=== PATIENT | female | born 1945 | race Caucasian/White ===

== ENCOUNTER → 2016-07-05 | Outpatient (CLI) | payer MEDICARE ==
--- NOTE | 2016-07-05 13:57 | XR ---
EXAMINATION TYPE: XR shoulder limited LT DATE OF EXAM: 07/05/2016 1:52 PM CLINICAL HISTORY: pain COMPARISON: NONE TECHNIQUE: 2 views of the left shoulder are obtained. FINDINGS: There is no acute fracture/dislocation evident. The acromioclavicular and glenohumeral estefania int spaces appear within normal limits. The visualized ribs are intact and unremarkable. IMPRESSION: 1. There is no acute fracture or dislocation. ICD 10 NO FRACTURE, INITIAL EVALUATION
--- NOTE | 2016-07-05 13:58 | XR ---
EXAMINATION TYPE: XR lumbar spine 2 or 3V DATE OF EXAM: 07/05/2016 1:52 PM CLINICAL HISTORY: pain TECHNIQUE: Three views of the lumbar spine are submitted. COMPARISON: None. FINDINGS: There are 5 lumbar type vertebral bodies identified. The lumbar spine shows satisfactory alignment w ithout evidence of acute fracture or dislocation. Vertebral body heights are within normal limits. Severe disc space narrowing and vacuum disc at L4-5 and L5-S1. Grade 1 anterolisthesis L4 and L5 prema suring 5 mm. The overlying soft tissue appears unremarkable. IMPRESSION: No acute fracture or dislocation is seen in the lumbar spine. ICD 10 NO FRACTURE, INITIAL EVALUATION
--- NOTE | 2016-07-05 14:00 | XR ---
EXAMINATION TYPE: XR cervical spine limited DATE OF EXAM: 07/05/2016 1:52 PM CLINICAL HISTORY: pain TECHNIQUE: 3 views of the cervical spine are submitted. COMPARISON: None. FINDINGS: There is satisfactory in alignment without evidence of acute fracture or dislocation. The pre-vertebral soft tissue appears within normal limits. Moderate degenerative disc space narrowing a nd spondylosis throughout. The C1-C2 articulation is unremarkable on the open mouth view. IMPRESSION: No acute fracture or dislocation is seen in the cervical spine.
--- NOTE | 2016-07-05 14:01 | XR ---
EXAMINATION TYPE: XR Hip Bilateral Complete DATE OF EXAM: 07/05/2016 1:52 PM CLINICAL HISTORY: pain TECHNIQUE: AP and frogleg views of the bilateral hips are obtained. COMPARISON: None. FINDINGS: There is no acute fracture/dislocation evident. The joint space appears moderately narro wed bilaterally.. The overlying soft tissue appears unremarkable. IMPRESSION: 1. There is no acute fracture or dislocation. ICD 10 NO FRACTURE, INITIAL EVALUATION
== END | disposition home or self-care (01) ==
LOC: RADXRMAIN 13:03
PROVIDERS: ATTEND Family Medicine
DX: M54.2 Cervicalgia (principal); M54.5 Low back pain; M25.512 Pain in left shoulder; M25.552 Pain in left hip
CPT/HCPCS: 72040; 72100; 73521

== ENCOUNTER → 2016-07-06 | Outpatient (CLI) | payer MEDICARE ==
[2016-07-06 11:25] LABS: ALT 27 U/L (9-52); AST 18 U/L (14-36); Alkaline Phosphatase 48 U/L (38-126); Anion Gap 12 mmol/L; Blood Urea Nitrogen 12 mg/dL (7-17); Calcium 10.2 mg/dL (8.4-10.2); Carbon Dioxide 29 mmol/L (22-30); Chloride 94 mmol/L (98-107); Cholesterol 103 mg/dL (<200); Glucose 131 mg/dL (74-99); HDL Cholesterol 38 mg/dL (40-60); Non-African American GFR(MDRD) >60 (>60 ml/min/1.73 sqM); Potassium 4.1 mmol/L (3.5-5.1); Sodium 135 mmol/L (137-145); Total Bilirubin 0.4 mg/dL (0.2-1.3); Total Protein 7.4 g/dL (6.3-8.2); Triglycerides 150 mg/dL (<150)
[2016-07-06 11:29] LABS: CH 27.4; CHCM 33.7; HCT 37.2 % (34.0-46.0); HDW 2.92; HGB 12.5 gm/dL (11.4-16.0); MCH 27.5 pg (25.0-35.0); MCHC 33.7 g/dL (31.0-37.0); MCV 81.7 fL (80.0-100.0); Mean Platelet Volume 7.2; RBC 4.55 m/uL (3.80-5.40); WBC 7.4 k/uL (3.8-10.6)
[2016-07-06 11:59] LABS: Hemoglobin A1C 6.7 % (4.2-6.1)
== END | disposition home or self-care (01) ==
LOC: LABWHC1 10:40
PROVIDERS: ATTEND Physician Assistant
DX: E11.9 Type 2 diabetes mellitus without complications (principal); E03.9 Hypothyroidism, unspecified; I25.10 Atherosclerotic heart disease of native coronary artery without angina pectoris
CPT/HCPCS: 36415; 80053; 80061; 82043; 83036; 84443; 85027

== ENCOUNTER → 2017-08-22 | Day surgery (SDC) | payer MEDICARE ==
[2017-08-17 14:57] VITALS: BMI 28.3
[~2017-08-22] MED LIST: LACTATED RINGERS 1,000 ML IV SCH; LIDOCAINE 1% 20 ML VIAL (10MG/ML) FOR IV START INTRADERMA PRN; LIDOCAINE 1% INJ 10MG/ML (20 ML MDV) ONE; PROPOFOL 10 MG/ML 20 ML VIAL IV ONE
[2017-08-22 09:20] LABS: Glucose,Whole Blood 165 mg/dL (75-99)
[2017-08-22 09:22] VITALS: TEMP 98.9
--- NOTE | 2017-08-22 10:29 | P.GSHP ---
History of Present Illness H&P Date: 08/22/17 Chief Complaint: Screening colonoscopy This a 72-year-old female who presents today for screening colonoscopy. Her last colonoscopy was over 5 years ago. Patient states that she had a barium enema that time due to a tortuous bowel.. She denies a significant GI complaints. Past Medical History Past Medical History: Diabetes Mellitus, GERD/Reflux, Hyperlipidemia, Hypertension Additional Past Medical History / Comment(s): meniere's disease History of Any Multi-Drug Resistant Organisms: None Reported Past Surgical History: Heart Catheterization, Hysterectomy Additional Past Surgical History / Comment(s): colonoscopy. [facility] Past Anesthesia/Blood Transfusion Reactions: No Reported Reaction Smoking Status: Former smoker - Past Family History Father Family Medical History: Cancer Medications and Allergies Home Medications Medication Instructions Recorded Confirmed Type Aspirin 325 mg PO DAILY 08/17/17 08/22/17 History Atenolol [Tenormin] 25 mg PO BID 08/17/17 08/22/17 History Atorvastatin [Lipitor] 20 mg PO DAILY 08/17/17 08/22/17 History Glimepiride [Amaryl] 8 mg PO BID 08/17/17 08/22/17 History Losartan/Hydrochlorothiazide 1 tab PO DAILY 08/17/17 08/22/17 History [Losartan-Hctz 100-25 mg Tab] Meclizine [Antivert] 25 mg PO DAILY PRN 08/17/17 08/22/17 History Omeprazole 40 mg PO DAILY 08/17/17 08/22/17 History Sucralfate [Carafate] 1 gm PO DAILY PRN 08/17/17 08/22/17 History amLODIPine [Norvasc] 5 mg PO DAILY 08/17/17 08/22/17 History metFORMIN HCL [Glucophage] 1,000 mg PO BID 08/17/17 08/22/17 History Allergies Allergy/AdvReac Type Severity Reaction Status Date / Time Penicillins Allergy Rash/Hives Verified 08/22/17 09:11 Surgical - Exam Vital Signs Temp Pulse Resp BP Pulse Ox 98.9 F 76 16 140/67 98 08/22/17 09:21 08/22/17 09:21 08/22/17 09:21 08/22/17 09:21 08/22/17 09:21 - General well developed, no distress - Eyes PERRL - ENT normal pinna - Neck no masses - Respiratory normal expansion - Cardiovascular Rhythm: regular - Abdomen Abdomen: soft, non tender Results - Labs Abnormal Lab Results - Last 24 Hours (Table) 08/22/17 Range/Units 09:15 POC Glucose (mg/dL) 165 H (75-99) mg/dL Assessment and Plan Assessment: We'll perform screening colonoscopy.
[2017-08-22 10:45] VITALS: RESP 18
[2017-08-22 11:11] VITALS: BP 160/79; PULSE 59
--- NOTE | 2017-08-22 16:46 | FL ---
EXAMINATION TYPE: FL barium enema DATE OF EXAM: 08/22/2017 CLINICAL HISTORY: 72-year-old female incomplete colonoscopy. History of diverticulosis. The patient r eports that the scope could not travel very far due to scarring related to prior hysterectomy. TECHNIQUE: A double contrast barium enema study is performed. Total fluoroscopy time: 2 minutes 17 seconds. Total images: 45 COMPARISON: None. FINDINGS: Internet Technology Manager view of the abdomen shows overall non-obstructive bowel gas pattern. There is a 1.4 cm plaque-like filling defect seen in the upper descending colon just beyond the splen ic flexure on the AP view of the upper abdomen. This finding is not confirmed on additional images. Redundancy of the sigmoid colon causes limitation in assessment. There is moderate diverticulosis of the sigmoid colon. No other evidence for any mass or polyp, obstructing or constricting lesion throughout the colon. The appendix was filled and appeared normal. The terminal ileum was not reflux. IMPRESSION: 1. A 1.4 cm plaque-like filling defect along the upper descending colon just beyond the splenic flexu re seen only on the AP view of the upper abdomen. A sessile polyp is difficult to entirely exclude. 2. Colonic redundancy limiting visualization of the sigmoid colon. There is moderate diverticulosis h ere.
--- NOTE | 2017-08-23 12:20 | P.OP ---
Date of Procedure: 08/23/17 Preoperative Diagnosis: Screening colonoscopy Postoperative Diagnosis: Normal colon Procedure(s) Performed: Colonoscopy Anesthesia: MAC Surgeon: Remy Cardenas Pathology: none sent Condition: stable Disposition: PACU Description of Procedure: N PROCEDURE: The patient was placed on the endoscopy table in the lateral position. Digital rectal examination was performed which revealed no abnormalities.. Flexible colonoscope was then placed in the patient's anus and passed throughout the entire colon. The ileocecal valve was visualized. The cecum, ascending, transverse, descending and sigmoid colon were normal. The rectum was normal as well. There were no masses, polyps or diverticula noted in the entire colon. SUMMARY OF FINDINGS: Normal colonoscopy.
== END | disposition home or self-care (01) ==
LOC: ORWHC2ENDO 08:40
PROVIDERS: ATTEND Surgery
DX: Z12.11 Encounter for screening for malignant neoplasm of colon (principal); K57.90 Diverticulosis of intestine, part unspecified, without perforation or abscess without bleeding; K21.9 Gastro-esophageal reflux disease without esophagitis; E11.9 Type 2 diabetes mellitus without complications; Z79.84 Long term (current) use of oral hypoglycemic drugs; E78.5 Hyperlipidemia, unspecified; I10 Essential (primary) hypertension; H81.09 Meniere's disease, unspecified ear; Z87.891 Personal history of nicotine dependence; Z79.82 Long term (current) use of aspirin; Z79.899 Other long term (current) drug therapy; Z88.0 Allergy status to penicillin
CPT/HCPCS: 74270; J2001; J2704; G0121; 45378

== ENCOUNTER → 2017-08-30 | Outpatient (CLI) | payer MEDICARE ==
[2017-08-30 14:18] LABS: Blood Urea Nitrogen 7 mg/dL (7-17)
--- NOTE | 2017-08-30 17:27 | CT ---
EXAMINATION TYPE: CT abdomen pelvis w con DATE OF EXAM: 08/30/2017 COMPARISON: NONE INDICATION: Left sided colon mass. DLP: 1170 mGycm, Automated exposure control for dose reduction was used. CONTRAST: 100 mL of Isovue M300. Study performed with Oral Contrast TECHNIQUE: Axial images were obtained from above the diaphragm to the pubic rami in the axial plane a t 5 mm thick sections. Reconstructed images are reviewed on the computer in the coronal plane. FINDINGS: Limited CT sections are obtained the lung bases. The lung bases are clear. CT ABDOMEN: Liver: Normal Spleen: Normal Pancreas: Normal Adrenal glands: The adrenal glands are normal. Gallbladder: Normal Kidneys: No masses are evident. No hydronephrosis is present. There is a 1.4 cm medial right mid re nal cyst measuring 3 Hounsfield units. An exophytic cyst on the lateral inferior left kidney measurin g 1.6 cm and 3 Hounsfield units. Delayed images were obtained through the kidneys, which remain unre markable. Aorta: Vascular calcification is within the aorta. There is fusiform prominence of the abdominal aor ta with an AP diameter 2.8 cm. Inferior vena cava: Normal. CT PELVIS: Loops of bowel within the abdomen and pelvis are normal. There are loops of bowel which are incom pletely distended or lack oral contrast limiting their evaluation. Diverticular changes are within the distal descending colon and sigmoid colon. A number of these cont ain very dense barium creating beam hardening artifact. It is not expected to be to this degree which limits the evaluation to this region. Consider follow-up oral contrast CT following clearing of this barium if reevaluation of the bowel would be of benefit. Underlying sigmoid mass should be considere d. Remainder the colon is more normal appearance. Appendix: Normal as visualized. Urinary bladder: Normal. Genitourinary structures: Uterus is not identified. Osseous structures: No suspicious lytic or sclerotic lesions. Degenerative changes are at the bilater al hips right more so than left. IMPRESSIONS: 1. Fusiform prominence mid abdominal aorta with an AP diameter of 2.8 cm. 2. Beam hardening artifact from barium filled diverticula within the sigmoid colon. Underlying sigmoi d mass is suspected with poorly demonstrated given the beam hardening artifact. Consider follow-up wi th oral contrast following clearing of the barium. 3. Renal cysts.
== END | disposition home or self-care (01) ==
LOC: RADCTMAIN 13:34
PROVIDERS: ATTEND Surgery
DX: K57.30 Diverticulosis of large intestine without perforation or abscess without bleeding (principal); N28.1 Cyst of kidney, acquired
CPT/HCPCS: 82565; 84520; 74177; 36415; Q9967

== ENCOUNTER → 2017-09-13 | Outpatient (CLI) | payer MEDICARE ==
[2017-09-13 15:40] LABS: MCHC 33.4 g/dL (31.0-37.0); MCV 80.8 fL (80.0-100.0); Mean Platelet Volume 6.7; Platelet Count 363 k/uL (150-450); RBC 4.46 m/uL (3.80-5.40); RDW 13.8 % (11.5-15.5); WBC 10.6 k/uL (3.8-10.6)
[2017-09-13 15:47] LABS: Potassium 4.7 mmol/L (3.5-5.1)
== END | disposition home or self-care (01) ==
LOC: LABPAT 14:57
PROVIDERS: ATTEND Surgery
DX: Z01.812 Encounter for preprocedural laboratory examination (principal); K57.32 Diverticulitis of large intestine without perforation or abscess without bleeding
CPT/HCPCS: 36415; 80051; 85027; 86850; 86900; 86901

== ENCOUNTER 2017-09-20 07:11 | Inpatient (IN) | payer MEDICARE ==
[~2017-09-20 07:11] MED LIST changes: +DEXAMETHASONE SOD PHOSPHATE 10 MG/ML 1 ML VIAL IV ONE; +HEPARIN SODIUM,PORCINE 5,000 UNIT/ML 1 ML VIAL SQ ONE; -LIDOCAINE 1% INJ 10MG/ML (20 ML MDV) ONE; +MIDAZOLAM 2 MG/2 ML VIAL IV PRN; +MORPHINE SULFATE 2 MG/ML SYRINGE IV PRN; +ONDANSETRON 4 MG/2 ML VIAL IVP ONE; -PROPOFOL 10 MG/ML 20 ML VIAL IV ONE; +ceFAZolin IN SWFI 2 GM/20 ML SYRINGE IVP ONE; +metroNIDAZOLE-NS PMX 500 MG in SALINE 1 100ML.BAG IVPB ONE
[2017-09-20 08:53] LABS: Glucose,Whole Blood 190 mg/dL (75-99)
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
[2017-09-20] MEDS ORDERED: fentaNYL (PF) 50 MCG/ML 2 ML AMP IV ONE (09:35)
[2017-09-20] MEDS ORDERED: NALBUPHINE 10 MG/ML AMPUL IV PRN (09:48)
[2017-09-20] MEDS ORDERED: ONDANSETRON 4 MG/2 ML VIAL IVP PRN (09:48)
[2017-09-20] MEDS ORDERED: NALOXONE 0.4 MG/ML 1 ML VIAL IV PRN (09:48)
[2017-09-20] MEDS ORDERED: GLYCOPYRROLATE 0.2 MG/ML 2 ML VIAL ONE (09:55)
[2017-09-20] MEDS ORDERED: ROCURONIUM BROMIDE 10 MG/ML 10 ML VIAL IV ONE (09:55)
[2017-09-20] MEDS ORDERED: PROPOFOL 10 MG/ML 20 ML VIAL IV ONE (09:55)
[2017-09-20] MEDS ORDERED: LIDOCAINE 1% INJ 10MG/ML (20 ML MDV) ONE (09:55)
[2017-09-20] MEDS ORDERED: SUCCINYLCHOLINE CHLORIDE 100 MG/5 ML SYR IV ONE (09:55)
[2017-09-20] MEDS ORDERED: NEOSTIGMINE 1 MG/ML 10 ML VIAL ONE (09:55)
[2017-09-20] MEDS ORDERED: MIDAZOLAM 2 MG/2 ML VIAL ONE (09:55)
[2017-09-20] MEDS ORDERED: fentaNYL (PF) 50 MCG/ML 2 ML AMP ONE (09:55)
[2017-09-20] MEDS ORDERED: PHENYLEPHRINE-0.9% NACL SYG 1 MG/10 ML SYRINGE ONE (09:55)
[2017-09-20] MEDS ORDERED: LACTATED RINGERS 1,000 ML IV ONE (10:54)
[2017-09-20] MEDS: BUPIVACAINE (PF) 0.5% 31.3 ML, fentaNYL (PF) 1,250 MCG in SODIUM CHLORIDE 0.9% 194 ML EPIDURAL PRN ×2 (11:40→12:13)
--- NOTE | 2017-09-20 11:47 | P.OP ---
Date of Procedure: 09/20/17 Preoperative Diagnosis: History of diverticulitis Postoperative Diagnosis: Sigmoid colon mass Procedure(s) Performed: Low anterior resection Anesthesia: LEAH Surgeon: Remy Cardenas Estimated Blood Loss (ml): 50 Pathology: other (Sigmoid colon) Condition: stable Disposition: PACU Description of Procedure: The patient's placed on the operative table in the supine position. She received general anesthesia. Her abdomen was prepped and draped in the usual sterile fashion after she was placed in dorsal lithotomy position. The abdomen was entered through a low midline incision. The Bookwalter tract with wound. The abdomen was explored. There appeared to be a mass in the sigmoid colon. There is also diverticular changes. The mass had the appearance of a diverticular laboratory mass At this point the left colon was mobilized by dividing the white line of Toldt. The proximal colon was then transected using a GI stapler. And then using LigaSure device the mesentery the sigmoid colon and rectum were divided. The rectum was then transected with the contour stapler. The pursestring device was placed on the proximal colon. The pursestring was then fired. The colon was opened and the 25 mm EEA anvil was placed in the colon and then the pursestring was secured. The social work assistant then placed the EEA stapler into the anus and then stapler was positioned in the rectum. The spike was driven through the anterior rectal wall. The anvil was connected to the stapler. The stapler was then closed and fired. 2 intact tissue rings were withdrawn. Next using a high The bowel was occluded and then using the rigid sigmoidoscope the rectum was insufflated after adequate insufflation the anastomosis was visualized. There is no evidence of extravasation of air. The abdomen was irrigated. There is no bleeding seen. The wound was then closed using the cold clean instruments. O PDS suture was used to close the fascia. Skin was closed yara. Patient was sent to recovery room stable condition.
[2017-09-20 11:53] LABS: Glucose,Whole Blood 187 mg/dL (75-99)
[2017-09-20 12:53] LABS: Basophils % (A) 0 %; Eosinophils % (A) 0 %; HCT 39.3 % (34.0-46.0); HGB 13.2 gm/dL (11.4-16.0); Lymphocytes # (A) 1.3 k/uL (1.0-4.8); Lymphocytes % (A) 10 %; MCH 27.6 pg (25.0-35.0); MCHC 33.5 g/dL (31.0-37.0); MCV 82.5 fL (80.0-100.0); Mean Platelet Volume 6.9; Monocytes # (A) 0.3 k/uL (0-1.0); Monocytes % (A) 2 %; Neutrophils # (A) 11.3 k/uL (1.3-7.7); Neutrophils % (A) 87 %; Platelet Count 288 k/uL (150-450); RBC 4.77 m/uL (3.80-5.40); RDW 14.5 % (11.5-15.5)
[2017-09-20 13:02] LABS: Anion Gap 12 mmol/L; Blood Urea Nitrogen 7 mg/dL (7-17); Calcium 9.5 mg/dL (8.4-10.2); Carbon Dioxide 27 mmol/L (22-30); Chloride 97 mmol/L (98-107); Glucose 214 mg/dL (74-99); Potassium 3.9 mmol/L (3.5-5.1); Sodium 136 mmol/L (137-145)
[2017-09-20] MEDS ORDERED: ENALAPRILAT 1.25 MG/ML 1 ML VIAL IVP PRN (13:13)
[2017-09-20] MEDS: D5-0.45% NACL WITH KCL 20MEQ/L 1,000 ML IV SCH ×2 (13:41→21:13)
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
[2017-09-20 17:11] LABS: Glucose,Whole Blood 284 mg/dL (75-99)
[2017-09-20] MEDS: HEPARIN SODIUM,PORCINE 5,000 UNIT/ML 1 ML VIAL SQ SCH ×2 (17:15→23:12)
[2017-09-20] MEDS: INSULIN ASPART 100 UNIT/ML 1 ML 10 ML VIAL SQ SCH ×2 (17:18→21:13)
[2017-09-20 19:12] LABS: Hemoglobin A1C 6.9 % (4.0-6.0)
[2017-09-20 21:01] LABS: Glucose,Whole Blood 277 mg/dL (75-99)
[2017-09-20] MEDS: LATANOPROST 0.005% OPHTH DROPS 2.5 ML BTL RIGHT EYE SCH (21:13)
[2017-09-21] MEDS: D5-0.45% NACL WITH KCL 20MEQ/L 1,000 ML IV SCH (04:56)
[2017-09-21 07:55] LABS: Basophils % (A) 0 %; Eosinophils % (A) 0 %; HCT 31.4 % (34.0-46.0); HGB 10.4 gm/dL (11.4-16.0); Lymphocytes # (A) 1.3 k/uL (1.0-4.8); Lymphocytes % (A) 10 %; MCH 27.3 pg (25.0-35.0); MCV 82.8 fL (80.0-100.0); Monocytes # (A) 0.7 k/uL (0-1.0); Monocytes % (A) 5 %; Neutrophils # (A) 10.9 k/uL (1.3-7.7); Neutrophils % (A) 84 %; Platelet Count 261 k/uL (150-450); RDW 14.4 % (11.5-15.5)
--- NOTE | 2017-09-21 07:57 | P.PN ---
Progress Note - Text 09/21 650am 72-year-old female status post low anterior resection with Dr. pelletier. Patient has an epidural for postop pain control and the solution is running at 6 mL an hour. Patient has a VAS of 3, no motor or sensory deficits noted, complains of mild pruritus. Plan to continue epidural infusion
[2017-09-21 08:01] LABS: ALT 26 U/L (9-52); AST 25 U/L (14-36); Albumin 3.2 g/dL (3.5-5.0); Alkaline Phosphatase 43 U/L (38-126); Anion Gap 11 mmol/L; Blood Urea Nitrogen 11 mg/dL (7-17); Calcium 9.2 mg/dL (8.4-10.2); Carbon Dioxide 24 mmol/L (22-30); Chloride 99 mmol/L (98-107); Glucose 207 mg/dL (74-99); Potassium 4.4 mmol/L (3.5-5.1); Sodium 134 mmol/L (137-145); Total Bilirubin 0.4 mg/dL (0.2-1.3); Total Protein 5.6 g/dL (6.3-8.2)
[2017-09-21 08:16] LABS: Glucose,Whole Blood 204 mg/dL (75-99)
[2017-09-21] MEDS: PANTOPRAZOLE 40 MG/10 ML VIAL IVP SCH (08:30)
[2017-09-21] MEDS: HEPARIN SODIUM,PORCINE 5,000 UNIT/ML 1 ML VIAL SQ SCH ×2 (08:30→16:00)
[2017-09-21] MEDS: ALVIMOPAN 12 MG CAPSULE PO SCH ×2 (08:30→21:41)
[2017-09-21] MEDS: INSULIN ASPART 100 UNIT/ML 1 ML 10 ML VIAL SQ SCH ×4 (08:30→21:41)
--- NOTE | 2017-09-21 09:22 | P.PN ---
Subjective Progress Note Date: 09/21/17 72-year-old female sitting up in bed reports no nausea sensation currently nothing by mouth except ice chips Patient's states belching not passing gas. Epidural in place per anesthesia for pain control. Surgical dressing site dry. Indwelling Villagomez catheter in place jeffy urine Postop 20 of September low anterior resection for a sigmoid colon mass in a patient with a history of diverticulitis Objective - Vital Signs Vital signs: Vital Signs Temp 98.2 F 09/21/17 07:55 Pulse 71 09/21/17 07:55 Resp 16 09/21/17 07:55 BP 133/64 09/21/17 07:55 Pulse Ox 94 L 09/21/17 07:55 Intake & Output 09/20/17 09/21/17 09/21/17 18:59 06:59 18:59 Intake Total 1654 2000 Output Total 450 400 Balance 1204 1600 Weight 72.575 kg Intake: IV 1654 Intake, IV Titration 2000 Amount D5-0.45% NaCl with KCl 2000 20Meq/l 1,000 ml @ 125 mls/hr IV .Q8H [facility] Rx#: [id number] Output: Urine 400 400 Estimated Blood Loss 50 Other: Voiding Method Indwelling Catheter Indwelling Catheter - Exam Physical exam Pleasant 72-year-old female sitting up in bed appearing in no acute distress oriented 3 Lungs adequate air movement bilaterally on room air no shortness of breath Heart S1-S2 audible regular denies chest pain Abdomen soft surgical tenderness appropriate active bowel tones noted belching not passing gas indwelling Villagomez catheter in place surgical dressing site dry Extremities Venodyne's on to the bilateral lower extremities - Labs CBC & Chem 7: 09/21/17 07:25 09/21/17 07:25 Labs: Abnormal Lab Results - Last 24 Hours (Table) 09/20/17 09/20/17 09/20/17 Range/Units 11:44 12:38 12:38 WBC 13.0 H (3.8-10.6) k/uL Hgb (11.4-16.0) gm/dL Hct (34.0-46.0) % Neutrophils # 11.3 H (1.3-7.7) k/uL Sodium 136 L (137-145) mmol/L Chloride 97 L (98-107) mmol/L Glucose 214 H (74-99) mg/dL POC Glucose (mg/dL) 187 H (75-99) mg/dL Hemoglobin A1c (4.0-6.0) % Total Protein (6.3-8.2) g/dL Albumin (3.5-5.0) g/dL 09/20/17 09/20/17 09/20/17 Range/Units 12:38 17:08 20:58 WBC (3.8-10.6) k/uL Hgb (11.4-16.0) gm/dL Hct (34.0-46.0) % Neutrophils # (1.3-7.7) k/uL Sodium (137-145) mmol/L Chloride (98-107) mmol/L Glucose (74-99) mg/dL POC Glucose (mg/dL) 284 H 277 H (75-99) mg/dL Hemoglobin A1c 6.9 H (4.0-6.0) % Total Protein (6.3-8.2) g/dL Albumin (3.5-5.0) g/dL 09/21/17 09/21/17 09/21/17 Range/Units 07:25 07:25 08:12 WBC 13.0 H (3.8-10.6) k/uL Hgb 10.4 L (11.4-16.0) gm/dL Hct 31.4 L (34.0-46.0) % Neutrophils # 10.9 H (1.3-7.7) k/uL Sodium 134 L (137-145) mmol/L Chloride (98-107) mmol/L Glucose 207 H (74-99) mg/dL POC Glucose (mg/dL) 204 H (75-99) mg/dL Hemoglobin A1c (4.0-6.0) % Total Protein 5.6 L (6.3-8.2) g/dL Albumin 3.2 L (3.5-5.0) g/dL Assessment and Plan Assessment: Impression History of diverticulitis with severe diverticulosis sigmoid colon mass per previous CAT scan of the abdomen Low anterior resection for a sigmoid colon mass done on September 20 Plan Continue postop surgical care Encourage the use of the incentive spirometer Pain control per anesthesia for epidural DVT and GI prophylaxis Increase activity as tolerated Nothing by mouth except ice chips advance as appropriate The above impression and plan of care have been discussed and directed by signing physician. Sofie Mcmahan nurse practitioner acting as scribe for signing physician.
--- NOTE | 2017-09-21 10:45 | P.PN ---
Subjective Progress Note Date: 09/21/17 This is a 72-year-old female, patient of [facility]. She has a known past medical history of diabetes, hyperlipidemia, hypertension, Mnire's disease, irregular heartbeat in which she takes atenolol and chronic back pain. Patient has been suffering with severe diverticulosis and his diverticulitis. She also had a questionable sigmoid colon mass on a previous computed tomography scan of the abdomen. Patient underwent a lower anterior resection today with Dr. Cardenas. Estimated blood loss 50 mL. No complications reported after surgery. We were consulted for medical management. Patient denies any chest pain or shortness of breath. Denies any nausea or vomiting. Has Villagomez catheter in place. Patient currently also has an epidural is nothing by mouth 09/21/2017 patient's abdominal pain is tolerable. She denies any nausea or vomiting. Denies any chest pain or shortness of breath. Denies passing gas or bowel movement yet. Still is Villagomez catheter and epidural. Blood sugars are been in the 200s likely related to the dextrose in the IV fluids as well as she received dexamethasone in the OR. Continue sliding scale coverage will discontinue the D5 half-normal saline and place her on normal saline at 125 mL an hour. A1c 6.9 Objective - Vital Signs Vital signs: Vital Signs Temp 98.2 F 09/21/17 07:55 Pulse 71 09/21/17 07:55 Resp 16 09/21/17 07:55 BP 133/64 09/21/17 07:55 Pulse Ox 94 L 09/21/17 07:55 Intake & Output 09/20/17 09/21/17 09/21/17 18:59 06:59 18:59 Intake Total 1654 2000 Output Total 450 400 Balance 1204 1600 Weight 72.575 kg Intake: IV 1654 Intake, IV Titration 2000 Amount D5-0.45% NaCl with KCl 2000 20Meq/l 1,000 ml @ 125 mls/hr IV .Q8H [facility] Rx#: [id number] Output: Urine 400 400 Estimated Blood Loss 50 Other: Voiding Method Indwelling Catheter Indwelling Catheter Indwelling Catheter - Exam Head normocephalic Neck supple Lungs clear to auscultation bilaterally no wheezing or crackles Heart regular rate and rhythm S1-S2, no rub or gallop Abdomen is soft nontender nondistended positive bowel sounds no hepatosplenomegaly. Incision site dressing show some blood and dried blood at the distal aspect Extremities no edema Neuro alert and orientated to 3 - Labs CBC & Chem 7: 09/21/17 07:25 09/21/17 07:25 Labs: Abnormal Lab Results - Last 24 Hours (Table) 09/20/17 09/20/17 09/20/17 Range/Units 11:44 12:38 12:38 WBC 13.0 H (3.8-10.6) k/uL Hgb (11.4-16.0) gm/dL Hct (34.0-46.0) % Neutrophils # 11.3 H (1.3-7.7) k/uL Sodium 136 L (137-145) mmol/L Chloride 97 L (98-107) mmol/L Glucose 214 H (74-99) mg/dL POC Glucose (mg/dL) 187 H (75-99) mg/dL Hemoglobin A1c (4.0-6.0) % Total Protein (6.3-8.2) g/dL Albumin (3.5-5.0) g/dL 09/20/17 09/20/17 09/20/17 Range/Units 12:38 17:08 20:58 WBC (3.8-10.6) k/uL Hgb (11.4-16.0) gm/dL Hct (34.0-46.0) % Neutrophils # (1.3-7.7) k/uL Sodium (137-145) mmol/L Chloride (98-107) mmol/L Glucose (74-99) mg/dL POC Glucose (mg/dL) 284 H 277 H (75-99) mg/dL Hemoglobin A1c 6.9 H (4.0-6.0) % Total Protein (6.3-8.2) g/dL Albumin (3.5-5.0) g/dL 09/21/17 09/21/17 09/21/17 Range/Units 07:25 07:25 08:12 WBC 13.0 H (3.8-10.6) k/uL Hgb 10.4 L (11.4-16.0) gm/dL Hct 31.4 L (34.0-46.0) % Neutrophils # 10.9 H (1.3-7.7) k/uL Sodium 134 L (137-145) mmol/L Chloride (98-107) mmol/L Glucose 207 H (74-99) mg/dL POC Glucose (mg/dL) 204 H (75-99) mg/dL Hemoglobin A1c (4.0-6.0) % Total Protein 5.6 L (6.3-8.2) g/dL Albumin 3.2 L (3.5-5.0) g/dL Assessment and Plan Assessment: 1. Status post lower anterior resection with a known history of diverticulitis and evidence of a sigmoid colon mass: Patient is currently nothing by mouth. Also has epidural placed. Continue with surgical postop orders 2. Essential hypertension: We'll place patient on IV Vasotec as needed for elevated blood pressure. Unable to start oral blood pressure medications at this time due to her nothing by mouth diet. Blood pressures are stable 3. Diabetes mellitus type 2: Place patient on NovoLog sliding scale coverage. Hold oral hypoglycemics for now. Patient having episodes of hyperglycemia as stated above due to dexamethasone and D5W IV fluids. Discontinue the D5W half- normal saline and place patient on normal saline 125 mL an hour. Continue to monitor. Continue sliding scale 4. History of irregular heartbeat, possibly PVCs. Patient denies any history of V. tach or atrial fibrillation. She reports she takes atenolol at home. At this time we'll place her on telemetry monitoring. Atenolol is on hold because she is nothing by mouth 5. Hyperlipidemia 6. History of chronic back pain and herniated disks DVT prophylaxis subcu heparin I performed an examination of the patient and discussed their management with the physician Batch And Furnace Manager. I have reviewed the Physician Batch And Furnace Manager's notes and agree with the documented findings and plan of care
[2017-09-21] MEDS: SODIUM CHLORIDE 0.9% 1,000 ML IV SCH ×3 (11:33→19:42)
[2017-09-21 12:03] LABS: Glucose,Whole Blood 208 mg/dL (75-99)
[2017-09-21 17:05] LABS: Glucose,Whole Blood 108 mg/dL (75-99)
[2017-09-21 21:00] LABS: Glucose,Whole Blood 148 mg/dL (75-99)
[2017-09-21] MEDS: LATANOPROST 0.005% OPHTH DROPS 2.5 ML BTL RIGHT EYE SCH (21:41)
[2017-09-22] MEDS ORDERED: LIDOCAINE 1% INJ 10MG/ML (20 ML MDV) ONE (00:05)
[2017-09-22] MEDS: HEPARIN SODIUM,PORCINE 5,000 UNIT/ML 1 ML VIAL SQ SCH ×4 (00:58→23:34)
[2017-09-22] MEDS: BUPIVACAINE (PF) 0.5% 31.3 ML, fentaNYL (PF) 1,250 MCG in SODIUM CHLORIDE 0.9% 194 ML EPIDURAL PRN (03:47)
[2017-09-22 07:02] LABS: Glucose,Whole Blood 169 mg/dL (75-99)
[2017-09-22 07:16] LABS: ALT 31 U/L (9-52); AST 43 U/L (14-36); Albumin 3.4 g/dL (3.5-5.0); Alkaline Phosphatase 51 U/L (38-126); Anion Gap 14 mmol/L; Blood Urea Nitrogen 5 mg/dL (7-17); Carbon Dioxide 22 mmol/L (22-30); Chloride 101 mmol/L (98-107); Glucose 162 mg/dL (74-99); Potassium 3.8 mmol/L (3.5-5.1); Sodium 137 mmol/L (137-145); Total Bilirubin 0.4 mg/dL (0.2-1.3); Total Protein 5.9 g/dL (6.3-8.2)
[2017-09-22 07:21] LABS: Basophils % (A) 0 %; Eosinophils # (A) 0.1 k/uL (0-0.7); Eosinophils % (A) 1 %; HCT 34.3 % (34.0-46.0); HGB 11.4 gm/dL (11.4-16.0); Lymphocytes # (A) 2.2 k/uL (1.0-4.8); Lymphocytes % (A) 20 %; MCH 27.6 pg (25.0-35.0); MCHC 33.2 g/dL (31.0-37.0); MCV 83.2 fL (80.0-100.0); Mean Platelet Volume 6.5; Monocytes # (A) 0.6 k/uL (0-1.0); Monocytes % (A) 5 %; Neutrophils % (A) 73 %; Platelet Count 228 k/uL (150-450); RBC 4.12 m/uL (3.80-5.40); RDW 14.4 % (11.5-15.5)
[2017-09-22] MEDS: ALVIMOPAN 12 MG CAPSULE PO SCH ×2 (08:34→20:05)
[2017-09-22] MEDS: PANTOPRAZOLE 40 MG/10 ML VIAL IVP SCH (08:34)
[2017-09-22] MEDS: SODIUM CHLORIDE 0.9% 1,000 ML IV SCH ×2 (08:35→19:48)
[2017-09-22] MEDS: INSULIN ASPART 100 UNIT/ML 1 ML 10 ML VIAL SQ SCH ×4 (08:37→21:45)
--- NOTE | 2017-09-22 08:42 | P.PN ---
Progress Note - Text Date: 09/22/2017 Time: 08 The patient is status post, low anterior resection, postoperative day number 2 The patient has no complaints of nausea vomiting or headache. The patient does not complain of any lower extremity numbness or weakness. VAS 0-1-10. The epidural is running at 6 mL per hour. The epidural will be maintained and adjusted as needed.
[2017-09-22 11:28] LABS: Glucose,Whole Blood 186 mg/dL (75-99)
--- NOTE | 2017-09-22 13:13 | P.PN ---
Subjective Progress Note Date: 09/22/17 Patient is s/p colectomy for sigmoid mass. She reports mild abdominal gas bloat and pressure from her mcknight catheter. She is conversating with her neighbor in the room. Otherwise, she is doing well. She is eager to ambulate and has concerns that she is not getting assistance to move around. Objective - Vital Signs Vital signs: Vital Signs Temp 98.9 F 09/22/17 08:26 Pulse 93 09/22/17 08:26 Resp 17 09/22/17 08:27 BP 150/76 09/22/17 08:26 Pulse Ox 93 L 09/22/17 08:26 Intake & Output 09/21/17 09/22/17 09/22/17 18:59 06:59 18:59 Intake Total 470 2000 240 Output Total 1500 2800 Balance -1030 -800 240 Intake: Intake, IV Titration 2000 Amount Sodium Chloride 0.9% 1, 2000 000 ml @ 125 mls/hr IV . Q8H [facility] Rx#:[id number] Oral 470 240 Output: Urine 1500 2800 Uretheral (Mcknight) 2800 Other: Voiding Method Indwelling Catheter Indwelling Catheter Indwelling Catheter - Exam GENERAL: Well-developed pleasant in no acute distress. Epidural present. HEENT: No scleral icterus. Extraocular movements grosslyintact. Moist buccal mucosa. NECK: Supple without lymphadenopathy. CHEST: Unlabored respirations. Equal bilateral excursions. CARDIOVASCULAR: Regular rate and rhythm. Distal 2+ pulses. ABDOMEN: Soft, mildy distended. No peritoneal signs. Dressings intact. MUSCULOSKELETAL: No clubbing, cyanosis, or edema. NEURO: No focal or lateralizing signs PSYCH: Appropriate affect. Alert and oriented to person, place, and time. SKIN: Well perfused and good skin turgor. : Mcknight catheter, clear and yellow. - Labs CBC & Chem 7: 09/22/17 06:31 09/22/17 06:31 Labs: Abnormal Lab Results - Last 24 Hours (Table) 09/21/17 09/21/17 09/22/17 Range/Units 17:02 20:52 06:31 WBC 11.0 H (3.8-10.6) k/uL Neutrophils # 8.0 H (1.3-7.7) k/uL BUN (7-17) mg/dL Glucose (74-99) mg/dL POC Glucose (mg/dL) 108 H 148 H (75-99) mg/dL AST (14-36) U/L Total Protein (6.3-8.2) g/dL Albumin (3.5-5.0) g/dL 09/22/17 09/22/17 09/22/17 Range/Units 06:31 07:01 11:26 WBC (3.8-10.6) k/uL Neutrophils # (1.3-7.7) k/uL BUN 5 L (7-17) mg/dL Glucose 162 H (74-99) mg/dL POC Glucose (mg/dL) 169 H 186 H (75-99) mg/dL AST 43 H (14-36) U/L Total Protein 5.9 L (6.3-8.2) g/dL Albumin 3.4 L (3.5-5.0) g/dL Assessment and Plan (1) Diverticulitis Current Visit: Yes Status: Acute Code(s): K57.92 - DVTRCLI OF INTEST, PART UNSP, W/O PERF OR ABSCESS W/O BLEED SNOMED Code(s): 537921641 (2) S/P colectomy Current Visit: Yes Status: Acute Code(s): Z90.49 - ACQUIRED ABSENCE OF OTHER SPECIFIED PARTS OF DIGESTIVE TRACT SNOMED Code(s): 037782448 Plan: 1. Continue epidural. 2. Continue Entereg. 3. Clear liquid diet. 4. Continue hospitalization of the weekend.
[2017-09-22] MEDS: TAMSULOSIN 0.4 MG CAP.ER.24H PO SCH (13:46)
--- NOTE | 2017-09-22 16:34 | P.PN ---
Subjective Progress Note Date: 09/22/17 This is a 72-year-old female, patient of [facility]. She has a known past medical history of diabetes, hyperlipidemia, hypertension, Mnire's disease, irregular heartbeat in which she takes atenolol and chronic back pain. Patient has been suffering with severe diverticulosis and his diverticulitis. She also had a questionable sigmoid colon mass on a previous computed tomography scan of the abdomen. Patient underwent a lower anterior resection today with Dr. Cardenas. Estimated blood loss 50 mL. No complications reported after surgery. We were consulted for medical management. Patient denies any chest pain or shortness of breath. Denies any nausea or vomiting. Has Villagomez catheter in place. Patient currently also has an epidural is nothing by mouth 09/21/2017 patient's abdominal pain is tolerable. She denies any nausea or vomiting. Denies any chest pain or shortness of breath. Denies passing gas or bowel movement yet. Still is Villagomez catheter and epidural. Blood sugars are been in the 200s likely related to the dextrose in the IV fluids as well as she received dexamethasone in the OR. Continue sliding scale coverage will discontinue the D5 half-normal saline and place her on normal saline at 125 mL an hour. A1c 6.9 On 09/22/2017 patient is alert and oriented 3 in no apparent distress pain is well tolerated there is no fever or chills no nausea or vomiting no chest pain or shortness of breath patient has occasional cough Villagomez catheter is still in causing some discomfort otherwise no complaints at this time Objective - Vital Signs Vital signs: Vital Signs Temp 98.4 F 09/22/17 15:00 Pulse 108 H 09/22/17 15:00 Resp 19 09/22/17 15:00 BP 157/88 09/22/17 15:00 Pulse Ox 93 L 09/22/17 15:00 Intake & Output 09/21/17 09/22/17 09/22/17 18:59 06:59 18:59 Intake Total 470 2000 360 Output Total 1500 2800 750 Balance -1030 -800 -390 Intake: Intake, IV Titration 2000 Amount Sodium Chloride 0.9% 1, 2000 000 ml @ 125 mls/hr IV . Q8H [facility] Rx#:[id number] Oral 470 360 Output: Urine 1500 2800 750 Uretheral (Villagomez) 2800 Other: Voiding Method Indwelling Catheter Indwelling Catheter Indwelling Catheter - Exam Head normocephalic and atraumatic Neck supple no JVD no goiter Lungs clear to auscultation bilaterally no wheezing or crackles Heart regular rate and rhythm S1-S2, no rub or gallop Abdomen is soft nontender nondistended positive bowel sounds no hepatosplenomegaly. Incision site dressing show some blood and dried blood at the distal aspect Extremities no edema no cyanosis or clubbing Neuro alert and orientated to 3 - Labs CBC & Chem 7: 09/22/17 06:31 09/22/17 06:31 Labs: Abnormal Lab Results - Last 24 Hours (Table) 09/21/17 09/21/17 09/22/17 Range/Units 17:02 20:52 06:31 WBC 11.0 H (3.8-10.6) k/uL Neutrophils # 8.0 H (1.3-7.7) k/uL BUN (7-17) mg/dL Glucose (74-99) mg/dL POC Glucose (mg/dL) 108 H 148 H (75-99) mg/dL AST (14-36) U/L Total Protein (6.3-8.2) g/dL Albumin (3.5-5.0) g/dL 09/22/17 09/22/17 09/22/17 Range/Units 06:31 07:01 11:26 WBC (3.8-10.6) k/uL Neutrophils # (1.3-7.7) k/uL BUN 5 L (7-17) mg/dL Glucose 162 H (74-99) mg/dL POC Glucose (mg/dL) 169 H 186 H (75-99) mg/dL AST 43 H (14-36) U/L Total Protein 5.9 L (6.3-8.2) g/dL Albumin 3.4 L (3.5-5.0) g/dL Assessment and Plan Plan: 1. Status post lower anterior resection with a known history of diverticulitis and evidence of a sigmoid colon mass: Patient is currently nothing by mouth. Also has epidural placed. Continue with surgical postop orders 2. Essential hypertension: We'll place patient on IV Vasotec as needed for elevated blood pressure. Unable to start oral blood pressure medications at this time due to her nothing by mouth diet. Blood pressures are stable 3. Diabetes mellitus type 2: Place patient on NovoLog sliding scale coverage. Hold oral hypoglycemics for now. Patient having episodes of hyperglycemia as stated above due to dexamethasone and D5W IV fluids. Discontinue the D5W half- normal saline and place patient on normal saline 125 mL an hour. Continue to monitor. Continue sliding scale 4. History of irregular heartbeat, possibly PVCs. Patient denies any history of V. tach or atrial fibrillation. She reports she takes atenolol at home. At this time we'll place her on telemetry monitoring. Atenolol is on hold because she is nothing by mouth 5. Hyperlipidemia 6. History of chronic back pain and herniated disks DVT prophylaxis subcu heparin
[2017-09-22] MEDS ORDERED: ARTIFICIAL TEARS-HYPROMELLOSE DROPS 15 ML BTL BOTH EYES PRN (16:50)
[2017-09-22] MEDS ORDERED: MECLIZINE 25 MG TAB PO PRN (16:50)
[2017-09-22] MEDS ORDERED: SUCRALFATE 1 GM TAB PO PRN (16:50)
[2017-09-22] MEDS: amLODIPine 5 MG TAB PO SCH (17:31)
[2017-09-22 17:33] LABS: Glucose,Whole Blood 200 mg/dL (75-99)
[2017-09-22] MEDS ORDERED: [UNRECOGNIZED DRUG - OTHER] BOTH EYES SCH (18:00)
[2017-09-22] MEDS: ATENOLOL 25 MG TAB PO SCH (19:47)
[2017-09-22] MEDS: LATANOPROST 0.005% OPHTH DROPS 2.5 ML BTL RIGHT EYE SCH (20:05)
[2017-09-22 20:39] LABS: Glucose,Whole Blood 189 mg/dL (75-99)
[2017-09-23] MEDS: SODIUM CHLORIDE 0.9% 1,000 ML IV SCH ×4 (03:53→23:25)
[2017-09-23] MEDS: BUPIVACAINE (PF) 0.5% 31.3 ML, fentaNYL (PF) 1,250 MCG in SODIUM CHLORIDE 0.9% 194 ML EPIDURAL PRN (04:42)
[2017-09-23 06:59] LABS: Glucose,Whole Blood 166 mg/dL (75-99)
[2017-09-23 07:14] LABS: Basophils % (A) 0 %; Eosinophils # (A) 0.2 k/uL (0-0.7); Eosinophils % (A) 2 %; HCT 33.7 % (34.0-46.0); HGB 10.9 gm/dL (11.4-16.0); Lymphocytes # (A) 2.7 k/uL (1.0-4.8); Lymphocytes % (A) 28 %; MCH 26.9 pg (25.0-35.0); MCHC 32.4 g/dL (31.0-37.0); Mean Platelet Volume 6.6; Monocytes # (A) 0.5 k/uL (0-1.0); Monocytes % (A) 6 %; Neutrophils # (A) 6.2 k/uL (1.3-7.7); Neutrophils % (A) 63 %; Platelet Count 275 k/uL (150-450); RBC 4.06 m/uL (3.80-5.40); RDW 14.6 % (11.5-15.5); WBC 9.8 k/uL (3.8-10.6)
[2017-09-23 07:24] LABS: ALT 31 U/L (9-52); AST 26 U/L (14-36); Alkaline Phosphatase 46 U/L (38-126); Anion Gap 11 mmol/L; Blood Urea Nitrogen 7 mg/dL (7-17); Calcium 8.2 mg/dL (8.4-10.2); Carbon Dioxide 23 mmol/L (22-30); Chloride 98 mmol/L (98-107); Glucose 157 mg/dL (74-99); Potassium 3.9 mmol/L (3.5-5.1); Sodium 132 mmol/L (137-145); Total Bilirubin 0.7 mg/dL (0.2-1.3); Total Protein 5.3 g/dL (6.3-8.2)
[2017-09-23] MEDS: INSULIN ASPART 100 UNIT/ML 1 ML 10 ML VIAL SQ SCH ×4 (07:44→22:02)
[2017-09-23] MEDS: TAMSULOSIN 0.4 MG CAP.ER.24H PO SCH (07:45)
[2017-09-23] MEDS: ALVIMOPAN 12 MG CAPSULE PO SCH ×2 (07:45→20:11)
[2017-09-23] MEDS: ATENOLOL 25 MG TAB PO SCH ×2 (07:45→20:12)
[2017-09-23] MEDS: HEPARIN SODIUM,PORCINE 5,000 UNIT/ML 1 ML VIAL SQ SCH ×3 (07:45→23:25)
[2017-09-23] MEDS: CALCIUM CARBONATE 500 MG CHEWABLE PO SCH (07:46)
[2017-09-23] MEDS: LOSARTAN-HCTZ 50-12.5 MG 1 EACH TAB PO SCH (07:46)
[2017-09-23] MEDS: ATORVASTATIN 20 MG TAB PO SCH (07:46)
[2017-09-23] MEDS: PANTOPRAZOLE 40 MG/10 ML VIAL IVP SCH (07:46)
[2017-09-23] MEDS: CHOLECALCIFEROL 1,000 UNIT TAB PO SCH (07:48)
[2017-09-23] MEDS: MULTIVITAMINS, THERA 1 EACH TAB PO SCH (07:49)
[2017-09-23] MEDS: amLODIPine 5 MG TAB PO SCH (07:59)
--- NOTE | 2017-09-23 08:03 | P.PN ---
Progress Note - Text Date: 09/23/2017 Time: 757 The patient is status post, low anterior resection, postoperative day number 3 The patient has no complaints of nausea vomiting or headache. The patient does not complain of any lower extremity numbness or weakness. The epidural is running at 6 mL per hour. VAS 2-10. The epidural will be discontinued today at noon. Pain medicines will be provided to the patient by the service.
[2017-09-23] MEDS ORDERED: NON-FORMULARY DRUG (Omega-3 Fatty Acids/Fish Oil [Fish Oil 1,000 Mg Softgel] 1 CAP) PO SCH (09:00)
[2017-09-23] MEDS ORDERED: NON-FORMULARY DRUG (Omeprazole [Omeprazole] 40 MG) PO SCH (09:00)
[2017-09-23 11:19] LABS: Glucose,Whole Blood 198 mg/dL (75-99)
--- NOTE | 2017-09-23 13:30 | P.PN ---
Subjective Progress Note Date: 09/23/17 Patient is s/p colectomy for sigmoid mass. She reports no passage of flatus. No nausea or vomiting. She is surrounded by family. She is ambulating with physical therapy. She is tolerating clear liquid diet. Objective - Vital Signs Vital signs: Vital Signs Temp 98.4 F 09/23/17 07:18 Pulse 94 09/23/17 07:19 Resp 16 09/23/17 07:19 BP 146/81 09/23/17 07:18 Pulse Ox 94 L 09/23/17 07:18 Intake & Output 09/22/17 09/23/17 09/23/17 18:59 06:59 18:59 Intake Total 480 2149.5 1360 Output Total 1050 650 Balance -570 1499.5 1360 Intake: IV 1000 Sodium Chloride 0.9% 1, 1000 000 ml @ 125 mls/hr IV . Q8H [facility] Rx#:[id number] Intake, IV Titration 2149.5 Amount Bupivacaine (Pf) 0.5% 31. 149.5 3 ml fentaNYL (PF) 1,250 mcg In Sodium Chloride 0. 9% 194 ml @ Per Protocol EPIDURAL .Q0M [facility] Rx#: [id number] Sodium Chloride 0.9% 1, 2000 000 ml @ 125 mls/hr IV . Q8H [facility] Rx#:[id number] Oral 480 360 Output: Urine 1050 650 Uretheral (Villagomez) 650 Other: Voiding Method Indwelling Catheter Indwelling Catheter Indwelling Catheter - Exam GENERAL: Well-developed pleasant in no acute distress. Epidural present. HEENT: No scleral icterus. Extraocular movements grosslyintact. Moist buccal mucosa. NECK: Supple without lymphadenopathy. CHEST: Unlabored respirations. Equal bilateral excursions. CARDIOVASCULAR: Regular rate and rhythm. Distal 2+ pulses. ABDOMEN: Soft. No peritoneal signs. Dressings intact. MUSCULOSKELETAL: No clubbing, cyanosis, or edema. NEURO: No focal or lateralizing signs PSYCH: Appropriate affect. Alert and oriented to person, place, and time. SKIN: Well perfused and good skin turgor. : Villagomez catheter, clear and yellow. - Labs CBC & Chem 7: 09/23/17 06:37 09/23/17 06:37 Labs: Abnormal Lab Results - Last 24 Hours (Table) 09/22/17 09/22/17 09/23/17 Range/Units 17:25 20:37 06:37 Hgb 10.9 L (11.4-16.0) gm/dL Hct 33.7 L (34.0-46.0) % Sodium (137-145) mmol/L Glucose (74-99) mg/dL POC Glucose (mg/dL) 200 H 189 H (75-99) mg/dL Calcium (8.4-10.2) mg/dL Total Protein (6.3-8.2) g/dL Albumin (3.5-5.0) g/dL 09/23/17 09/23/17 09/23/17 Range/Units 06:37 06:57 11:12 Hgb (11.4-16.0) gm/dL Hct (34.0-46.0) % Sodium 132 L (137-145) mmol/L Glucose 157 H (74-99) mg/dL POC Glucose (mg/dL) 166 H 198 H (75-99) mg/dL Calcium 8.2 L (8.4-10.2) mg/dL Total Protein 5.3 L (6.3-8.2) g/dL Albumin 3.0 L (3.5-5.0) g/dL Assessment and Plan (1) Diverticulitis Current Visit: Yes Status: Acute Code(s): K57.92 - DVTRCLI OF INTEST, PART UNSP, W/O PERF OR ABSCESS W/O BLEED SNOMED Code(s): 312684567 (2) S/P colectomy Current Visit: Yes Status: Acute Code(s): Z90.49 - ACQUIRED ABSENCE OF OTHER SPECIFIED PARTS OF DIGESTIVE TRACT SNOMED Code(s): 744362556 Plan: 1. Continue epidural. 2. Continue Entereg. 3. Await bowel function. 4. Continue clear liquid diet.
--- NOTE | 2017-09-23 15:55 | P.PN ---
Subjective Progress Note Date: 09/23/17 This is a 72-year-old female, patient of [facility]. She has a known past medical history of diabetes, hyperlipidemia, hypertension, Mnire's disease, irregular heartbeat in which she takes atenolol and chronic back pain. Patient has been suffering with severe diverticulosis and his diverticulitis. She also had a questionable sigmoid colon mass on a previous computed tomography scan of the abdomen. Patient underwent a lower anterior resection today with Dr. Cardenas. Estimated blood loss 50 mL. No complications reported after surgery. We were consulted for medical management. Patient denies any chest pain or shortness of breath. Denies any nausea or vomiting. Has Villagomez catheter in place. Patient currently also has an epidural is nothing by mouth 09/21/2017 patient's abdominal pain is tolerable. She denies any nausea or vomiting. Denies any chest pain or shortness of breath. Denies passing gas or bowel movement yet. Still is Villagomez catheter and epidural. Blood sugars are been in the 200s likely related to the dextrose in the IV fluids as well as she received dexamethasone in the OR. Continue sliding scale coverage will discontinue the D5 half-normal saline and place her on normal saline at 125 mL an hour. A1c 6.9 On 09/22/2017 patient is alert and oriented 3 in no apparent distress pain is well tolerated there is no fever or chills no nausea or vomiting no chest pain or shortness of breath patient has occasional cough Villagomez catheter is still in causing some discomfort otherwise no complaints at this time. On 09/23/2017 patient is alert and oriented she was seen and examined on the third floor she is complaining of mild abdominal discomfort otherwise no complaints there is no fever or chills no nausea or vomiting no chest pain no shortness of breath no diarrhea, she has not passed any gas or had any bowel movement since surgery. Objective - Vital Signs Vital signs: Vital Signs Temp 98.4 F 09/23/17 07:18 Pulse 94 09/23/17 07:19 Resp 16 09/23/17 07:19 BP 146/81 09/23/17 07:18 Pulse Ox 94 L 09/23/17 07:18 Intake & Output 09/22/17 09/23/17 09/23/17 18:59 06:59 18:59 Intake Total 480 2149.5 1460 Output Total 1678 987 3460 Balance -570 1499.5 -540 Intake: IV 1000 Sodium Chloride 0.9% 1, 1000 000 ml @ 125 mls/hr IV . Q8H [facility] Rx#:[id number] Intake, IV Titration 2149.5 Amount Bupivacaine (Pf) 0.5% 31. 149.5 3 ml fentaNYL (PF) 1,250 mcg In Sodium Chloride 0. 9% 194 ml @ Per Protocol EPIDURAL .Q0M PRN Rx#: [id number] Sodium Chloride 0.9% 1, 2000 000 ml @ 125 mls/hr IV . Q8H [facility] Rx#:[id number] Oral 480 460 Output: Urine 5938 884 5898 Uretheral (Villagomez) 650 2000 Other: Voiding Method Indwelling Catheter Indwelling Catheter Indwelling Catheter - Exam Head normocephalic and atraumatic Neck supple no JVD no goiter Lungs clear to auscultation bilaterally no wheezing or crackles Heart regular rate and rhythm S1-S2, no rub or gallop Abdomen is soft nontender nondistended positive bowel sounds no hepatosplenomegaly. Incision site dressing show some blood and dried blood at the distal aspect Extremities no edema no cyanosis or clubbing Neuro alert and orientated to 3 - Labs CBC & Chem 7: 09/23/17 06:37 09/23/17 06:37 Labs: Abnormal Lab Results - Last 24 Hours (Table) 09/22/17 09/22/17 09/23/17 Range/Units 17:25 20:37 06:37 Hgb 10.9 L (11.4-16.0) gm/dL Hct 33.7 L (34.0-46.0) % Sodium (137-145) mmol/L Glucose (74-99) mg/dL POC Glucose (mg/dL) 200 H 189 H (75-99) mg/dL Calcium (8.4-10.2) mg/dL Total Protein (6.3-8.2) g/dL Albumin (3.5-5.0) g/dL 09/23/17 09/23/17 09/23/17 Range/Units 06:37 06:57 11:12 Hgb (11.4-16.0) gm/dL Hct (34.0-46.0) % Sodium 132 L (137-145) mmol/L Glucose 157 H (74-99) mg/dL POC Glucose (mg/dL) 166 H 198 H (75-99) mg/dL Calcium 8.2 L (8.4-10.2) mg/dL Total Protein 5.3 L (6.3-8.2) g/dL Albumin 3.0 L (3.5-5.0) g/dL Assessment and Plan Plan: 1. Status post lower anterior resection with a known history of diverticulitis and evidence of a sigmoid colon mass: Patient is currently nothing by mouth. Also has epidural placed. Continue with surgical postop orders 2. Essential hypertension: We'll place patient on IV Vasotec as needed for elevated blood pressure. Unable to start oral blood pressure medications at this time due to her nothing by mouth diet. Blood pressures are stable 3. Diabetes mellitus type 2: Place patient on NovoLog sliding scale coverage. Hold oral hypoglycemics for now. Patient having episodes of hyperglycemia as stated above due to dexamethasone and D5W IV fluids. Discontinue the D5W half- normal saline and place patient on normal saline 125 mL an hour. Continue to monitor. Continue sliding scale 4. History of irregular heartbeat, possibly PVCs. Patient denies any history of V. tach or atrial fibrillation. She reports she takes atenolol at home. At this time we'll place her on telemetry monitoring. Atenolol is on hold because she is nothing by mouth 5. Hyperlipidemia 6. History of chronic back pain and herniated disks DVT prophylaxis subcu heparin Continue with current management patient is improving gradually
[2017-09-23 17:05] LABS: Glucose,Whole Blood 192 mg/dL (75-99)
[2017-09-23] MEDS: LATANOPROST 0.005% OPHTH DROPS 2.5 ML BTL RIGHT EYE SCH (20:12)
[2017-09-23 20:40] LABS: Glucose,Whole Blood 242 mg/dL (75-99)
[2017-09-23] MEDS: MORPHINE SULFATE 4 MG/ML SYRINGE IVP PRN (22:35)
[2017-09-24] MEDS: MORPHINE SULFATE 4 MG/ML SYRINGE IVP PRN (06:49)
[2017-09-24 06:52] LABS: Glucose,Whole Blood 169 mg/dL (75-99)
[2017-09-24 07:04] LABS: Basophils % (A) 0 %; Eosinophils # (A) 0.2 k/uL (0-0.7); Eosinophils % (A) 2 %; HCT 30.6 % (34.0-46.0); HGB 10.4 gm/dL (11.4-16.0); Lymphocytes # (A) 1.8 k/uL (1.0-4.8); Lymphocytes % (A) 19 %; MCH 27.8 pg (25.0-35.0); MCHC 34.1 g/dL (31.0-37.0); MCV 81.7 fL (80.0-100.0); Mean Platelet Volume 7.1; Monocytes # (A) 0.6 k/uL (0-1.0); Monocytes % (A) 6 %; Neutrophils # (A) 7.1 k/uL (1.3-7.7); Neutrophils % (A) 72 %; Platelet Count 262 k/uL (150-450); RBC 3.75 m/uL (3.80-5.40); RDW 14.5 % (11.5-15.5); WBC 9.8 k/uL (3.8-10.6)
[2017-09-24 07:07] LABS: ALT 41 U/L (9-52); AST 154 U/L (14-36); Albumin 2.8 g/dL (3.5-5.0); Alkaline Phosphatase 46 U/L (38-126); Anion Gap 11 mmol/L; Blood Urea Nitrogen 5 mg/dL (7-17); Calcium 8.7 mg/dL (8.4-10.2); Carbon Dioxide 23 mmol/L (22-30); Chloride 99 mmol/L (98-107); Glucose 161 mg/dL (74-99); Potassium 3.6 mmol/L (3.5-5.1); Sodium 133 mmol/L (137-145); Total Bilirubin 0.5 mg/dL (0.2-1.3); Total Protein 5.3 g/dL (6.3-8.2)
[2017-09-24] MEDS: INSULIN ASPART 100 UNIT/ML 1 ML 10 ML VIAL SQ SCH ×4 (08:08→20:48)
[2017-09-24] MEDS: ATORVASTATIN 20 MG TAB PO SCH (08:11)
[2017-09-24] MEDS: MULTIVITAMINS, THERA 1 EACH TAB PO SCH (08:11)
[2017-09-24] MEDS: CHOLECALCIFEROL 1,000 UNIT TAB PO SCH (08:11)
[2017-09-24] MEDS: ATENOLOL 25 MG TAB PO SCH ×2 (08:11→20:45)
[2017-09-24] MEDS: amLODIPine 5 MG TAB PO SCH (08:11)
[2017-09-24] MEDS: PANTOPRAZOLE 40 MG/10 ML VIAL IVP SCH (08:11)
[2017-09-24] MEDS: HEPARIN SODIUM,PORCINE 5,000 UNIT/ML 1 ML VIAL SQ SCH ×3 (08:11→23:35)
[2017-09-24] MEDS: TAMSULOSIN 0.4 MG CAP.ER.24H PO SCH (08:11)
[2017-09-24] MEDS: LOSARTAN-HCTZ 50-12.5 MG 1 EACH TAB PO SCH (08:12)
[2017-09-24] MEDS: SODIUM CHLORIDE 0.9% 1,000 ML IV SCH ×3 (08:12→08:31)
[2017-09-24] MEDS: ALVIMOPAN 12 MG CAPSULE PO SCH ×2 (08:12→20:45)
[2017-09-24] MEDS: CALCIUM CARBONATE 500 MG CHEWABLE PO SCH (08:12)
--- NOTE | 2017-09-24 10:06 | P.PN ---
Subjective Progress Note Date: 09/24/17 Pleasant 72-year-old female seen this morning sitting up in a chair states passing gas no stool tolerating diet. No Reports of nausea vomiting. medication effective for pain control. Afebrile. Surgical dressing site dry abdomen soft. Epidural has been removed yesterday urinating no difficulty states has been up ambulating in the thao Postop 20 of September low anterior resection for a sigmoid colon mass in a patient with a history of diverticulitis Objective - Vital Signs Vital signs: Vital Signs Temp 98.8 F 09/24/17 07:30 Pulse 105 H 09/24/17 07:30 Resp 16 09/24/17 08:22 BP 135/72 09/24/17 07:30 Pulse Ox 95 09/24/17 07:30 Intake & Output 09/23/17 09/24/17 09/24/17 18:59 06:59 18:59 Intake Total 1580 1000 480 Output Total 2700 671 Balance -1120 329 480 Intake: IV 1000 1000 Sodium Chloride 0.9% 1, 1000 1000 000 ml @ 50 mls/hr IV . Q20H [facility] Rx#:[id number] Oral 580 480 Output: Urine 2700 670 Uretheral (Villagomez) 2700 Stool 1 Other: Voiding Method Indwelling Catheter Toilet # Voids 600 1 - Exam Physical exam 72-year-old female sitting up on the edge of the bed appears in no acute distress pleasant cooperative oriented 3 Lungs adequate air movement bilaterally on room air no shortness of breath no cough Heart S1-S2 audible regular denying chest pain Abdomen soft nondistended nontender surgical dressing dry passing gas no stool active bowel tones noted tolerating diet no nausea no vomiting urinating no difficulty Extremities no edema noted - Labs CBC & Chem 7: 09/24/17 06:20 09/24/17 06:20 Labs: Abnormal Lab Results - Last 24 Hours (Table) 09/23/17 09/23/17 09/23/17 Range/Units 11:12 16:56 20:17 RBC (3.80-5.40) m/uL Hgb (11.4-16.0) gm/dL Hct (34.0-46.0) % Sodium (137-145) mmol/L BUN (7-17) mg/dL Glucose (74-99) mg/dL POC Glucose (mg/dL) 198 H 192 H 242 H (75-99) mg/dL AST (14-36) U/L Total Protein (6.3-8.2) g/dL Albumin (3.5-5.0) g/dL 09/24/17 09/24/17 09/24/17 Range/Units 06:20 06:20 06:50 RBC 3.75 L (3.80-5.40) m/uL Hgb 10.4 L (11.4-16.0) gm/dL Hct 30.6 L (34.0-46.0) % Sodium 133 L (137-145) mmol/L BUN 5 L (7-17) mg/dL Glucose 161 H (74-99) mg/dL POC Glucose (mg/dL) 169 H (75-99) mg/dL AST 154 H (14-36) U/L Total Protein 5.3 L (6.3-8.2) g/dL Albumin 2.8 L (3.5-5.0) g/dL Assessment and Plan Assessment: Impression History of diverticulitis with severe diverticulosis sigmoid colon mass per previous CAT scan of the abdomen Low anterior resection for a sigmoid colon mass done on September 20 Plan Continue postop surgical care Encourage the use of the incentive spirometer Pain control DVT and GI prophylaxis Increase activity as tolerated Advance diet Anticipate discharge next 24-48 hours The above impression and plan of care have been discussed and directed by signing physician. Sofie Mcmahan nurse practitioner acting as scribe for signing physician.
--- NOTE | 2017-09-24 10:09 | P.PN ---
Subjective Progress Note Date: 09/24/17 This is a 72-year-old female, patient of [facility]. She has a known past medical history of diabetes, hyperlipidemia, hypertension, Mnire's disease, irregular heartbeat in which she takes atenolol and chronic back pain. Patient has been suffering with severe diverticulosis and his diverticulitis. She also had a questionable sigmoid colon mass on a previous computed tomography scan of the abdomen. Patient underwent a lower anterior resection today with Dr. Cardenas. Estimated blood loss 50 mL. No complications reported after surgery. We were consulted for medical management. Patient denies any chest pain or shortness of breath. Denies any nausea or vomiting. Has Villagomez catheter in place. Patient currently also has an epidural is nothing by mouth 09/21/2017 patient's abdominal pain is tolerable. She denies any nausea or vomiting. Denies any chest pain or shortness of breath. Denies passing gas or bowel movement yet. Still is Villagomez catheter and epidural. Blood sugars are been in the 200s likely related to the dextrose in the IV fluids as well as she received dexamethasone in the OR. Continue sliding scale coverage will discontinue the D5 half-normal saline and place her on normal saline at 125 mL an hour. A1c 6.9 09/24/2017 Patient is sitting up in bedside chair. she is passing gas. No bowel movement yet. Epidural removed over the weekend. pain is controlled. Patient denies any chest pain. She does admit to having some heart palpitations. She has evidence of some sinus tachycardia occasionally on telemetry. Patient's home medications which include a beta maximino was recently restarted. There has been improvement in the heart rate. She has sinus tachycardia with ambulating. Patient is eating a full liquid diet. Denies any nausea or vomiting patient did have a low-grade temp of 100.4. White count 9.8. Sodium 133. IV fluids discontinued today Objective - Vital Signs Vital signs: Vital Signs Temp 98.8 F 09/24/17 07:30 Pulse 105 H 09/24/17 07:30 Resp 16 09/24/17 08:22 BP 135/72 09/24/17 07:30 Pulse Ox 95 09/24/17 07:30 Intake & Output 09/23/17 09/24/17 09/24/17 18:59 06:59 18:59 Intake Total 1580 1000 480 Output Total 2700 671 Balance -1120 329 480 Intake: IV 1000 1000 Sodium Chloride 0.9% 1, 1000 1000 000 ml @ 50 mls/hr IV . Q20H [facility] Rx#:[id number] Oral 580 480 Output: Urine 2700 670 Uretheral (Villagomez) 2700 Stool 1 Other: Voiding Method Indwelling Catheter Toilet # Voids 600 1 - Exam Head normocephalic Neck supple Lungs diminished bilaterally Heart regular rate and rhythm S1-S2, no rub or gallop Abdomen is soft diffuse tenderness nondistended positive bowel sounds no hepatosplenomegaly. Incision site dressing show some blood and dried blood at the distal aspect Extremities no edema Neuro alert and orientated to 3 - Labs CBC & Chem 7: 09/24/17 06:20 09/24/17 06:20 Labs: Abnormal Lab Results - Last 24 Hours (Table) 09/23/17 09/23/17 09/23/17 Range/Units 11:12 16:56 20:17 RBC (3.80-5.40) m/uL Hgb (11.4-16.0) gm/dL Hct (34.0-46.0) % Sodium (137-145) mmol/L BUN (7-17) mg/dL Glucose (74-99) mg/dL POC Glucose (mg/dL) 198 H 192 H 242 H (75-99) mg/dL AST (14-36) U/L Total Protein (6.3-8.2) g/dL Albumin (3.5-5.0) g/dL 09/24/17 09/24/17 09/24/17 Range/Units 06:20 06:20 06:50 RBC 3.75 L (3.80-5.40) m/uL Hgb 10.4 L (11.4-16.0) gm/dL Hct 30.6 L (34.0-46.0) % Sodium 133 L (137-145) mmol/L BUN 5 L (7-17) mg/dL Glucose 161 H (74-99) mg/dL POC Glucose (mg/dL) 169 H (75-99) mg/dL AST 154 H (14-36) U/L Total Protein 5.3 L (6.3-8.2) g/dL Albumin 2.8 L (3.5-5.0) g/dL Assessment and Plan Assessment: 1. Status post lower anterior resection with a known history of diverticulitis and evidence of a sigmoid colon mass: Passing gas no bowel movement yet. Pain tolerable. Epidural removed yesterday. Surgery has her on a full liquid diet 2. Essential hypertension: Home BP meds restarted 3. Diabetes mellitus type 2: Continue sliding scale coverage 4. History of irregular heartbeat, possibly PVCs. Patient denies any history of V. tach or atrial fibrillation. Atenolol restarted. Continue with telemetry monitoring. Heart rate showing improvement after restarting the atenolol 5. Hyperlipidemia: We'll hold patient's statin. AST elevated at 154. Possibly related to fluids. Fluids were discontinued. 6. History of chronic back pain and herniated disks 7. Low-grade temp of 100.4 possibly related to atelectasis. Encourage incentive spirometry use. No evidence of any acute infection. White count 9.8 DVT prophylaxis subcu heparin I performed an examination of the patient and discussed their management with the physician Senior Technical Recruiter. I have reviewed the Physician Senior Technical Recruiter's notes and agree with the documented findings and plan of care
[2017-09-24 10:59] LABS: Glucose,Whole Blood 203 mg/dL (75-99)
[2017-09-24] MEDS: HYDROcodone/APAP 5-325MG 1 EACH TAB PO PRN ×2 (13:48→22:11)
[2017-09-24] MEDS ORDERED: Magnesium Replacement Protocol 1 EACH MISC MISCELLANE PRN (15:34)
--- NOTE | 2017-09-24 15:42 | P.PN ---
Subjective Mrs. Bird is a pleasant 72-year-old female past medical history significant for coronary artery disease with 100% chronic total occlusion of RCA , diabetes mellitus, gastroesophageal reflux disease, dyslipidemia, hypertension and former tobacco use. She follows with Dr. Laura in the office. We have been asked to see her in consultation secondary to tachycardia. She is status post lower anterior bowel resection with Dr. Cardenas 09/20. She saw Dr. Laura in the office prior to surgery and was deemed an appropriate risk. Her heart rates have been elevated over the weekend with highest up to 122. Telemetry tracings reveal this was a sinus tachycardia. There was evidence of a 6 beat run of non-sustained ventricular tachycardia noted 09/22 at 1100. She is unable to recall having any symptoms during that particular episode. Nursing staff also states telemetry called with another 8- beat run this morning but those strips are unavailable to me at this time. Her atenolol was resumed Sunday night. She has also had a low grade fever with temperature 104F. She is seen and examined sitting up in the chair in no acute distress. She denies having any symptoms of chest pain, dizziness, palpitations , PND or orhopnea. She complains of feeling bloated within her abdomen and seems to get short of breath with exertion. Most recent echocardiogram performed 11/2015 in the office reveals preserved left ventricular systolic function with ejection fraction 55%, mild MR and mildly calcified aortic valve with trace regurgitation. Most recent Lexiscan stress test 06/2107 reveals normal perfusion study. Laboratory data reviewed, hemoglobin 10.4, platelets 262, sodium 133, potassium 3.6, magnesium 1.3, TSH 1.07. Current cardiac medications include Norvasc 5 mg daily, losartan/ hydrochlorothiazide 100/25 mg daily, atorvastatin 20 mg daily, atenolol 25 mg twice a day and aspirin 325 mg daily. Objective - Vital Signs Vital signs: Vital Signs Temp 98.9 F 09/24/17 14:15 Pulse 91 09/24/17 14:15 Resp 16 09/24/17 14:15 BP 109/64 09/24/17 14:15 Pulse Ox 96 09/24/17 14:15 Intake & Output 09/23/17 09/24/17 09/24/17 18:59 06:59 18:59 Intake Total 1580 1000 700 Output Total 2700 671 Balance -1120 329 700 Intake: IV 1000 1000 Sodium Chloride 0.9% 1, 1000 1000 000 ml @ 50 mls/hr IV . Q20H [facility] Rx#:[id number] Oral 580 700 Output: Urine 2700 670 Uretheral (Villagomez) 2700 Stool 1 Other: Voiding Method Indwelling Catheter Toilet # Voids 600 1 - Exam GENERAL: Well-appearing, well-nourished and in no acute distress. NECK: Supple without JVD or thyromegaly. LUNGS: Breath sounds clear to auscultation bilaterally. Respiration equal and unlabored. No wheezes, rales or rhonchi. HEART: Regular rate and rhythm without murmurs, rubs or gallops. S1 and S2 heard. EXTREMITIES: Normal range of motion, no edema. No clubbing or cyanosis. Peripheral pulses intact and strong. - Labs CBC & Chem 7: 09/26/17 07:09 09/26/17 07:09 Labs: Abnormal Lab Results - Last 24 Hours (Table) 09/23/17 09/23/17 09/24/17 Range/Units 16:56 20:17 06:20 RBC 3.75 L (3.80-5.40) m/uL Hgb 10.4 L (11.4-16.0) gm/dL Hct 30.6 L (34.0-46.0) % Sodium (137-145) mmol/L BUN (7-17) mg/dL Glucose (74-99) mg/dL POC Glucose (mg/dL) 192 H 242 H (75-99) mg/dL Magnesium (1.6-2.3) mg/dL AST (14-36) U/L Total Protein (6.3-8.2) g/dL Albumin (3.5-5.0) g/dL 09/24/17 09/24/17 09/24/17 Range/Units 06:20 06:20 06:50 RBC (3.80-5.40) m/uL Hgb (11.4-16.0) gm/dL Hct (34.0-46.0) % Sodium 133 L (137-145) mmol/L BUN 5 L (7-17) mg/dL Glucose 161 H (74-99) mg/dL POC Glucose (mg/dL) 169 H (75-99) mg/dL Magnesium 1.3 L (1.6-2.3) mg/dL AST 154 H (14-36) U/L Total Protein 5.3 L (6.3-8.2) g/dL Albumin 2.8 L (3.5-5.0) g/dL 09/24/17 Range/Units 10:58 RBC (3.80-5.40) m/uL Hgb (11.4-16.0) gm/dL Hct (34.0-46.0) % Sodium (137-145) mmol/L BUN (7-17) mg/dL Glucose (74-99) mg/dL POC Glucose (mg/dL) 203 H (75-99) mg/dL Magnesium (1.6-2.3) mg/dL AST (14-36) U/L Total Protein (6.3-8.2) g/dL Albumin (3.5-5.0) g/dL Assessment and Plan Assessment: ASSESSMENT 1. s/p bowel resection 2. Non-sustained ventricular tachycardia 3. Hypomagnesemia 4. History of coronary artery disease, 100% chronic total occlusion of RCA 5. Hypertension 6. Dyslipidemia 7. Diabetes mellitus 8. Febrile illness PLAN Obtain 2-D echocardiogram and Doppler study to assess cardiac structure and function. Continue with atenolol 25 mg BID, amlodipine 5 mg daily and losartan/hctz 100/ 50 daily. Resume aspirin and atorvastatin. Replace magnesium per protocol. Continue to monitor on telemetry. Further recommendations to follow. Thank you kindly for allowing to participate in her care during this hospitalization. Nurse Practitioner note has been reviewed, I agree with a documented findings and plan of care. Patient was seen and examined.
[2017-09-24] MEDS: MAGNESIUM SULFATE-D5W PMX 1 GM in DEXTROSE/WATER 1 100ML.BAG IVPB SCH ×3 (15:52→18:24)
[2017-09-24 17:19] LABS: Glucose,Whole Blood 190 mg/dL (75-99)
--- NOTE | 2017-09-24 18:48 | ECHOF ---
Referral Reason:Arrhythmia MEASUREMENTS -------- HEIGHT: 160.0 cm WEIGHT: 72.6 kg BP: 109/64 RVIDd: 3.5 cm (< 3.3) IVSd: 1.3 cm (0.6 - 1.1) LVIDd: 5.1 cm (3.9 - 5.3) LVPWd: 1.4 cm (0.6 - 1.1) IVSs: 1.9 cm LVIDs: 3.4 cm LVPWs: 1.9 cm LA Diam: 3.4 cm (2.7 - 3.8) LAESV Index (A-L): 29.47 ml/m Ao Diam: 3.4 cm (2.0 - 3.7) AV Cusp: 1.7 cm (1.5 - 2.6) MV EXCURSION: 15.965 mm (> 18.000) MV EF SLOPE: 115 mm/s (70 - 150) EPSS: 0.8 cm MV E Pool: 1.18 m/s MV DecT: 99 ms MV A Pool: 0.70 m/s MV E/A Ratio: 1.68 RAP: 5.00 mmHg RVSP: 36.16 mmHg FINDINGS -------- This was a technically adequate study. The left ventricular size is normal. There is moderate concentric left ventricular hypertrophy. O verall left ventricular systolic function is moderately impaired with, an EF between 35 - 40 %. Mid anterior LV wall motion is hypokinetic. Apical anterior LV wall motion is hypokinetic. Apical lateral LV wall motion is hypokinetic. Apical inferior LV wall motion is hypokinetic. Apical se ptum LV wall motion is hypokinetic. The right ventricle is mildly enlarged. LA is midly dilated 29-33ml/m2. The right atrium is normal in size. There is mild aortic valve sclerosis. Mild tricuspid regurgitation present. There is mild pulmonary hypertension. The right ventricular systolic pressure, as measured by Doppler, is 36.16mmHg. Trace/mild (physiologic) pulmonic regurgitation. The aortic root size is normal. Normal inferior vena cava with normal inspiratory collapse consistent with estimated right atrial pre ssure of 5 mmHg. There is no pericardial effusion. CONCLUSIONS -------- 1. This was a technically adequate study. 2. The left ventricular size is normal. 3. There is moderate concentric left ventricular hypertrophy. 4. Overall left ventricular systolic function is moderately impaired with, an EF between 35 - 40 %. 5. Mid anterior LV wall motion is hypokinetic. 6. Apical anterior LV wall motion is hypokinetic. 7. Apical lateral LV wall motion is hypokinetic. 8. Apical inferior LV wall motion is hypokinetic. 9. Apical septum LV wall motion is hypokinetic. 10. The right ventricle is mildly enlarged. 11. LA is midly dilated 29-33ml/m2. 12. The right atrium is normal in size. 13. There is mild aortic valve sclerosis. 14. Mild tricuspid regurgitation present. 15. There is mild pulmonary hypertension. 16. The right ventricular systolic pressure, as measured by Doppler, is 36.16mmHg. 17. Trace/mild (physiologic) pulmonic regurgitation. 18. The aortic root size is normal. 19. Normal inferior vena cava with normal inspiratory collapse consistent with estimated right atrial pressure of 5 mmHg. 20. There is no pericardial effusion. PROFESSOR OF [employer]: Lois Morfin RDCS
[2017-09-24 20:04] LABS: Glucose,Whole Blood 196 mg/dL (75-99)
[2017-09-24] MEDS: LATANOPROST 0.005% OPHTH DROPS 2.5 ML BTL RIGHT EYE SCH (20:45)
[2017-09-24] MEDS ORDERED: IPRATROPIUM-ALBUTEROL 3 ML NEB INHALATION PRN (23:44)
--- NOTE | 2017-09-25 00:13 | XR ---
EXAMINATION TYPE: XR chest 1V portable DATE OF EXAM: 09/25/2017 COMPARISON: NONE HISTORY: Short of breath TECHNIQUE: Single frontal view of the chest is obtained. FINDINGS: Portable upright view of the chest shows coarse pulmonary interstitial markings. There is no pulmonary consolidation. I see no definite pleural effusion. There are old right-sided healed rib fracture. There are chest leads. IMPRESSION: Mild pulmonary interstitial edema. This could be mild heart failure..
[2017-09-25 07:25] LABS: Glucose,Whole Blood 173 mg/dL (75-99)
[2017-09-25] MEDS: INSULIN ASPART 100 UNIT/ML 1 ML 10 ML VIAL SQ SCH ×4 (07:41→21:31)
[2017-09-25 09:02] LABS: Basophils % (A) 0 %; Eosinophils # (A) 0.1 k/uL (0-0.7); Eosinophils % (A) 1 %; HCT 30.4 % (34.0-46.0); HGB 10.4 gm/dL (11.4-16.0); Lymphocytes # (A) 1.5 k/uL (1.0-4.8); Lymphocytes % (A) 15 %; MCH 27.9 pg (25.0-35.0); MCV 81.9 fL (80.0-100.0); Mean Platelet Volume 7.1; Monocytes # (A) 0.6 k/uL (0-1.0); Monocytes % (A) 6 %; Neutrophils # (A) 7.8 k/uL (1.3-7.7); Neutrophils % (A) 77 %; Platelet Count 301 k/uL (150-450); RBC 3.72 m/uL (3.80-5.40); RDW 14.8 % (11.5-15.5); WBC 10.1 k/uL (3.8-10.6)
[2017-09-25 09:06] LABS: ALT 46 U/L (9-52); AST 131 U/L (14-36); Albumin 2.9 g/dL (3.5-5.0); Alkaline Phosphatase 52 U/L (38-126); Anion Gap 12 mmol/L; Blood Urea Nitrogen 5 mg/dL (7-17); Calcium 8.5 mg/dL (8.4-10.2); Carbon Dioxide 23 mmol/L (22-30); Chloride 93 mmol/L (98-107); Glucose 159 mg/dL (74-99); Potassium 3.3 mmol/L (3.5-5.1); Sodium 128 mmol/L (137-145); Total Bilirubin 0.6 mg/dL (0.2-1.3); Total Protein 5.3 g/dL (6.3-8.2)
[2017-09-25] MEDS: IPRATROPIUM-ALBUTEROL 3 ML NEB INHALATION SCH ×4 (09:12→20:16)
[2017-09-25] MEDS: TAMSULOSIN 0.4 MG CAP.ER.24H PO SCH (09:23)
[2017-09-25] MEDS: CHOLECALCIFEROL 1,000 UNIT TAB PO SCH (09:23)
[2017-09-25] MEDS: ASPIRIN 325 MG TAB PO SCH (09:23)
[2017-09-25] MEDS: MULTIVITAMINS, THERA 1 EACH TAB PO SCH (09:23)
[2017-09-25] MEDS: amLODIPine 5 MG TAB PO SCH (09:24)
[2017-09-25] MEDS: PANTOPRAZOLE 40 MG TABLET PO SCH (09:24)
[2017-09-25] MEDS: ATORVASTATIN 20 MG TAB PO SCH (09:24)
[2017-09-25] MEDS: HEPARIN SODIUM,PORCINE 5,000 UNIT/ML 1 ML VIAL SQ SCH ×3 (09:24→23:45)
[2017-09-25] MEDS: LOSARTAN-HCTZ 50-12.5 MG 1 EACH TAB PO SCH (09:24)
[2017-09-25] MEDS: ALVIMOPAN 12 MG CAPSULE PO SCH ×2 (09:24→21:32)
[2017-09-25] MEDS: ATENOLOL 25 MG TAB PO SCH (09:24)
[2017-09-25] MEDS: CALCIUM CARBONATE 500 MG CHEWABLE PO SCH (09:24)
[2017-09-25] MEDS ORDERED: FUROSEMIDE 10 MG/ML 4 ML VIAL IV SCH (09:45)
--- NOTE | 2017-09-25 10:30 | P.PN ---
Subjective Progress Note Date: 09/25/17 72-year-old sitting up on the edge of the bed. States belching and passing gas but no bowel movement had a bowel movement yesterday. Did note the patient had an episode this morning heart rate went up to 150 briefly with activity currently in the 80s denied any dizziness lightheadedness chest pain or shortness of breath. Did note the sodium is down 128, potassium 3.3 September 04 0.7 this morning echocardiogram done yesterday to report reviewed left ventricular systolic function moderately impaired with an EF between 35 and 40%. Mild pulmonary hypertension. Chest x-ray this morning mild pulmonary interstitial edema Objective - Vital Signs Vital signs: Vital Signs Temp 98.4 F 09/25/17 07:00 Pulse 88 09/25/17 09:22 Resp 16 09/25/17 07:00 BP 124/70 09/25/17 07:00 Pulse Ox 95 09/25/17 07:00 Intake & Output 09/24/17 09/25/17 09/25/17 18:59 06:59 18:59 Intake Total 820 Output Total 800 Balance 820 -800 Intake: Oral 820 Output: Urine 800 Other: Voiding Method Toilet # Voids 1 2 # Bowel Movements 1 - Exam Physical exam 72-year-old female sitting up on the edge of the bed states has been up ambulating in the hallway no dizziness lightheadedness no shortness of breath no chest pain Heart S1 S2 audible regular monitor currently sinus rhythm rate in the 80s denies chest pain Lungs posterior diminished at the bases otherwise adequate air movement bilaterally on 2 L sats are 95% Abdomen surgical dressing site dry a few hypoactive bowel tones states passing gas no stool urinating no difficulty tolerating diet states does feel bloated after eating" no nausea vomiting Extremities no edema noted bilaterally - Labs CBC & Chem 7: 09/25/17 07:22 09/25/17 07:22 Labs: Abnormal Lab Results - Last 24 Hours (Table) 09/24/17 09/24/17 09/24/17 Range/Units 06:20 10:58 17:12 RBC (3.80-5.40) m/uL Hgb (11.4-16.0) gm/dL Hct (34.0-46.0) % Neutrophils # (1.3-7.7) k/uL Sodium (137-145) mmol/L Potassium (3.5-5.1) mmol/L Chloride (98-107) mmol/L BUN (7-17) mg/dL Glucose (74-99) mg/dL POC Glucose (mg/dL) 203 H 190 H (75-99) mg/dL Magnesium 1.3 L (1.6-2.3) mg/dL AST (14-36) U/L Total Protein (6.3-8.2) g/dL Albumin (3.5-5.0) g/dL 09/24/17 09/25/17 09/25/17 Range/Units 20:02 07:21 07:22 RBC 3.72 L (3.80-5.40) m/uL Hgb 10.4 L (11.4-16.0) gm/dL Hct 30.4 L (34.0-46.0) % Neutrophils # 7.8 H (1.3-7.7) k/uL Sodium (137-145) mmol/L Potassium (3.5-5.1) mmol/L Chloride (98-107) mmol/L BUN (7-17) mg/dL Glucose (74-99) mg/dL POC Glucose (mg/dL) 196 H 173 H (75-99) mg/dL Magnesium (1.6-2.3) mg/dL AST (14-36) U/L Total Protein (6.3-8.2) g/dL Albumin (3.5-5.0) g/dL 09/25/17 Range/Units 07:22 RBC (3.80-5.40) m/uL Hgb (11.4-16.0) gm/dL Hct (34.0-46.0) % Neutrophils # (1.3-7.7) k/uL Sodium 128 L (137-145) mmol/L Potassium 3.3 L (3.5-5.1) mmol/L Chloride 93 L (98-107) mmol/L BUN 5 L (7-17) mg/dL Glucose 159 H (74-99) mg/dL POC Glucose (mg/dL) (75-99) mg/dL Magnesium (1.6-2.3) mg/dL AST 131 H (14-36) U/L Total Protein 5.3 L (6.3-8.2) g/dL Albumin 2.9 L (3.5-5.0) g/dL Assessment and Plan Assessment: Impression History of diverticulitis with severe diverticulosis sigmoid colon mass per previous CAT scan of the abdomen Low anterior resection for a sigmoid colon mass done on September 20 Electrolyte abnormality hypokalemia, hyponatremia suspect due to diuretics Episodes of nonsustained ventricular tachycardia Acute on chronic systolic heart failure EF per echocardiogram between 35 and 40% Plan Continue postop surgical care Encourage the use of the incentive spirometer Pain control DVT and GI prophylaxis Increase activity as tolerated Advance diet Defer to medicine to address medical issues Potassium to be replaced Would recommend holding hydrochlorothiazide and monitor sodium Continue recommendations cardiology service The above impression and plan of care have been discussed and directed by signing physician. Sofie Mcmahan nurse practitioner acting as scribe for signing physician.
[2017-09-25] MEDS: POTASSIUM CHLORIDE ER 20 MEQ TAB.ER PO SCH ×2 (10:58→12:39)
[2017-09-25] MEDS ORDERED: FUROSEMIDE 10 MG/ML 4 ML VIAL IV STA (10:58)
[2017-09-25] MEDS: BENZOCAINE/MENTHOL LOZENG 1 EACH LOZENGE MUCOUS MEM PRN ×4 (10:58→23:44)
--- NOTE | 2017-09-25 11:07 | P.PN ---
Subjective Progress Note Date: 09/25/17 This is a 72-year-old female, patient of [facility]. She has a known past medical history of diabetes, hyperlipidemia, hypertension, Mnire's disease, irregular heartbeat in which she takes atenolol and chronic back pain. Patient has been suffering with severe diverticulosis and his diverticulitis. She also had a questionable sigmoid colon mass on a previous computed tomography scan of the abdomen. Patient underwent a lower anterior resection today with Dr. Cardenas. Estimated blood loss 50 mL. No complications reported after surgery. We were consulted for medical management. Patient denies any chest pain or shortness of breath. Denies any nausea or vomiting. Has Villagomez catheter in place. Patient currently also has an epidural is nothing by mouth 09/21/2017 patient's abdominal pain is tolerable. She denies any nausea or vomiting. Denies any chest pain or shortness of breath. Denies passing gas or bowel movement yet. Still is Villagomez catheter and epidural. Blood sugars are been in the 200s likely related to the dextrose in the IV fluids as well as she received dexamethasone in the OR. Continue sliding scale coverage will discontinue the D5 half-normal saline and place her on normal saline at 125 mL an hour. A1c 6.9 09/24/2017 Patient is sitting up in bedside chair. she is passing gas. No bowel movement yet. Epidural removed over the weekend. pain is controlled. Patient denies any chest pain. She does admit to having some heart palpitations. She has evidence of some sinus tachycardia occasionally on telemetry. Patient's home medications which include a beta maximino was recently restarted. There has been improvement in the heart rate. She has sinus tachycardia with ambulating. Patient is eating a full liquid diet. Denies any nausea or vomiting patient did have a low-grade temp of 100.4. White count 9.8. Sodium 133. IV fluids discontinued today 09/25/2017 patient had bowel movement yesterday she is still passing gas. She' s currently on a full liquid diet. She had a run of V. tach yesterday. This was likely related to her low magnesium level. She was seen evaluated by cardiology. Magnesium has been replaced. Magnesium level is now up 2. Patient also had evidence of fluid overload on chest x-ray cardiology did add IV Lasix. Case has been discussed with both surgical service and cardiology nurse practitioner's. Patient sodium level has dropped to 128. At this time we will be discontinuing the hydrochlorothiazide component of her Hyzaar and cardiology will be giving her a one-time dose of Lasix only for the fluid overload. Patient did complain of some mild burning with urination. Objective - Vital Signs Vital signs: Vital Signs Temp 98.4 F 09/25/17 07:00 Pulse 88 09/25/17 09:22 Resp 16 09/25/17 07:00 BP 124/70 09/25/17 07:00 Pulse Ox 95 09/25/17 07:00 Intake & Output 09/24/17 09/25/17 09/25/17 18:59 06:59 18:59 Intake Total 820 Output Total 800 Balance 820 -800 Intake: Oral 820 Output: Urine 800 Other: Voiding Method Toilet # Voids 1 2 # Bowel Movements 1 - Exam Head normocephalic Neck supple Lungs crackles at the bases bilaterally Heart regular rate and rhythm S1-S2, no rub or gallop Abdomen is soft diffuse tenderness nondistended positive bowel sounds no hepatosplenomegaly. Incision site dressing show some blood and dried blood at the distal aspect also on the distal portion of the dressing there is some serous drainage Extremities no edema Neuro alert and orientated to 3 - Labs CBC & Chem 7: 09/25/17 07:22 09/25/17 07:22 Labs: Abnormal Lab Results - Last 24 Hours (Table) 09/24/17 09/24/17 09/24/17 Range/Units 10:58 17:12 20:02 RBC (3.80-5.40) m/uL Hgb (11.4-16.0) gm/dL Hct (34.0-46.0) % Neutrophils # (1.3-7.7) k/uL Sodium (137-145) mmol/L Potassium (3.5-5.1) mmol/L Chloride (98-107) mmol/L BUN (7-17) mg/dL Glucose (74-99) mg/dL POC Glucose (mg/dL) 203 H 190 H 196 H (75-99) mg/dL AST (14-36) U/L Total Protein (6.3-8.2) g/dL Albumin (3.5-5.0) g/dL 09/25/17 09/25/17 09/25/17 Range/Units 07:21 07:22 07:22 RBC 3.72 L (3.80-5.40) m/uL Hgb 10.4 L (11.4-16.0) gm/dL Hct 30.4 L (34.0-46.0) % Neutrophils # 7.8 H (1.3-7.7) k/uL Sodium 128 L (137-145) mmol/L Potassium 3.3 L (3.5-5.1) mmol/L Chloride 93 L (98-107) mmol/L BUN 5 L (7-17) mg/dL Glucose 159 H (74-99) mg/dL POC Glucose (mg/dL) 173 H (75-99) mg/dL AST 131 H (14-36) U/L Total Protein 5.3 L (6.3-8.2) g/dL Albumin 2.9 L (3.5-5.0) g/dL Assessment and Plan Assessment: 1. Status post lower anterior resection with a known history of diverticulitis and evidence of a sigmoid colon mass: Patient having bowel movement. Tolerating full liquid diet. Pain is controlled 2. Essential hypertension: Home BP meds restarted 3. Diabetes mellitus type 2: Continue sliding scale coverage 4. History of irregular heartbeat, possibly PVCs. Patient denies any history of V. tach or atrial fibrillation. Atenolol restarted. Continue with telemetry monitoring. Heart rate showing improvement after restarting the atenolol 5. Hyperlipidemia: AST trending down. Cardiology did restart statin 6. History of chronic back pain and herniated disks 7. Patient continues to have a low-grade temp. She is complaining of burning with urination. Urinalysis will be ordered with culture. 8. Acute systolic CHF exacerbation: with x-ray showing mild pulmonary interstitial edema and elevated BNP. Cardiology will be given 1 dose of IV Lasix. Echo shows an EF of 35-40%. There was evidence of wall motion abnormality and mild pulmonary hypertension. Cardiology following 9. One episode of nonsustained ventricle tachycardia likely related to hypo- magnesium. Continue with telemetry monitoring. Magnesium has been replaced. 10. Hypokalemia patient receiving potassium supplement 11. Hyponatremia: Sodium level is down to 128. Discontinue hydrochlorothiazide and Lasix will be decreased to just one-time dose of 40 mg. Case discussed with cardiology and surgical service. DVT prophylaxis subcu heparin I performed an examination of the patient and discussed their management with the physician Track Supervisor. I have reviewed the Physician Track Supervisor's notes and agree with the documented findings and plan of care
[2017-09-25 11:52] LABS: Glucose,Whole Blood 219 mg/dL (75-99)
[2017-09-25 12:48] LABS: Appearance,Urine Clear (Clear); Bilirubin,Urine Negative (Negative); Blood,Urine Negative (Negative); Color,Urine Colorless; Glucose,Urine (UA) Negative (Negative); Ketones,Urine Negative (Negative); Leukocyte Esterase,Urine Negative (Negative); Nitrite,Urine Negative (Negative); PH, Urine 6.5 (5.0-8.0); Protein,Urine Negative (Negative); Specific Gravity,Urine 1.004 (1.001-1.035); Urobilinogen,Urine <2.0 mg/dL (<2.0)
[2017-09-25] MEDS ORDERED: ATENOLOL 25 MG TAB PO STA (14:13)
--- NOTE | 2017-09-25 14:20 | P.PN ---
Subjective Mrs. Bird is a pleasant 72-year-old female past medical history significant for coronary artery disease with 100% chronic total occlusion of RCA , diabetes mellitus, gastroesophageal reflux disease, dyslipidemia, hypertension and former tobacco use. She follows with Dr. Laura in the office. We have been asked to see her in consultation secondary to tachycardia. She is status post lower anterior bowel resection with Dr. Cardenas 09/20. She saw Dr. Laura in the office prior to surgery and was deemed an appropriate risk. Her heart rates have been elevated over the weekend with highest up to 122. Telemetry tracings reveal this was a sinus tachycardia. There was evidence of a 6 beat run of non-sustained ventricular tachycardia noted 09/22 at 1100. She is unable to recall having any symptoms during that particular episode. Nursing staff also states telemetry called with another 8- beat run this morning but those strips are unavailable to me at this time. Her atenolol was resumed Sunday night. She has also had a low grade fever with temperature 104F. She is seen and examined sitting up in the chair in no acute distress. She denies having any symptoms of chest pain, dizziness, palpitations , PND or orhopnea. She complains of abdominal bloating with shortness of breath with exertion. Most recent echocardiogram performed 11/2015 in the office reveals preserved left ventricular systolic function with ejection fraction 55%, mild MR and mildly calcified aortic valve with trace regurgitation. Laboratory data reviewed, hemoglobin 10.4, platelets 262, sodium 133, potassium 3.6, magnesium 1.3, TSH 1.07. Current cardiac medications include Norvasc 5 mg daily, losartan/ hydrochlorothiazide 100/25 mg daily, atorvastatin 20 mg daily, atenolol 25 mg twice a day and aspirin 325 mg daily. 09/25/2017 Mrs. Bird is seen and examined sitting up in bed in no acute distress. She states she has had a bowel movement last night. She continues to complain of bloated feeling with shortness of breath with exertion. She denies chest pain, palpitations, dizziness or nausea/vomiting. Echocardiogram was ordered last night revealed decreased systolic function with EF 35-40%, mid-anterior and apical hypokinesia, mildly dilated LA, mild aortic valve sclerosis, mild TR, mild pulmonary hypertension with RVSP 36.16 mmHg. This is a significant change. Chest xray obtained last night reveals mild pulmonary interstitial edema, possibly mild heart failure. Pro-BNP 6080, sodium 128, potassium 3.3, magnesium 1.7, creatinine 0.54. She again had a fever last night of 100.2F. Blood pressure 124/70 heart rate has been fluctuating between 80-115 with increases noted with exertion. Telemetry tracings show no VT or other arrhythmia. Objective - Vital Signs Vital signs: Vital Signs Temp 98.4 F 09/25/17 07:00 Pulse 88 09/25/17 12:50 Resp 16 09/25/17 07:00 BP 124/70 09/25/17 07:00 Pulse Ox 95 09/25/17 07:00 Intake & Output 09/24/17 09/25/17 09/25/17 18:59 06:59 18:59 Intake Total 820 400 Output Total 800 Balance 820 -800 400 Intake: IV 400 Sodium Chloride 0.9% 1, 400 000 ml @ 50 mls/hr IV . Q20H [facility] Rx#:[id number] Oral 820 Output: Urine 800 Other: Voiding Method Toilet # Voids 1 2 3 # Bowel Movements 1 - Exam GENERAL: Well-appearing, well-nourished and in no acute distress. NECK: Supple without JVD or thyromegaly. LUNGS: Breath sounds clear to auscultation bilaterally. Respiration equal and unlabored. No wheezes, rales or rhonchi. HEART: Regular rate and rhythm without murmurs, rubs or gallops. S1 and S2 heard. EXTREMITIES: Normal range of motion, no edema. No clubbing or cyanosis. Peripheral pulses intact and strong. - Labs CBC & Chem 7: 09/25/17 07:22 09/25/17 07:22 Labs: Abnormal Lab Results - Last 24 Hours (Table) 09/24/17 09/24/17 09/25/17 Range/Units 17:12 20:02 07:21 RBC (3.80-5.40) m/uL Hgb (11.4-16.0) gm/dL Hct (34.0-46.0) % Neutrophils # (1.3-7.7) k/uL Sodium (137-145) mmol/L Potassium (3.5-5.1) mmol/L Chloride (98-107) mmol/L BUN (7-17) mg/dL Glucose (74-99) mg/dL POC Glucose (mg/dL) 190 H 196 H 173 H (75-99) mg/dL AST (14-36) U/L Total Protein (6.3-8.2) g/dL Albumin (3.5-5.0) g/dL 09/25/17 09/25/17 09/25/17 Range/Units 07:22 07:22 11:48 RBC 3.72 L (3.80-5.40) m/uL Hgb 10.4 L (11.4-16.0) gm/dL Hct 30.4 L (34.0-46.0) % Neutrophils # 7.8 H (1.3-7.7) k/uL Sodium 128 L (137-145) mmol/L Potassium 3.3 L (3.5-5.1) mmol/L Chloride 93 L (98-107) mmol/L BUN 5 L (7-17) mg/dL Glucose 159 H (74-99) mg/dL POC Glucose (mg/dL) 219 H (75-99) mg/dL AST 131 H (14-36) U/L Total Protein 5.3 L (6.3-8.2) g/dL Albumin 2.9 L (3.5-5.0) g/dL Assessment and Plan Assessment: ASSESSMENT 1. s/p bowel resection 2. Non-sustained ventricular tachycardia 3. Hypomagnesemia 4. History of coronary artery disease, 100% chronic total occlusion of RCA 5. Hypertension 6. Dyslipidemia 7. Diabetes mellitus 8. Febrile illness 9. Hyponatremia 10. Hypokalmia, replaced pe primary 11. New onset systolic heart failure, EF 35-40%. Ischemic cardiomyopathy. PLAN Discontinue amlodipine and hydrochlorothiazide. Increase atenolol to 50 mg BID with additional dose of 25 mg now. Give IV lasix 40 mg x1 now. Continue to follow electrolytes and kidney function. Potassium has been replaced. Daily weights. Strict intake and output. Nurse Practitioner note has been reviewed, I agree with a documented findings and plan of care. Patient was seen and examined.
[2017-09-25 17:09] LABS: Glucose,Whole Blood 202 mg/dL (75-99)
[2017-09-25 20:12] LABS: Glucose,Whole Blood 204 mg/dL (75-99)
[2017-09-25] MEDS: LATANOPROST 0.005% OPHTH DROPS 2.5 ML BTL RIGHT EYE SCH (21:33)
[2017-09-25] MEDS: ATENOLOL 50 MG TAB PO SCH (21:33)
[2017-09-26] MEDS: ONDANSETRON 4 MG/2 ML VIAL IVP PRN (00:15)
[2017-09-26] MEDS ORDERED: FUROSEMIDE 10 MG/ML 4 ML VIAL IV STA ×2 (00:22→09:05)
[2017-09-26 00:59] LABS: Basophils % (A) 0 %; Eosinophils # (A) 0.1 k/uL (0-0.7); Eosinophils % (A) 1 %; HCT 31.5 % (34.0-46.0); HGB 10.5 gm/dL (11.4-16.0); Lymphocytes # (A) 1.3 k/uL (1.0-4.8); Lymphocytes % (A) 10 %; MCH 27.1 pg (25.0-35.0); MCHC 33.2 g/dL (31.0-37.0); MCV 81.8 fL (80.0-100.0); Mean Platelet Volume 6.7; Monocytes # (A) 0.6 k/uL (0-1.0); Monocytes % (A) 5 %; Neutrophils # (A) 10.7 k/uL (1.3-7.7); Neutrophils % (A) 83 %; Platelet Count 357 k/uL (150-450); RBC 3.85 m/uL (3.80-5.40); RDW 14.5 % (11.5-15.5); WBC 12.9 k/uL (3.8-10.6)
[2017-09-26 01:15] LABS: Anion Gap 13 mmol/L; Blood Urea Nitrogen 7 mg/dL (7-17); Calcium 8.7 mg/dL (8.4-10.2); Carbon Dioxide 22 mmol/L (22-30); Chloride 90 mmol/L (98-107); Glucose 195 mg/dL (74-99); Potassium 3.5 mmol/L (3.5-5.1); Sodium 125 mmol/L (137-145)
[2017-09-26 06:51] LABS: Glucose,Whole Blood 195 mg/dL (75-99)
[2017-09-26] MEDS: IPRATROPIUM-ALBUTEROL 3 ML NEB INHALATION SCH ×4 (07:15→20:28)
[2017-09-26 07:47] LABS: Basophils % (A) 0 %; Eosinophils # (A) 0.1 k/uL (0-0.7); Eosinophils % (A) 0 %; HCT 32.3 % (34.0-46.0); HGB 10.7 gm/dL (11.4-16.0); Lymphocytes % (A) 15 %; MCHC 33.1 g/dL (31.0-37.0); MCV 81.6 fL (80.0-100.0); Mean Platelet Volume 7.4; Monocytes # (A) 0.7 k/uL (0-1.0); Monocytes % (A) 5 %; Neutrophils # (A) 10.9 k/uL (1.3-7.7); Neutrophils % (A) 79 %; Platelet Count 374 k/uL (150-450); RBC 3.96 m/uL (3.80-5.40); RDW 14.8 % (11.5-15.5); WBC 13.8 k/uL (3.8-10.6)
[2017-09-26] MEDS: INSULIN ASPART 100 UNIT/ML 1 ML 10 ML VIAL SQ SCH ×4 (07:54→21:12)
[2017-09-26 07:56] LABS: ALT 39 U/L (9-52); AST 64 U/L (14-36); Albumin 3.1 g/dL (3.5-5.0); Alkaline Phosphatase 54 U/L (38-126); Anion Gap 14 mmol/L; Blood Urea Nitrogen 8 mg/dL (7-17); Calcium 8.6 mg/dL (8.4-10.2); Carbon Dioxide 22 mmol/L (22-30); Chloride 91 mmol/L (98-107); Glucose 171 mg/dL (74-99); Magnesium 1.3 mg/dL (1.6-2.3); Potassium 4.2 mmol/L (3.5-5.1); Sodium 127 mmol/L (137-145); Total Bilirubin 0.8 mg/dL (0.2-1.3); Total Protein 5.7 g/dL (6.3-8.2)
--- NOTE | 2017-09-26 08:06 | XR ---
EXAMINATION TYPE: XR chest 2V DATE OF EXAM: 09/26/2017 COMPARISON: 09/25/2017. INDICATION: Short of breath, pulmonary edema TECHNIQUE: Frontal and lateral views of the chest are obtained. FINDINGS: The heart size is normal. The pulmonary vasculature is prominent. Small right pleural effusion is present. Minimal left pleural effusion may be present.. IMPRESSION: 1. There may be some early volume overload and pulmonary edema present. A small right pleural effusio n is present. Follow-up can be performed as clinically indicated.
[2017-09-26] MEDS ORDERED: Magnesium Replacement Protocol 1 EACH MISC MISCELLANE PRN (08:26)
[2017-09-26] MEDS: HEPARIN SODIUM,PORCINE 5,000 UNIT/ML 1 ML VIAL SQ SCH (08:42)
[2017-09-26] MEDS: TAMSULOSIN 0.4 MG CAP.ER.24H PO SCH (08:42)
[2017-09-26] MEDS: ATORVASTATIN 20 MG TAB PO SCH (08:42)
[2017-09-26] MEDS: ALVIMOPAN 12 MG CAPSULE PO SCH ×2 (08:42→21:05)
[2017-09-26] MEDS: ATENOLOL 50 MG TAB PO SCH ×2 (08:43→21:05)
[2017-09-26] MEDS: CALCIUM CARBONATE 500 MG CHEWABLE PO SCH (08:43)
[2017-09-26] MEDS: ASPIRIN 325 MG TAB PO SCH (08:43)
[2017-09-26] MEDS: CHOLECALCIFEROL 1,000 UNIT TAB PO SCH (08:43)
[2017-09-26] MEDS: PANTOPRAZOLE 40 MG TABLET PO SCH (08:43)
[2017-09-26] MEDS ORDERED: LOSARTAN 50 MG TAB PO SCH ×2 (09:00→09:04)
[2017-09-26] MEDS: MAGNESIUM SULFATE-D5W PMX 1 GM in DEXTROSE/WATER 1 100ML.BAG IVPB SCH ×3 (09:47→12:37)
[2017-09-26] MEDS: LOSARTAN 50 MG TAB PO SCH (09:47)
[2017-09-26] MEDS: HYDROcodone/APAP 5-325MG 1 EACH TAB PO PRN (11:17)
--- NOTE | 2017-09-26 11:57 | P.PN ---
Subjective Mrs. Bird is a pleasant 72-year-old female past medical history significant for coronary artery disease with 100% chronic total occlusion of RCA , diabetes mellitus, gastroesophageal reflux disease, dyslipidemia, hypertension and former tobacco use. She follows with Dr. Laura in the office. We have been asked to see her in consultation secondary to tachycardia. She is status post lower anterior bowel resection with Dr. Cardenas 09/20. She saw Dr. Laura in the office prior to surgery and was deemed an appropriate risk. Her heart rates have been elevated over the weekend with highest up to 122. Telemetry tracings reveal this was a sinus tachycardia. There was evidence of a 6 beat run of non-sustained ventricular tachycardia noted 09/22 at 1100. She is unable to recall having any symptoms during that particular episode. Nursing staff also states telemetry called with another 8- beat run this morning but those strips are unavailable to me at this time. Her atenolol was resumed Sunday night. She has also had a low grade fever with temperature 104F. She is seen and examined sitting up in the chair in no acute distress. She denies having any symptoms of chest pain, dizziness, palpitations , PND or orhopnea. She complains of abdominal bloating with shortness of breath with exertion. Most recent echocardiogram performed 11/2015 in the office reveals preserved left ventricular systolic function with ejection fraction 55%, mild MR and mildly calcified aortic valve with trace regurgitation. Laboratory data reviewed, hemoglobin 10.4, platelets 262, sodium 133, potassium 3.6, magnesium 1.3, TSH 1.07. Current cardiac medications include Norvasc 5 mg daily, losartan/ hydrochlorothiazide 100/25 mg daily, atorvastatin 20 mg daily, atenolol 25 mg twice a day and aspirin 325 mg daily. 09/25/2017 Mrs. Bird is seen and examined sitting up in bed in no acute distress. She states she has had a bowel movement last night. She continues to complain of bloated feeling with shortness of breath with exertion. She denies chest pain, palpitations, dizziness or nausea/vomiting. Echocardiogram was ordered last night revealed decreased systolic function with EF 35-40%, mid-anterior and apical hypokinesia, mildly dilated LA, mild aortic valve sclerosis, mild TR, mild pulmonary hypertension with RVSP 36.16 mmHg. This is a significant change. Chest xray obtained last night reveals mild pulmonary interstitial edema, possibly mild heart failure. Pro-BNP 6080, sodium 128, potassium 3.3, magnesium 1.7, creatinine 0.54. She again had a fever last night of 100.2F. Blood pressure 124/70 heart rate has been fluctuating between 80-115 with increases noted with exertion. Telemetry tracings show no VT or other arrhythmia. 09/26/2017 Mrs. Bird is seen and examined sitting up in bed in no acute distress. She complains of ongoing exertional shortness of breath and states that she just doesn't feel quite right. Denies chest pain, palpitations, nausea, vomiting or diaphoresis. She states last night she felt as though she was having an anxiety attack and difficulty breathing. Her heart rate went up to around 150. No VT on telemetry. She did have a large bowel movement last night at that time as well. Repeat chest xray was ordered and shows volume overload and pulmonary edema with small right pleural effusion. Repeat pro-BNP 8850. WBC 13.8, hgb 10.7, sodium 127, potassium 4.2, creatinine 0.55, magnesium 1.3. She was given an additional dose of IV lasix last night per primary. Blood pressure this morning 114/70 heart rate 95 and has been afebrile over the last 24 hours. Objective - Vital Signs Vital signs: Vital Signs Temp 97.5 F L 09/26/17 07:44 Pulse 92 09/26/17 11:31 Resp 18 09/26/17 07:44 BP 114/70 09/26/17 07:44 Pulse Ox 95 09/26/17 07:44 Intake & Output 09/25/17 09/26/17 09/26/17 18:59 06:59 18:59 Intake Total 880 540 Output Total 1 Balance 880 539 Weight 78.4 kg Intake: IV 400 Sodium Chloride 0.9% 1, 400 000 ml @ 50 mls/hr IV . Q20H [facility] Rx#:[id number] Oral 480 540 Output: Stool 1 Other: Voiding Method Bedside Commode Toilet Diaper Bedside Commode # Voids 3 3 # Bowel Movements 0 # Emeses 0 - Exam GENERAL: Well-appearing, well-nourished and in no acute distress. NECK: Supple without JVD or thyromegaly. LUNGS: Breath sounds clear to auscultation bilaterally. Respiration equal and unlabored. No wheezes, rales or rhonchi. Diminished b/l. HEART: Regular rate and rhythm without murmurs, rubs or gallops. S1 and S2 heard. EXTREMITIES: Normal range of motion, no edema. No clubbing or cyanosis. Peripheral pulses intact. - Labs CBC & Chem 7: 09/26/17 07:09 09/26/17 07:09 Labs: Abnormal Lab Results - Last 24 Hours (Table) 09/25/17 09/25/17 09/25/17 Range/Units 11:48 17:04 19:58 WBC (3.8-10.6) k/uL Hgb (11.4-16.0) gm/dL Hct (34.0-46.0) % Neutrophils # (1.3-7.7) k/uL Sodium (137-145) mmol/L Chloride (98-107) mmol/L Glucose (74-99) mg/dL POC Glucose (mg/dL) 219 H 202 H 204 H (75-99) mg/dL Magnesium (1.6-2.3) mg/dL AST (14-36) U/L Total Protein (6.3-8.2) g/dL Albumin (3.5-5.0) g/dL 09/26/17 09/26/17 09/26/17 Range/Units 00:47 00:47 06:49 WBC 12.9 H (3.8-10.6) k/uL Hgb 10.5 L (11.4-16.0) gm/dL Hct 31.5 L (34.0-46.0) % Neutrophils # 10.7 H (1.3-7.7) k/uL Sodium 125 L (137-145) mmol/L Chloride 90 L (98-107) mmol/L Glucose 195 H (74-99) mg/dL POC Glucose (mg/dL) 195 H (75-99) mg/dL Magnesium (1.6-2.3) mg/dL AST (14-36) U/L Total Protein (6.3-8.2) g/dL Albumin (3.5-5.0) g/dL 09/26/17 09/26/17 Range/Units 07:09 07:09 WBC 13.8 H (3.8-10.6) k/uL Hgb 10.7 L (11.4-16.0) gm/dL Hct 32.3 L (34.0-46.0) % Neutrophils # 10.9 H (1.3-7.7) k/uL Sodium 127 L (137-145) mmol/L Chloride 91 L (98-107) mmol/L Glucose 171 H (74-99) mg/dL POC Glucose (mg/dL) (75-99) mg/dL Magnesium 1.3 L (1.6-2.3) mg/dL AST 64 H (14-36) U/L Total Protein 5.7 L (6.3-8.2) g/dL Albumin 3.1 L (3.5-5.0) g/dL Microbiology - Last 24 Hours (Table) 09/25/17 12:30 Urine Culture - Preliminary Urine,Clean Catch Assessment and Plan Assessment: ASSESSMENT 1. s/p bowel resection 2. Non-sustained ventricular tachycardia 3. Hypomagnesemia 4. History of coronary artery disease, 100% chronic total occlusion of RCA 5. Hypertension 6. Dyslipidemia 7. Diabetes mellitus 8. Febrile illness 9. Hyponatremia 10. Hypokalmia, replaced pe primary 11. New onset systolic heart failure, EF 35-40%. Ischemic cardiomyopathy. PLAN Give another dose of IV lasix 40mg x1 now. Decrease losartan to 50 mg daily. Continue with intake and output measurements with daily weights. Replace magnesium per protocol. Check troponin levels to rule out an acute infarct. We will continue to follow closely. Nurse Practitioner note has been reviewed, I agree with a documented findings and plan of care. Patient was seen and examined.
[2017-09-26] MEDS ORDERED: MAGNESIUM SULFATE-D5W PMX 1 GM in DEXTROSE/WATER 1 100ML.BAG IVPB SCH (12:15)
--- NOTE | 2017-09-26 12:35 | P.PN ---
Subjective Progress Note Date: 09/26/17 Seen and examined. Sitting up on the edge of the bed. Patient states "had an episode last night had a large bowel movement "additionally patient states "I don't know if I had an panic attack but felt short of breath felt like heart rate was up like I couldn't catch my breath. Currently patient is being followed by cardiology service magnesium was noted to be low at 1.3. No conversational dyspnea noted. Heart rate currently is in the 90s patient currently is denying any surgical discomfort Objective - Vital Signs Vital signs: Vital Signs Temp 97.5 F L 09/26/17 07:44 Pulse 96 09/26/17 11:43 Resp 18 09/26/17 07:44 BP 114/70 09/26/17 07:44 Pulse Ox 95 09/26/17 07:44 Intake & Output 09/25/17 09/26/17 09/26/17 18:59 06:59 18:59 Intake Total 880 540 Output Total 1 Balance 880 539 Weight 78.4 kg 78.4 kg Intake: IV 400 Sodium Chloride 0.9% 1, 400 000 ml @ 50 mls/hr IV . Q20H [facility] Rx#:[id number] Oral 480 540 Output: Stool 1 Other: Voiding Method Bedside Commode Toilet Diaper Bedside Commode # Voids 3 3 # Bowel Movements 0 # Emeses 0 - Exam Physical exam 72-year-old female sitting up on the edge of the bed this morning states currently does not feel short of breath nasal cannula on 2 L no cough noted no conversational dyspnea noted Lungs adequate air movement bilaterally no shortness of breath heart S1-S2 audible and regular denying chest pain no murmur noted Abdomen soft nontender surgical dressing dry active bowel tones tolerating diet reports no nausea vomiting nondistended Extremities no edema noted to the bilateral lower extremities - Labs CBC & Chem 7: 09/26/17 07:09 09/26/17 07:09 Labs: Abnormal Lab Results - Last 24 Hours (Table) 09/25/17 09/25/17 09/26/17 Range/Units 17:04 19:58 00:47 WBC 12.9 H (3.8-10.6) k/uL Hgb 10.5 L (11.4-16.0) gm/dL Hct 31.5 L (34.0-46.0) % Neutrophils # 10.7 H (1.3-7.7) k/uL Sodium (137-145) mmol/L Chloride (98-107) mmol/L Glucose (74-99) mg/dL POC Glucose (mg/dL) 202 H 204 H (75-99) mg/dL Magnesium (1.6-2.3) mg/dL AST (14-36) U/L Total Protein (6.3-8.2) g/dL Albumin (3.5-5.0) g/dL 09/26/17 09/26/17 09/26/17 Range/Units 00:47 06:49 07:09 WBC 13.8 H (3.8-10.6) k/uL Hgb 10.7 L (11.4-16.0) gm/dL Hct 32.3 L (34.0-46.0) % Neutrophils # 10.9 H (1.3-7.7) k/uL Sodium 125 L (137-145) mmol/L Chloride 90 L (98-107) mmol/L Glucose 195 H (74-99) mg/dL POC Glucose (mg/dL) 195 H (75-99) mg/dL Magnesium (1.6-2.3) mg/dL AST (14-36) U/L Total Protein (6.3-8.2) g/dL Albumin (3.5-5.0) g/dL 09/26/17 Range/Units 07:09 WBC (3.8-10.6) k/uL Hgb (11.4-16.0) gm/dL Hct (34.0-46.0) % Neutrophils # (1.3-7.7) k/uL Sodium 127 L (137-145) mmol/L Chloride 91 L (98-107) mmol/L Glucose 171 H (74-99) mg/dL POC Glucose (mg/dL) (75-99) mg/dL Magnesium 1.3 L (1.6-2.3) mg/dL AST 64 H (14-36) U/L Total Protein 5.7 L (6.3-8.2) g/dL Albumin 3.1 L (3.5-5.0) g/dL Microbiology - Last 24 Hours (Table) 09/25/17 12:30 Urine Culture - Preliminary Urine,Clean Catch Assessment and Plan Assessment: Impression History of diverticulitis with severe diverticulosis sigmoid colon mass per previous CAT scan of the abdomen Low anterior resection for a sigmoid colon mass done on September 20 Electrolyte abnormality hypokalemia, hyponatremia suspect due to diuretics corrected resolved Episodes of nonsustained ventricular tachycardia Acute on chronic systolic heart failure EF per echocardiogram between 35 and 40% New-onset systolic heart failure symptomatic Hypo-magnesium Plan Continue postop surgical care Encourage the use of the incentive spirometer Pain control DVT and GI prophylaxis Increase activity as tolerated Advance diet Defer to medicine to address medical issues Magnesium to be replaced Would recommend holding hydrochlorothiazide and monitor sodium Continue recommendations cardiology service The above impression and plan of care have been discussed and directed by signing physician. Sofie Mcmahan nurse practitioner acting as scribe for signing physician.
[2017-09-26] MEDS: MULTIVITAMINS, THERA 1 EACH TAB PO SCH (12:39)
[2017-09-26 13:02] LABS: Glucose,Whole Blood 230 mg/dL (75-99)
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
--- NOTE | 2017-09-26 13:30 | P.PN ---
Subjective Progress Note Date: 09/26/17 This is a 72-year-old female, patient of [facility]. She has a known past medical history of diabetes, hyperlipidemia, hypertension, Mnire's disease, irregular heartbeat in which she takes atenolol and chronic back pain. Patient has been suffering with severe diverticulosis and his diverticulitis. She also had a questionable sigmoid colon mass on a previous computed tomography scan of the abdomen. Patient underwent a lower anterior resection today with Dr. Cardenas. Estimated blood loss 50 mL. No complications reported after surgery. We were consulted for medical management. Patient denies any chest pain or shortness of breath. Denies any nausea or vomiting. Has Villagomez catheter in place. Patient currently also has an epidural is nothing by mouth 09/21/2017 patient's abdominal pain is tolerable. She denies any nausea or vomiting. Denies any chest pain or shortness of breath. Denies passing gas or bowel movement yet. Still is Villagomez catheter and epidural. Blood sugars are been in the 200s likely related to the dextrose in the IV fluids as well as she received dexamethasone in the OR. Continue sliding scale coverage will discontinue the D5 half-normal saline and place her on normal saline at 125 mL an hour. A1c 6.9 On 09/22/2017 patient is alert and oriented 3 in no apparent distress pain is well tolerated there is no fever or chills no nausea or vomiting no chest pain or shortness of breath patient has occasional cough Villagomez catheter is still in causing some discomfort otherwise no complaints at this time. On 09/23/2017 patient is alert and oriented she was seen and examined on the third floor she is complaining of mild abdominal discomfort otherwise no complaints there is no fever or chills no nausea or vomiting no chest pain no shortness of breath no diarrhea, she has not passed any gas or had any bowel movement since surgery. 09/24/2017 Patient is sitting up in bedside chair. she is passing gas. No bowel movement yet. Epidural removed over the weekend. pain is controlled. Patient denies any chest pain. She does admit to having some heart palpitations. She has evidence of some sinus tachycardia occasionally on telemetry. Patient's home medications which include a beta maximino was recently restarted. There has been improvement in the heart rate. She has sinus tachycardia with ambulating. Patient is eating a full liquid diet. Denies any nausea or vomiting patient did have a low-grade temp of 100.4. White count 9.8. Sodium 133. IV fluids discontinued today 09/25/2017 patient had bowel movement yesterday she is still passing gas. She' s currently on a full liquid diet. She had a run of V. tach yesterday. This was likely related to her low magnesium level. She was seen evaluated by cardiology. Magnesium has been replaced. Magnesium level is now up 2. Patient also had evidence of fluid overload on chest x-ray cardiology did add IV Lasix. Case has been discussed with both surgical service and cardiology nurse practitioner's. Patient sodium level has dropped to 128. At this time we will be discontinuing the hydrochlorothiazide component of her Hyzaar and cardiology will be giving her a one-time dose of Lasix only for the fluid overload. Patient did complain of some mild burning with urination. On 09/26/2017 patient is alert and oriented in no apparent distress during the last night patient had an episode of severe shortness of breath A team was called and patient received IV Lasix and improved. At this time there is no fever or chills no headache no dizziness no chest pain no shortness of breath at rest no nausea or vomiting no abdominal pain no diarrhea and no urinary symptoms. Objective - Vital Signs Vital signs: Vital Signs Temp 97.5 F L 09/26/17 07:44 Pulse 96 09/26/17 11:43 Resp 18 09/26/17 07:44 BP 114/70 09/26/17 07:44 Pulse Ox 95 09/26/17 07:44 Intake & Output 09/25/17 09/26/17 09/26/17 18:59 06:59 18:59 Intake Total 880 540 Output Total 1 Balance 880 539 Weight 78.4 kg 78.4 kg Intake: IV 400 Sodium Chloride 0.9% 1, 400 000 ml @ 50 mls/hr IV . Q20H [facility] Rx#:[id number] Oral 480 540 Output: Stool 1 Other: Voiding Method Bedside Commode Toilet Diaper Bedside Commode # Voids 3 3 # Bowel Movements 0 # Emeses 0 - Exam Head normocephalic and atraumatic Neck supple no JVD no goiter Lungs clear to auscultation bilaterally no wheezing or crackles Heart regular rate and rhythm S1-S2, no rub or gallop Abdomen is soft nontender nondistended positive bowel sounds no hepatosplenomegaly. Extremities no edema no cyanosis or clubbing Neuro alert and orientated to 3 - Labs CBC & Chem 7: 09/26/17 07:09 09/26/17 07:09 Labs: Abnormal Lab Results - Last 24 Hours (Table) 09/25/17 09/25/17 09/26/17 Range/Units 17:04 19:58 00:47 WBC 12.9 H (3.8-10.6) k/uL Hgb 10.5 L (11.4-16.0) gm/dL Hct 31.5 L (34.0-46.0) % Neutrophils # 10.7 H (1.3-7.7) k/uL Sodium (137-145) mmol/L Chloride (98-107) mmol/L Glucose (74-99) mg/dL POC Glucose (mg/dL) 202 H 204 H (75-99) mg/dL Magnesium (1.6-2.3) mg/dL AST (14-36) U/L Total Protein (6.3-8.2) g/dL Albumin (3.5-5.0) g/dL 09/26/17 09/26/17 09/26/17 Range/Units 00:47 06:49 07:09 WBC 13.8 H (3.8-10.6) k/uL Hgb 10.7 L (11.4-16.0) gm/dL Hct 32.3 L (34.0-46.0) % Neutrophils # 10.9 H (1.3-7.7) k/uL Sodium 125 L (137-145) mmol/L Chloride 90 L (98-107) mmol/L Glucose 195 H (74-99) mg/dL POC Glucose (mg/dL) 195 H (75-99) mg/dL Magnesium (1.6-2.3) mg/dL AST (14-36) U/L Total Protein (6.3-8.2) g/dL Albumin (3.5-5.0) g/dL 09/26/17 09/26/17 Range/Units 07:09 12:42 WBC (3.8-10.6) k/uL Hgb (11.4-16.0) gm/dL Hct (34.0-46.0) % Neutrophils # (1.3-7.7) k/uL Sodium 127 L (137-145) mmol/L Chloride 91 L (98-107) mmol/L Glucose 171 H (74-99) mg/dL POC Glucose (mg/dL) 230 H (75-99) mg/dL Magnesium 1.3 L (1.6-2.3) mg/dL AST 64 H (14-36) U/L Total Protein 5.7 L (6.3-8.2) g/dL Albumin 3.1 L (3.5-5.0) g/dL Microbiology - Last 24 Hours (Table) 09/25/17 12:30 Urine Culture - Preliminary Urine,Clean Catch Assessment and Plan Plan: 1. Status post lower anterior resection with a known history of diverticulitis and evidence of a sigmoid colon mass: Patient having bowel movement. Tolerating full liquid diet. Pain is controlled 2. Essential hypertension: Home BP meds restarted 3. Diabetes mellitus type 2: Continue sliding scale coverage 4. History of irregular heartbeat, possibly PVCs. Patient denies any history of V. tach or atrial fibrillation. Atenolol restarted. Continue with telemetry monitoring. Heart rate showing improvement after restarting the atenolol 5. Hyperlipidemia: AST trending down. Cardiology did restart statin 6. History of chronic back pain and herniated disks 7. Patient continues to have a low-grade temp. She is complaining of burning with urination. Urinalysis will be ordered with culture. 8. Acute systolic CHF exacerbation: with x-ray showing mild pulmonary interstitial edema and elevated BNP. Cardiology will be given 1 dose of IV Lasix. Echo shows an EF of 35-40%. There was evidence of wall motion abnormality and mild pulmonary hypertension. Cardiology following 9. One episode of nonsustained ventricle tachycardia likely related to hypo- magnesium. Continue with telemetry monitoring. Magnesium has been replaced. 10. Hypokalemia patient receiving potassium supplement 11. Hyponatremia: Sodium level is down to 127. Discontinue hydrochlorothiazide and Lasix will be decreased to just one-time dose of 40 mg. Case discussed with cardiology and surgical service. Patient was seen by nephrology and was placed on fluid restriction will continue to monitor sodium level 12. Leukocytosis, patient is afebrile, will check chest x-ray urine analysis and blood culture will follow closely DVT prophylaxis subcu heparin
[2017-09-26] MEDS ORDERED: HEPARIN SODIUM,PORCINE 5,000 UNIT/ML 1 ML VIAL IV PRN (13:50)
--- NOTE | 2017-09-26 13:56 | P.PN ---
Progress Note - Text Progress Note Date: 09/26/17 Cardiology ordered troponins as part of a workup for decrease LV function on a recent echocardiogram Troponin were noted to be elevated 14.5 patient denied any chest pain. Cardiology indicated they would like to start IV heparin drip now and schedule patient for heart catheterization tomorrow to evaluate for non- ST elevated PA. Did discuss with regarding starting IV heparin drip with possible anticoagulation pending heart catheterization findings. Dr. pelletier indicated from a surgical perspective no contraindication for starting anticoagulation okay to proceed with IV heparin drip today and proceed with a heart catheterization in the morning
[2017-09-26] MEDS ORDERED: HEPARIN SODIUM,PORCINE/D5W PMX 25,000 UNIT in DEXTROSE/WATER 1 500ML.BAG IV SCH (14:00)
[2017-09-26] MEDS ORDERED: NITROGLYCERIN SL TABS 0.4 MG TAB SUBLINGUAL PRN (14:32)
[2017-09-26] MEDS ORDERED: SODIUM CHLORIDE 0.9% 1,000 ML in EMPTY BAG 1 BAG IV ONE (14:32)
[2017-09-26] MEDS ORDERED: ALPRAZolam 0.25 MG TAB PO PRN (14:32)
[2017-09-26 15:08] LABS: INR 1.1 (<1.2); Partial Thromboplastin Time 24.8 sec (22.0-30.0); Prothrombin Time 10.5 sec (9.0-12.0)
[2017-09-26 15:32] LABS: Basophils % (A) 0 %; Eosinophils # (A) 0.1 k/uL (0-0.7); Eosinophils % (A) 1 %; HCT 32.7 % (34.0-46.0); HGB 10.9 gm/dL (11.4-16.0); Hypochromasia Slight; Lymphocytes # (A) 1.9 k/uL (1.0-4.8); Lymphocytes % (A) 16 %; MCH 27.8 pg (25.0-35.0); MCHC 33.4 g/dL (31.0-37.0); MCV 83.2 fL (80.0-100.0); Mean Platelet Volume 7.5; Monocytes # (A) 0.8 k/uL (0-1.0); Monocytes % (A) 6 %; Neutrophils # (A) 9.1 k/uL (1.3-7.7); Neutrophils % (A) 75 %; Platelet Count 368 k/uL (150-450); RBC 3.93 m/uL (3.80-5.40); RDW 14.4 % (11.5-15.5); WBC 12.1 k/uL (3.8-10.6)
--- NOTE | 2017-09-26 16:08 | P.PN ---
Progress Note - Text Progress Note Date: 09/26/17 Events noted Cardiology ordered troponin level as part of her evaluation for decreased LV function, troponin level elevated. Patient denies any chest pain, troponin level elevated at 14.5 She was transferred to telemetry floor, IV heparin to be started Patient scheduled for cardiac catheterization tomorrow
[2017-09-26] MEDS: ALPRAZolam 0.5 MG TAB PO PRN ×2 (16:24→22:31)
[2017-09-26 16:39] LABS: Glucose,Whole Blood 212 mg/dL (75-99)
[2017-09-26] MEDS ORDERED: TOLVAPTAN 15 MG 1/2 TABLET PO ONE (20:11)
[2017-09-26] MEDS: LATANOPROST 0.005% OPHTH DROPS 2.5 ML BTL RIGHT EYE SCH (21:05)
[2017-09-26 21:07] LABS: Glucose,Whole Blood 188 mg/dL (75-99)
[2017-09-27] MEDS: HYDROcodone/APAP 5-325MG 1 EACH TAB PO PRN (03:32)
[2017-09-27 03:39] LABS: Basophils % (A) 0 %; Eosinophils # (A) 0.2 k/uL (0-0.7); Eosinophils % (A) 2 %; HCT 27.5 % (34.0-46.0); Lymphocytes # (A) 1.8 k/uL (1.0-4.8); Lymphocytes % (A) 20 %; MCH 27.3 pg (25.0-35.0); MCHC 33.8 g/dL (31.0-37.0); MCV 80.7 fL (80.0-100.0); Mean Platelet Volume 6.6; Monocytes # (A) 0.6 k/uL (0-1.0); Monocytes % (A) 6 %; Neutrophils # (A) 6.4 k/uL (1.3-7.7); Neutrophils % (A) 70 %; Platelet Count 335 k/uL (150-450); RDW 14.5 % (11.5-15.5); WBC 9.2 k/uL (3.8-10.6)
[2017-09-27 03:40] LABS: HGB 9.3 gm/dL (11.4-16.0)
[2017-09-27 04:10] LABS: ALT 41 U/L (9-52); AST 34 U/L (14-36); Albumin 2.7 g/dL (3.5-5.0); Alkaline Phosphatase 49 U/L (38-126); Anion Gap 9 mmol/L; Blood Urea Nitrogen 10 mg/dL (7-17); Calcium 8.5 mg/dL (8.4-10.2); Carbon Dioxide 24 mmol/L (22-30); Chloride 89 mmol/L (98-107); Glucose 164 mg/dL (74-99); Magnesium 1.7 mg/dL (1.6-2.3); Potassium 3.7 mmol/L (3.5-5.1); Sodium 122 mmol/L (137-145); Total Bilirubin 0.4 mg/dL (0.2-1.3)
[2017-09-27] MEDS: INSULIN ASPART 100 UNIT/ML 1 ML 10 ML VIAL SQ SCH ×4 (05:35→22:15)
[2017-09-27 05:41] LABS: Glucose,Whole Blood 186 mg/dL (75-99)
[2017-09-27] MEDS: ASPIRIN 325 MG TAB PO SCH (05:51)
[2017-09-27] MEDS: ATENOLOL 50 MG TAB PO SCH ×2 (05:52→22:10)
[2017-09-27] MEDS: PANTOPRAZOLE 40 MG TABLET PO SCH (05:52)
[2017-09-27] MEDS: CALCIUM CARBONATE 500 MG CHEWABLE PO SCH (05:52)
[2017-09-27] MEDS: LOSARTAN 50 MG TAB PO SCH (05:52)
[2017-09-27] MEDS: TAMSULOSIN 0.4 MG CAP.ER.24H PO SCH (05:52)
[2017-09-27] MEDS: ALVIMOPAN 12 MG CAPSULE PO SCH ×2 (05:52→20:41)
[2017-09-27] MEDS: IPRATROPIUM-ALBUTEROL 3 ML NEB INHALATION SCH ×4 (08:23→19:29)
[2017-09-27] MEDS ORDERED: FUROSEMIDE 10 MG/ML 10 ML VIAL IV STA ×2 (08:56→09:01)
[2017-09-27] MEDS ORDERED: ATORVASTATIN 80 MG TAB PO SCH (09:00)
--- NOTE | 2017-09-27 09:02 | P.PN ---
Subjective Patient is seen in follow-up for hyponatremia which is mostly related to tea and toast diet. Her urine osmolality was quite low and so was her urine sodium. She did receive 2 doses of Lasix yesterday and 1 dose of Samsca and her sodium this morning is 122. She is more dyspneic this morning. She is unable to lay flat. She is still on a full liquid diet. She underwent lower anterior bowel resection on September 20. Vital signs are stable. General: The patient appeared well nourished and normally developed. HEENT: Head exam is unremarkable. Neck is without jugular venous distension. LUNGS: Breath sounds decreased. Scattered rales. HEART: Rate and Rhythm are regular. First and second heart sounds normal. No murmurs, rubs or gallops. ABDOMEN: Abdominal exam reveals normal bowel sounds. Non-tender and non- distended. No evidence of peritonitis. EXTREMITITES: No clubbing, cyanosis, or edema. Objective - Vital Signs Vital signs: Vital Signs Temp 98.0 F 09/27/17 04:00 Pulse 80 09/27/17 08:46 Resp 18 09/27/17 04:00 BP 114/77 09/27/17 00:00 Pulse Ox 98 09/27/17 04:00 Intake & Output 09/26/17 09/27/17 09/27/17 18:59 06:59 18:59 Intake Total 450 417.079 Output Total 153 Balance 450 264.079 Weight 78.4 kg 78.8 kg Intake: Intake, IV Titration 292.079 Amount Heparin Sodium,Porcine/ 292.079 D5w Pmx 25,000 unit In Dextrose/Water 1 500ml. bag @ 12 UNITS/KG/HR 18. 81 mls/hr IV .Q24H [facility] Rx #:[id number] Oral 450 125 Output: Urine 150 Stool 3 Other: Voiding Method Toilet Toilet Bedside Commode Bedside Commode # Voids 2 3 - Labs CBC & Chem 7: 09/27/17 03:14 09/27/17 03:14 Labs: Abnormal Lab Results - Last 24 Hours (Table) 09/26/17 09/26/17 09/26/17 Range/Units 12:40 12:40 12:42 WBC (3.8-10.6) k/uL RBC (3.80-5.40) m/uL Hgb (11.4-16.0) gm/dL Hct (34.0-46.0) % Neutrophils # (1.3-7.7) k/uL APTT (22.0-30.0) sec Sodium (137-145) mmol/L Chloride (98-107) mmol/L Glucose (74-99) mg/dL POC Glucose (mg/dL) 230 H (75-99) mg/dL Osmolality 264 L (280-301) mosm/kg Troponin I 14.500 H* (0.000-0.034) ng/mL Total Protein (6.3-8.2) g/dL Albumin (3.5-5.0) g/dL Ur Random Sodium (30-90) mmol/L 09/26/17 09/26/17 09/26/17 Range/Units 14:17 16:23 16:28 WBC 12.1 H (3.8-10.6) k/uL RBC (3.80-5.40) m/uL Hgb 10.9 L (11.4-16.0) gm/dL Hct 32.7 L (34.0-46.0) % Neutrophils # 9.1 H (1.3-7.7) k/uL APTT (22.0-30.0) sec Sodium (137-145) mmol/L Chloride (98-107) mmol/L Glucose (74-99) mg/dL POC Glucose (mg/dL) 212 H (75-99) mg/dL Osmolality (280-301) mosm/kg Troponin I (0.000-0.034) ng/mL Total Protein (6.3-8.2) g/dL Albumin (3.5-5.0) g/dL Ur Random Sodium 5 L (30-90) mmol/L 09/26/17 09/26/17 09/26/17 Range/Units 18:05 18:05 19:45 WBC (3.8-10.6) k/uL RBC (3.80-5.40) m/uL Hgb (11.4-16.0) gm/dL Hct (34.0-46.0) % Neutrophils # (1.3-7.7) k/uL APTT 37.9 H (22.0-30.0) sec Sodium 124 L (137-145) mmol/L Chloride (98-107) mmol/L Glucose (74-99) mg/dL POC Glucose (mg/dL) (75-99) mg/dL Osmolality (280-301) mosm/kg Troponin I 13.100 H* (0.000-0.034) ng/mL Total Protein (6.3-8.2) g/dL Albumin (3.5-5.0) g/dL Ur Random Sodium (30-90) mmol/L 09/26/17 09/27/17 09/27/17 Range/Units 21:05 00:16 03:14 WBC (3.8-10.6) k/uL RBC 3.40 L (3.80-5.40) m/uL Hgb 9.3 L D (11.4-16.0) gm/dL Hct 27.5 L (34.0-46.0) % Neutrophils # (1.3-7.7) k/uL APTT (22.0-30.0) sec Sodium (137-145) mmol/L Chloride (98-107) mmol/L Glucose (74-99) mg/dL POC Glucose (mg/dL) 188 H (75-99) mg/dL Osmolality (280-301) mosm/kg Troponin I 12.300 H* (0.000-0.034) ng/mL Total Protein (6.3-8.2) g/dL Albumin (3.5-5.0) g/dL Ur Random Sodium (30-90) mmol/L 09/27/17 09/27/17 09/27/17 Range/Units 03:14 03:14 05:40 WBC (3.8-10.6) k/uL RBC (3.80-5.40) m/uL Hgb (11.4-16.0) gm/dL Hct (34.0-46.0) % Neutrophils # (1.3-7.7) k/uL APTT 44.7 H (22.0-30.0) sec Sodium 122 L (137-145) mmol/L Chloride 89 L (98-107) mmol/L Glucose 164 H (74-99) mg/dL POC Glucose (mg/dL) 186 H (75-99) mg/dL Osmolality (280-301) mosm/kg Troponin I (0.000-0.034) ng/mL Total Protein 5.0 L (6.3-8.2) g/dL Albumin 2.7 L (3.5-5.0) g/dL Ur Random Sodium (30-90) mmol/L Microbiology - Last 24 Hours (Table) 09/25/17 12:30 Urine Culture - Final Urine,Clean Catch Assessment and Plan Plan: Assessment: 1. Hyponatremia secondary to low solute intake in the setting of liquid diet. Patient appears more hypervolemic today as well. Sodium level 122 today. 2. Hypomagnesemia secondary to diuretics. Improved post replacement. 3. Systolic CHF with ejection fraction of 35-40%. 4. Status post lower anterior bowel resection on 09/14/2017. 5. Fluid overload. 6. Acute myocardial infarction scheduled for cardiac catheterization today. Plan: Maintain 1200 mL fluid restriction. Lasix 60 mg IV once now. Follow-up chest x-ray. Add salt tabs 1 g 3 times daily. Add ensure 3 times daily. Repeat sodium level this evening.
--- NOTE | 2017-09-27 09:17 | XR ---
EXAMINATION TYPE: XR chest 1V portable DATE OF EXAM: 09/27/2017 COMPARISON: 09/26/2017 HISTORY: Shortness of breath FINDINGS: Noted is progressive pulmonary venous congestion with scattered infiltrates. There is also cardiomegaly and small effusions. IMPRESSION: Findings compatible with progressive congestive failure. Infiltrates of other etiology are not exclu ded. Clinical correlation and progress studies are recommended.
[2017-09-27] MEDS: SODIUM CHLORIDE TAB 1 GM TAB PO SCH ×3 (10:06→21:59)
[2017-09-27 11:51] LABS: Glucose,Whole Blood 243 mg/dL (75-99)
[2017-09-27] MEDS ORDERED: IV FLUID CONTINUATION 250 ML IV ONE (12:27)
[2017-09-27] MEDS ORDERED: MORPHINE SULFATE 4 MG/ML SYRINGE IVP ONE (12:33)
[2017-09-27] MEDS ORDERED: LIDOCAINE 2% INJ 20 MG/ML SQ ONE (12:36)
[2017-09-27] MEDS ORDERED: IOPAMIDOL-370 125ML BTL INJ ONE (12:56)
[2017-09-27] MEDS ORDERED: IOPAMIDOL-250 50ML BTL INTRAARTER ONE (12:56)
[2017-09-27] MEDS ORDERED: RX INFO: IV CONTRAST WAS GIVEN 1 EACH MISC MISCELLANE PRN (13:17)
--- NOTE | 2017-09-27 13:17 | P.PN ---
Subjective Progress Note Date: 09/27/17 This pleasant 72-year-old female with past medical history significant for coronary artery disease with 100% chronic total occlusion of the RCA, diabetes, hyperlipidemia, hypertension, prior nicotine use. She follows with Dr. VC Laura in the office. Patient presented to the hospital with abdominal discomfort, she is status post lower anterior bowel resection on the 17th of this month. Subsequently patient did develop acute shortness of breath, she was also noted to have a nonsustained ventricular tachycardia. Echocardiogram with Doppler study was performed which revealed a decreased systolic function with an ejection fraction of 35-40%, mid anterior and apical hypokinesia, mildly dilated LA, mild aortic valve sclerosis. Patient then because of the abnormality noted in the LV function was ordered to have troponins obtained. Initial troponin 14.5, subsequent troponin 13.1 and 12.3. The patient was transferred to the telemetry unit yesterday afternoon, she had a fairly rough night through the night last night, complaining of significant shortness of breath. At the time of her examination this morning, we did give her a dose of one time IV Lasix 80 mg. We did speak with the 2 children who are out of town as well, recommending that the patient undergo cardiac catheterization in spite of the fact she was in heart failure. He also mentioned to them that she may require intubation during this procedure. The patient and the children were willing for her to proceed. Stat chest x-ray was also requested. An EKG performed yesterday did show acute changes in the anterior wall region. Objective - Vital Signs Vital signs: Vital Signs Temp 98.5 F 09/27/17 08:45 Pulse 80 09/27/17 08:46 Resp 20 09/27/17 08:45 BP 120/78 09/27/17 08:45 Pulse Ox 89 L 09/27/17 08:45 Intake & Output 09/26/17 09/27/17 09/27/17 18:59 06:59 18:59 Intake Total 450 417.079 110 Output Total 153 1030 Balance 450 264.079 -920 Weight 78.4 kg 78.8 kg Intake: IV 110 Sodium Chloride 0.9% 1, 60 000 ml @ 50 mls/hr IV . Q20H [facility] Rx#:[id number] Intake, IV Titration 292.079 Amount Heparin Sodium,Porcine/ 292.079 D5w Pmx 25,000 unit In Dextrose/Water 1 500ml. bag @ 12 UNITS/KG/HR 18. 81 mls/hr IV .Q24H [facility] Rx #:[id number] Oral 450 125 Output: Urine 150 1030 Stool 3 Other: Voiding Method Toilet Toilet Indwelling Catheter Bedside Commode Bedside Commode # Voids 2 3 - Exam PHYSICAL EXAMINATION: HEENT: Head is atraumatic, normocephalic. Pupils equal, round. Neck is supple. There is elevated jugular venous pressure. HEART EXAMINATION: Heart S1 S2 1 systolic murmur is heard. CHEST EXAMINATION: Lungs revealed diminished air entry bilaterally with rales to bilateral bases. ABDOMEN: Soft, nontender. Bowel sounds are heard. No organomegaly noted. EXTREMITIES: 2+ peripheral pulses with no evidence of peripheral edema and no calf tenderness noted. NEUROLOGIC patient is awake, alert and oriented -3. In mild distress. . - Labs CBC & Chem 7: 09/27/17 03:14 09/27/17 03:14 Labs: Abnormal Lab Results - Last 24 Hours (Table) 09/26/17 09/26/17 09/26/17 Range/Units 12:40 12:40 14:17 WBC 12.1 H (3.8-10.6) k/uL RBC (3.80-5.40) m/uL Hgb 10.9 L (11.4-16.0) gm/dL Hct 32.7 L (34.0-46.0) % Neutrophils # 9.1 H (1.3-7.7) k/uL APTT (22.0-30.0) sec Sodium (137-145) mmol/L Chloride (98-107) mmol/L Glucose (74-99) mg/dL POC Glucose (mg/dL) (75-99) mg/dL Osmolality 264 L (280-301) mosm/kg Troponin I 14.500 H* (0.000-0.034) ng/mL Total Protein (6.3-8.2) g/dL Albumin (3.5-5.0) g/dL Ur Random Sodium (30-90) mmol/L 09/26/17 09/26/17 09/26/17 Range/Units 16:23 16:28 18:05 WBC (3.8-10.6) k/uL RBC (3.80-5.40) m/uL Hgb (11.4-16.0) gm/dL Hct (34.0-46.0) % Neutrophils # (1.3-7.7) k/uL APTT (22.0-30.0) sec Sodium 124 L (137-145) mmol/L Chloride (98-107) mmol/L Glucose (74-99) mg/dL POC Glucose (mg/dL) 212 H (75-99) mg/dL Osmolality (280-301) mosm/kg Troponin I (0.000-0.034) ng/mL Total Protein (6.3-8.2) g/dL Albumin (3.5-5.0) g/dL Ur Random Sodium 5 L (30-90) mmol/L 09/26/17 09/26/17 09/26/17 Range/Units 18:05 19:45 21:05 WBC (3.8-10.6) k/uL RBC (3.80-5.40) m/uL Hgb (11.4-16.0) gm/dL Hct (34.0-46.0) % Neutrophils # (1.3-7.7) k/uL APTT 37.9 H (22.0-30.0) sec Sodium (137-145) mmol/L Chloride (98-107) mmol/L Glucose (74-99) mg/dL POC Glucose (mg/dL) 188 H (75-99) mg/dL Osmolality (280-301) mosm/kg Troponin I 13.100 H* (0.000-0.034) ng/mL Total Protein (6.3-8.2) g/dL Albumin (3.5-5.0) g/dL Ur Random Sodium (30-90) mmol/L 09/27/17 09/27/17 09/27/17 Range/Units 00:16 03:14 03:14 WBC (3.8-10.6) k/uL RBC 3.40 L (3.80-5.40) m/uL Hgb 9.3 L D (11.4-16.0) gm/dL Hct 27.5 L (34.0-46.0) % Neutrophils # (1.3-7.7) k/uL APTT (22.0-30.0) sec Sodium 122 L (137-145) mmol/L Chloride 89 L (98-107) mmol/L Glucose 164 H (74-99) mg/dL POC Glucose (mg/dL) (75-99) mg/dL Osmolality (280-301) mosm/kg Troponin I 12.300 H* (0.000-0.034) ng/mL Total Protein 5.0 L (6.3-8.2) g/dL Albumin 2.7 L (3.5-5.0) g/dL Ur Random Sodium (30-90) mmol/L 09/27/17 09/27/17 09/27/17 Range/Units 03:14 05:40 10:33 WBC (3.8-10.6) k/uL RBC (3.80-5.40) m/uL Hgb (11.4-16.0) gm/dL Hct (34.0-46.0) % Neutrophils # (1.3-7.7) k/uL APTT 44.7 H 41.3 H (22.0-30.0) sec Sodium (137-145) mmol/L Chloride (98-107) mmol/L Glucose (74-99) mg/dL POC Glucose (mg/dL) 186 H (75-99) mg/dL Osmolality (280-301) mosm/kg Troponin I (0.000-0.034) ng/mL Total Protein (6.3-8.2) g/dL Albumin (3.5-5.0) g/dL Ur Random Sodium (30-90) mmol/L 09/27/17 Range/Units 11:29 WBC (3.8-10.6) k/uL RBC (3.80-5.40) m/uL Hgb (11.4-16.0) gm/dL Hct (34.0-46.0) % Neutrophils # (1.3-7.7) k/uL APTT (22.0-30.0) sec Sodium (137-145) mmol/L Chloride (98-107) mmol/L Glucose (74-99) mg/dL POC Glucose (mg/dL) 243 H (75-99) mg/dL Osmolality (280-301) mosm/kg Troponin I (0.000-0.034) ng/mL Total Protein (6.3-8.2) g/dL Albumin (3.5-5.0) g/dL Ur Random Sodium (30-90) mmol/L Microbiology - Last 24 Hours (Table) 09/25/17 12:30 Urine Culture - Final Urine,Clean Catch Assessment and Plan Plan: Assessment and plan #1 status post bowel resection #2 nonsustained ventricular tachycardia #3 acute anterior wall myocardial infarction #4 systolic congestive heart failure acute on chronic Number 5 ischemic cardiomyopathy #6 known history of coronary artery disease with a prior 100% occlusion of the RCA #7 hypertension #8 hyperlipidemia #9 diabetes Plan Patient will be given an 80 mg of IV Lasix stat, we will also obtain a stat chest x-ray. She will be taken directly to the cardiac catheterization lab, the risks and the benefits were explained both to the patient and her children who are out of town in detail. Further recommendations will be based on these findings and patient's clinical course. DNP note has been reviewed, I agree with a documented findings and plan of care. Patient was seen and examined.
[2017-09-27] MEDS ORDERED: ALPRAZolam 0.25 MG TAB PO PRN (13:25)
[2017-09-27] MEDS ORDERED: ASPIRIN 325 MG TAB PO STA (13:25)
[2017-09-27] MEDS ORDERED: SODIUM CHLORIDE 0.9% 1,000 ML in EMPTY BAG 1 BAG IV ONE (13:25)
[2017-09-27] MEDS ORDERED: ALPRAZolam 0.5 MG TAB PO PRN (13:25)
[2017-09-27] MEDS ORDERED: ATORVASTATIN 80 MG TAB PO STA (13:25)
[2017-09-27] MEDS ORDERED: NITROGLYCERIN SL TABS 0.4 MG TAB SUBLINGUAL PRN (13:25)
--- NOTE | 2017-09-27 13:30 | P.PN ---
Subjective Progress Note Date: 09/27/17 This is a 72-year-old female, patient of [facility]. She has a known past medical history of diabetes, hyperlipidemia, hypertension, Mnire's disease, irregular heartbeat in which she takes atenolol and chronic back pain. Patient has been suffering with severe diverticulosis and his diverticulitis. She also had a questionable sigmoid colon mass on a previous computed tomography scan of the abdomen. Patient underwent a lower anterior resection today with Dr. Cardenas. Estimated blood loss 50 mL. No complications reported after surgery. We were consulted for medical management. Patient denies any chest pain or shortness of breath. Denies any nausea or vomiting. Has Villagomez catheter in place. Patient currently also has an epidural is nothing by mouth 09/21/2017 patient's abdominal pain is tolerable. She denies any nausea or vomiting. Denies any chest pain or shortness of breath. Denies passing gas or bowel movement yet. Still is Villagomez catheter and epidural. Blood sugars are been in the 200s likely related to the dextrose in the IV fluids as well as she received dexamethasone in the OR. Continue sliding scale coverage will discontinue the D5 half-normal saline and place her on normal saline at 125 mL an hour. A1c 6.9 09/24/2017 Patient is sitting up in bedside chair. she is passing gas. No bowel movement yet. Epidural removed over the weekend. pain is controlled. Patient denies any chest pain. She does admit to having some heart palpitations. She has evidence of some sinus tachycardia occasionally on telemetry. Patient's home medications which include a beta maximino was recently restarted. There has been improvement in the heart rate. She has sinus tachycardia with ambulating. Patient is eating a full liquid diet. Denies any nausea or vomiting patient did have a low-grade temp of 100.4. White count 9.8. Sodium 133. IV fluids discontinued today 09/25/2017 patient had bowel movement yesterday she is still passing gas. She' s currently on a full liquid diet. She had a run of V. tach yesterday. This was likely related to her low magnesium level. She was seen evaluated by cardiology. Magnesium has been replaced. Magnesium level is now up 2. Patient also had evidence of fluid overload on chest x-ray cardiology did add IV Lasix. Case has been discussed with both surgical service and cardiology nurse practitioner's. Patient sodium level has dropped to 128. At this time we will be discontinuing the hydrochlorothiazide component of her Hyzaar and cardiology will be giving her a one-time dose of Lasix only for the fluid overload. Patient did complain of some mild burning with urination. On 09/26/2017 patient is alert and oriented in no apparent distress during the last night patient had an episode of severe shortness of breath A team was called and patient received IV Lasix and improved. At this time there is no fever or chills no headache no dizziness no chest pain no shortness of breath at rest no nausea or vomiting no abdominal pain no diarrhea and no urinary symptoms. 09/27/2017 patient is more short of breath today. She's scheduled for heart catheterization. She's found have elevated troponins and evidence of an acute anterior wall CO. Patient has denied chest pain throughout her stay. Troponins are trending down the highs is to get 14.5 and is down to 12.300. Nephrology is following in regards to the hyponatremia sodium is at 122. Added the Samsca. She's on 3 L satting at 98%. Patient will did receive an extra dose of IV Lasix Objective - Vital Signs Vital signs: Vital Signs Temp 98.5 F 09/27/17 08:45 Pulse 80 09/27/17 08:46 Resp 20 09/27/17 08:45 BP 120/78 09/27/17 08:45 Pulse Ox 89 L 09/27/17 08:45 Intake & Output 09/26/17 09/27/17 09/27/17 18:59 06:59 18:59 Intake Total 450 417.079 110 Output Total 153 1030 Balance 450 264.079 -920 Weight 78.4 kg 78.8 kg Intake: IV 110 Sodium Chloride 0.9% 1, 60 000 ml @ 50 mls/hr IV . Q20H [facility] Rx#:[id number] Intake, IV Titration 292.079 Amount Heparin Sodium,Porcine/ 292.079 D5w Pmx 25,000 unit In Dextrose/Water 1 500ml. bag @ 12 UNITS/KG/HR 18. 81 mls/hr IV .Q24H [facility] Rx #:[id number] Oral 450 125 Output: Urine 150 1030 Stool 3 Other: Voiding Method Toilet Toilet Indwelling Catheter Bedside Commode Bedside Commode # Voids 2 3 - Exam Head normocephalic Neck supple Lungs crackles at the bases bilaterally. More short of breath with talking Heart regular rate and rhythm S1-S2, no rub or gallop Abdomen is soft diffuse tenderness nondistended positive bowel sounds no hepatosplenomegaly. Incision site dressing show some blood and dried blood at the distal aspect also on the distal portion of the dressing there is some serous drainage Extremities no edema Neuro alert and orientated to 3 - Labs CBC & Chem 7: 09/27/17 03:14 09/27/17 03:14 Labs: Abnormal Lab Results - Last 24 Hours (Table) 09/26/17 09/26/17 09/26/17 Range/Units 12:40 12:40 14:17 WBC 12.1 H (3.8-10.6) k/uL RBC (3.80-5.40) m/uL Hgb 10.9 L (11.4-16.0) gm/dL Hct 32.7 L (34.0-46.0) % Neutrophils # 9.1 H (1.3-7.7) k/uL APTT (22.0-30.0) sec Sodium (137-145) mmol/L Chloride (98-107) mmol/L Glucose (74-99) mg/dL POC Glucose (mg/dL) (75-99) mg/dL Osmolality 264 L (280-301) mosm/kg Troponin I 14.500 H* (0.000-0.034) ng/mL Total Protein (6.3-8.2) g/dL Albumin (3.5-5.0) g/dL Ur Random Sodium (30-90) mmol/L 09/26/17 09/26/17 09/26/17 Range/Units 16:23 16:28 18:05 WBC (3.8-10.6) k/uL RBC (3.80-5.40) m/uL Hgb (11.4-16.0) gm/dL Hct (34.0-46.0) % Neutrophils # (1.3-7.7) k/uL APTT (22.0-30.0) sec Sodium 124 L (137-145) mmol/L Chloride (98-107) mmol/L Glucose (74-99) mg/dL POC Glucose (mg/dL) 212 H (75-99) mg/dL Osmolality (280-301) mosm/kg Troponin I (0.000-0.034) ng/mL Total Protein (6.3-8.2) g/dL Albumin (3.5-5.0) g/dL Ur Random Sodium 5 L (30-90) mmol/L 09/26/17 09/26/17 09/26/17 Range/Units 18:05 19:45 21:05 WBC (3.8-10.6) k/uL RBC (3.80-5.40) m/uL Hgb (11.4-16.0) gm/dL Hct (34.0-46.0) % Neutrophils # (1.3-7.7) k/uL APTT 37.9 H (22.0-30.0) sec Sodium (137-145) mmol/L Chloride (98-107) mmol/L Glucose (74-99) mg/dL POC Glucose (mg/dL) 188 H (75-99) mg/dL Osmolality (280-301) mosm/kg Troponin I 13.100 H* (0.000-0.034) ng/mL Total Protein (6.3-8.2) g/dL Albumin (3.5-5.0) g/dL Ur Random Sodium (30-90) mmol/L 09/27/17 09/27/17 09/27/17 Range/Units 00:16 03:14 03:14 WBC (3.8-10.6) k/uL RBC 3.40 L (3.80-5.40) m/uL Hgb 9.3 L D (11.4-16.0) gm/dL Hct 27.5 L (34.0-46.0) % Neutrophils # (1.3-7.7) k/uL APTT (22.0-30.0) sec Sodium 122 L (137-145) mmol/L Chloride 89 L (98-107) mmol/L Glucose 164 H (74-99) mg/dL POC Glucose (mg/dL) (75-99) mg/dL Osmolality (280-301) mosm/kg Troponin I 12.300 H* (0.000-0.034) ng/mL Total Protein 5.0 L (6.3-8.2) g/dL Albumin 2.7 L (3.5-5.0) g/dL Ur Random Sodium (30-90) mmol/L 09/27/17 09/27/17 09/27/17 Range/Units 03:14 05:40 10:33 WBC (3.8-10.6) k/uL RBC (3.80-5.40) m/uL Hgb (11.4-16.0) gm/dL Hct (34.0-46.0) % Neutrophils # (1.3-7.7) k/uL APTT 44.7 H 41.3 H (22.0-30.0) sec Sodium (137-145) mmol/L Chloride (98-107) mmol/L Glucose (74-99) mg/dL POC Glucose (mg/dL) 186 H (75-99) mg/dL Osmolality (280-301) mosm/kg Troponin I (0.000-0.034) ng/mL Total Protein (6.3-8.2) g/dL Albumin (3.5-5.0) g/dL Ur Random Sodium (30-90) mmol/L 09/27/17 Range/Units 11:29 WBC (3.8-10.6) k/uL RBC (3.80-5.40) m/uL Hgb (11.4-16.0) gm/dL Hct (34.0-46.0) % Neutrophils # (1.3-7.7) k/uL APTT (22.0-30.0) sec Sodium (137-145) mmol/L Chloride (98-107) mmol/L Glucose (74-99) mg/dL POC Glucose (mg/dL) 243 H (75-99) mg/dL Osmolality (280-301) mosm/kg Troponin I (0.000-0.034) ng/mL Total Protein (6.3-8.2) g/dL Albumin (3.5-5.0) g/dL Ur Random Sodium (30-90) mmol/L Microbiology - Last 24 Hours (Table) 09/25/17 12:30 Urine Culture - Final Urine,Clean Catch Assessment and Plan Assessment: 1. Status post lower anterior resection with a known history of diverticulitis and evidence of a sigmoid colon mass: Patient having bowel movement. Currently nothing by mouth for heart cath 2. Essential hypertension: Blood pressure stable 3. Diabetes mellitus type 2: Continue sliding scale coverage 4. History of irregular heartbeat, possibly PVCs. Patient denies any history of V. tach or atrial fibrillation. Continue atenolol 5. Hyperlipidemia: AST trending down. Cardiology did restart statin 6. History of chronic back pain and herniated disks 7. Patient continues to have a low-grade temp. She is complaining of burning with urination. Urinalysis will be ordered with culture. 8. Acute systolic CHF exacerbation: with x-ray showing mild pulmonary interstitial edema and elevated BNP. Patient given IV Lasix today. Echo shows an EF of 35-40%. There was evidence of wall motion abnormality and mild pulmonary hypertension. Cardiology following 9. Episodes of nonsustained ventricle tachycardia likely related to hypo- magnesium. Continue with telemetry monitoring. Magnesium has been replaced. 10. Hypokalemia resolved 11. Hyponatremia: Sodium level is down to 122. Discontinue hydrochlorothiazide. Continue fluid restriction to 1200 mL per day per nephrology. Nephrology following closely. They have added samsca. 12. Acute anterior wall myocardial infarction: Patient scheduled for heart catheterization today DVT prophylaxis IV heparin I performed an examination of the patient and discussed their management with the physician Liquor Maker. I have reviewed the Physician Liquor Maker's notes and agree with the documented findings and plan of care
--- NOTE | 2017-09-27 13:38 | P.PN ---
Subjective Progress Note Date: 09/27/17 72-year-old female seen this morning sitting up in bed. Patient states that if she sits up in bed feels less short of breath. Continues to denying chest discomfort. Nasal cannula at 3 L 89% sat heart rate this morning in the 70s to 80s blood pressure 133/64. Reports no nausea no vomiting patient is being followed by cardiology service defer to for plan of care. Abdomen is soft nondistended and indwelling Villagomez catheter in place reports of nausea vomiting Patient is postop day 06/23 low anterior resection for sigmoid colon mass pathology report reviewed no malignancy Objective - Vital Signs Vital signs: Vital Signs Temp 98.5 F 09/27/17 08:45 Pulse 80 09/27/17 08:46 Resp 20 09/27/17 08:45 BP 120/78 09/27/17 08:45 Pulse Ox 89 L 09/27/17 08:45 Intake & Output 09/26/17 09/27/17 09/27/17 18:59 06:59 18:59 Intake Total 450 417.079 110 Output Total 153 1030 Balance 450 264.079 -920 Weight 78.4 kg 78.8 kg Intake: IV 110 Sodium Chloride 0.9% 1, 60 000 ml @ 50 mls/hr IV . Q20H DARRELL Rx#:[id number] Intake, IV Titration 292.079 Amount Heparin Sodium,Porcine/ 292.079 D5w Pmx 25,000 unit In Dextrose/Water 1 500ml. bag @ 12 UNITS/KG/HR 18. 81 mls/hr IV .Q24H DARRELL Rx #:[id number] Oral 450 125 Output: Urine 150 1030 Stool 3 Other: Voiding Method Toilet Toilet Indwelling Catheter Bedside Commode Bedside Commode # Voids 2 3 - Exam Physical exam 72-year-old female sitting up in bed reports still feeling short of breath with exertion cannot lay flat" Lungs posterior fine crackles at the bases no wheezing noted nasal cannula 3 L sats are 90% heart S1-S2 audible and regular currently heart rate in the 80s Abdomen soft nontender surgical dressing old drainage noted active bowel tones indwelling Villagomez catheter in place reports no nausea vomiting nondistended Extremities no edema noted to the bilateral lower extremities - Labs CBC & Chem 7: 09/27/17 03:14 09/27/17 03:14 Labs: Abnormal Lab Results - Last 24 Hours (Table) 09/26/17 09/26/17 09/26/17 Range/Units 12:40 12:40 14:17 WBC 12.1 H (3.8-10.6) k/uL RBC (3.80-5.40) m/uL Hgb 10.9 L (11.4-16.0) gm/dL Hct 32.7 L (34.0-46.0) % Neutrophils # 9.1 H (1.3-7.7) k/uL APTT (22.0-30.0) sec Sodium (137-145) mmol/L Chloride (98-107) mmol/L Glucose (74-99) mg/dL POC Glucose (mg/dL) (75-99) mg/dL Osmolality 264 L (280-301) mosm/kg Troponin I 14.500 H* (0.000-0.034) ng/mL Total Protein (6.3-8.2) g/dL Albumin (3.5-5.0) g/dL Ur Random Sodium (30-90) mmol/L 09/26/17 09/26/17 09/26/17 Range/Units 16:23 16:28 18:05 WBC (3.8-10.6) k/uL RBC (3.80-5.40) m/uL Hgb (11.4-16.0) gm/dL Hct (34.0-46.0) % Neutrophils # (1.3-7.7) k/uL APTT (22.0-30.0) sec Sodium 124 L (137-145) mmol/L Chloride (98-107) mmol/L Glucose (74-99) mg/dL POC Glucose (mg/dL) 212 H (75-99) mg/dL Osmolality (280-301) mosm/kg Troponin I (0.000-0.034) ng/mL Total Protein (6.3-8.2) g/dL Albumin (3.5-5.0) g/dL Ur Random Sodium 5 L (30-90) mmol/L 09/26/17 09/26/17 09/26/17 Range/Units 18:05 19:45 21:05 WBC (3.8-10.6) k/uL RBC (3.80-5.40) m/uL Hgb (11.4-16.0) gm/dL Hct (34.0-46.0) % Neutrophils # (1.3-7.7) k/uL APTT 37.9 H (22.0-30.0) sec Sodium (137-145) mmol/L Chloride (98-107) mmol/L Glucose (74-99) mg/dL POC Glucose (mg/dL) 188 H (75-99) mg/dL Osmolality (280-301) mosm/kg Troponin I 13.100 H* (0.000-0.034) ng/mL Total Protein (6.3-8.2) g/dL Albumin (3.5-5.0) g/dL Ur Random Sodium (30-90) mmol/L 09/27/17 09/27/17 09/27/17 Range/Units 00:16 03:14 03:14 WBC (3.8-10.6) k/uL RBC 3.40 L (3.80-5.40) m/uL Hgb 9.3 L D (11.4-16.0) gm/dL Hct 27.5 L (34.0-46.0) % Neutrophils # (1.3-7.7) k/uL APTT (22.0-30.0) sec Sodium 122 L (137-145) mmol/L Chloride 89 L (98-107) mmol/L Glucose 164 H (74-99) mg/dL POC Glucose (mg/dL) (75-99) mg/dL Osmolality (280-301) mosm/kg Troponin I 12.300 H* (0.000-0.034) ng/mL Total Protein 5.0 L (6.3-8.2) g/dL Albumin 2.7 L (3.5-5.0) g/dL Ur Random Sodium (30-90) mmol/L 09/27/1718 09/27/17 Range/Units 03:14 05:40 10:33 WBC (3.8-10.6) k/uL RBC (3.80-5.40) m/uL Hgb (11.4-16.0) gm/dL Hct (34.0-46.0) % Neutrophils # (1.3-7.7) k/uL APTT 44.7 H 41.3 H (22.0-30.0) sec Sodium (137-145) mmol/L Chloride (98-107) mmol/L Glucose (74-99) mg/dL POC Glucose (mg/dL) 186 H (75-99) mg/dL Osmolality (280-301) mosm/kg Troponin I (0.000-0.034) ng/mL Total Protein (6.3-8.2) g/dL Albumin (3.5-5.0) g/dL Ur Random Sodium (30-90) mmol/L 09/27/17 Range/Units 11:29 WBC (3.8-10.6) k/uL RBC (3.80-5.40) m/uL Hgb (11.4-16.0) gm/dL Hct (34.0-46.0) % Neutrophils # (1.3-7.7) k/uL APTT (22.0-30.0) sec Sodium (137-145) mmol/L Chloride (98-107) mmol/L Glucose (74-99) mg/dL POC Glucose (mg/dL) 243 H (75-99) mg/dL Osmolality (280-301) mosm/kg Troponin I (0.000-0.034) ng/mL Total Protein (6.3-8.2) g/dL Albumin (3.5-5.0) g/dL Ur Random Sodium (30-90) mmol/L Microbiology - Last 24 Hours (Table) 09/25/17 12:30 Urine Culture - Final Urine,Clean Catch Assessment and Plan Assessment: Impression History of diverticulitis with severe diverticulosis sigmoid colon mass per previous CAT scan of the abdomen Low anterior resection for a sigmoid colon mass done on September 20 Electrolyte abnormality hypokalemia, hyponatremia suspect due to diuretics corrected resolved Episodes of nonsustained ventricular tachycardia Acute on chronic systolic heart failure EF per echocardiogram between 35 and 40% New-onset systolic heart failure symptomatic Hypo-magnesium Plan Per cardiology scheduled today for a left heart catheterization Continue postop surgical care Encourage the use of the incentive spirometer Pain control DVT and GI prophylaxis Defer to medicine to address medical issues Continue recommendations cardiology service The above impression and plan of care have been discussed and directed by signing physician. Sofie Mcmahan nurse practitioner acting as scribe for signing physician.
[2017-09-27 13:41] LABS: Glucose,Whole Blood 236 mg/dL (75-99)
--- NOTE | 2017-09-27 14:17 | CC ---
CARDIAC CATHETERIZATION REPORT Mrs. Bird is a 72-year-old female, who underwent a sigmoid resection. Patient's postoperative course was then complicated by congestive cardiac failure. Patient's troponin was elevated and EKG showed evidence of anterolateral myocardial infarction. Echocardiogram revealed severely impaired left ventricular systolic function with apical septal and apex being severely hypokinetic. Patient has been treated with diuretics but she persisted in atrial fibrillation. In view of that, the patient was recommended to have a cardiac catheterization for definitive diagnosis. PROCEDURE: The right groin was prepped and draped in the usual manner and the skin was infiltrated with 2% Xylocaine. The right femoral artery was entered using Seldinger technique, a #6-[place]namese sheath was placed in. Selective coronary angiography was then performed in multiple projections. Left ventricular pressures were obtained and abdominal aortogram was performed. Med mu-ism was used. Total service time was 25 minutes. HEMODYNAMICS: Left ventricular end-diastolic pressure is 20 to 24 mmHg prior to angiography. No gradient is noted across the aortic valve. SELECTIVE CORONARY ANGIOGRAPHY: Left main coronary artery is normal and patent. LAD is a good caliber blood vessel and proximally has a 90% stenosis. Beyond that, the LAD is a good caliber blood vessel. Circumflex coronary artery shows eccentric 90% stenosis which appears to be calcified, associated with some heaviness, associated thrombus cannot be entirely excluded. 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 The distal right coronary artery is supplied by the diffuse collaterals from the LAD. The abdominal aortic root injection was performed. Both femoral arteries are patent, though they are relatively small caliber blood vessel. RECOMMENDATIONS: The films were reviewed with Dr. Jha. 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 We will consider putting an Impella device tomorrow and then do the stent placement. This was discussed with the patient and we will discuss with son. No family at present is available here. MMODL / IJN: [id number] /
[2017-09-27 14:23] VITALS: BMI 30.7
[2017-09-27] MEDS ORDERED: MAGNESIUM SULFATE-D5W PMX 1 GM in DEXTROSE/WATER 1 100ML.BAG IVPB ONE (14:53)
[2017-09-27] MEDS ORDERED: POTASSIUM CHLORIDE ER 20 MEQ TAB.ER PO STA (14:53)
[2017-09-27] MEDS: CHOLECALCIFEROL 1,000 UNIT TAB PO SCH (14:55)
[2017-09-27] MEDS: MULTIVITAMINS, THERA 1 EACH TAB PO SCH (14:55)
[2017-09-27] MEDS: FUROSEMIDE 10 MG/ML 4 ML VIAL IV SCH (15:12)
[2017-09-27 17:37] LABS: Glucose,Whole Blood 230 mg/dL (75-99)
[2017-09-27 18:06] LABS: Anion Gap 15 mmol/L; Blood Urea Nitrogen 9 mg/dL (7-17); Calcium 8.5 mg/dL (8.4-10.2); Carbon Dioxide 22 mmol/L (22-30); Chloride 92 mmol/L (98-107); Glucose 211 mg/dL (74-99); Potassium 3.8 mmol/L (3.5-5.1); Sodium 129 mmol/L (137-145)
[2017-09-27] MEDS ORDERED: DEXTROSE/WATER 1 500ML.BAG with HEPARIN SODIUM,PORCINE/D5W PMX 25,000 UNIT IV SCH (18:15)
[2017-09-27] MEDS ORDERED: MENTHOL (NICE) LOZENGE MUCOUS MEM PRN (18:24)
[2017-09-27 18:26] LABS: Appearance,Urine Clear (Clear); Bilirubin,Urine Negative (Negative); Blood,Urine Negative (Negative); Color,Urine Light Yellow; Glucose,Urine (UA) Negative (Negative); Ketones,Urine Negative (Negative); Leukocyte Esterase,Urine Trace (Negative); Mucus,Urine Rare /hpf; Nitrite,Urine Negative (Negative); PH, Urine 5.5 (5.0-8.0); Protein,Urine Negative (Negative); Urobilinogen,Urine <2.0 mg/dL (<2.0); WBC,Urine 4 /hpf (0-5)
[2017-09-27] MEDS: BENZOCAINE/MENTHOL LOZENG 1 EACH LOZENGE MUCOUS MEM PRN ×2 (20:38→21:59)
[2017-09-27] MEDS: LATANOPROST 0.005% OPHTH DROPS 2.5 ML BTL RIGHT EYE SCH (20:41)
[2017-09-27 21:59] LABS: Glucose,Whole Blood 171 mg/dL (75-99)
[2017-09-27] MEDS: ONDANSETRON 4 MG/2 ML VIAL IVP PRN (22:59)
[2017-09-28] MEDS: FUROSEMIDE 10 MG/ML 4 ML VIAL IV SCH (00:48)
[2017-09-28 04:18] VITALS: TEMP 98.7
[2017-09-28 04:47] LABS: Basophils % (A) 0 %; Eosinophils % (A) 0 %; HCT 31.1 % (34.0-46.0); HGB 10.4 gm/dL (11.4-16.0); Lymphocytes # (A) 1.1 k/uL (1.0-4.8); Lymphocytes % (A) 12 %; MCH 27.1 pg (25.0-35.0); MCHC 33.3 g/dL (31.0-37.0); MCV 81.2 fL (80.0-100.0); Mean Platelet Volume 6.6; Monocytes # (A) 0.5 k/uL (0-1.0); Monocytes % (A) 6 %; Neutrophils # (A) 7.3 k/uL (1.3-7.7); Neutrophils % (A) 80 %; Platelet Count 424 k/uL (150-450); RBC 3.83 m/uL (3.80-5.40); RDW 14.5 % (11.5-15.5); WBC 9.1 k/uL (3.8-10.6)
[2017-09-28] MEDS ORDERED: SODIUM BICARB 8.4% 50 ML SYR (1 MEQ/ML) ONE (05:00)
[2017-09-28] MEDS ORDERED: CALCIUM CHLORIDE 100 MG/ML 10 ML SYRINGE ONE (05:00)
[2017-09-28] MEDS ORDERED: MAGNESIUM SULFATE SYG 4.06 MEQ/ML SYRINGE ONE (05:00)
[2017-09-28] MEDS ORDERED: EPINEPHrine 10 ML SYRINGE (0.1 MG/ML) ONE (05:00)
[2017-09-28 05:05] LABS: ALT 34 U/L (9-52); AST 22 U/L (14-36); Albumin 3.1 g/dL (3.5-5.0); Alkaline Phosphatase 58 U/L (38-126); Anion Gap 14 mmol/L; Blood Urea Nitrogen 8 mg/dL (7-17); Calcium 8.4 mg/dL (8.4-10.2); Carbon Dioxide 26 mmol/L (22-30); Chloride 92 mmol/L (98-107); Glucose 209 mg/dL (74-99); Magnesium 1.5 mg/dL (1.6-2.3); Phosphorus 4.7 mg/dL (2.5-4.5); Potassium 3.9 mmol/L (3.5-5.1); Sodium 132 mmol/L (137-145); Total Bilirubin 0.5 mg/dL (0.2-1.3); Total Protein 5.7 g/dL (6.3-8.2)
[2017-09-28 06:01] LABS: Glucose,Whole Blood 230 mg/dL (75-99)
[2017-09-28 06:15] VITALS: BP 124/74; PULSE 116; RESP 24
--- NOTE | 2017-09-28 06:27 | ED ---
Medical Decision Making - Medical Decision Making I responded to a CODE BLUE called overhead. Upon arrival the patient was found to be in cardiac arrest. CPR was in progress and the patient was actively being bagged. One dose of epi had been given at that time for PE 8. The patient reportedly was getting a bath when she suddenly stated that she did not feel good and wanted to 1 and arrest. I was able to intubate the patient at bedside with a 7.5 ET tube and Mac 4 blade. The patient had good oxygen saturations and bilateral breath sounds at that time. 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 She was to go for an Imp[place] placement sometime today. CPR was continued for multiple rounds and PDA was found. Epi was given. An amp of bicarb, magnesium, and calcium were also given. Morning labs were obtained and showed just a mild hypomagnesemia of 1.5 however no other abnormal findings. PA with eventually turned into asystole. Bedside ultrasound was performed however was limited due to the vascular probe and not having a phased array probe. There is no obvious sign of pericardial effusion and no mechanical activity of the heart. Another round of CPR was performed with epinephrine and after pulse checked the patient was still found to be in asystole. After being coated for 20 minutes the decision was made to and the CODE BLUE and pronounced the patient at 5:58 AM. - Lab Data Result diagrams: 09/28/17 04:35 09/28/17 04:35 Lab Results 09/13/17 09/20/17 09/20/17 Range/Units 15:04 08:48 08:50 WBC (3.8-10.6) k/uL RBC (3.80-5.40) m/uL Hgb (11.4-16.0) gm/dL Hct (34.0-46.0) % MCV (80.0-100.0) fL MCH (25.0-35.0) pg MCHC (31.0-37.0) g/dL RDW (11.5-15.5) % Plt Count (150-450) k/uL Neutrophils % % Lymphocytes % % Monocytes % % Eosinophils % % Basophils % % Neutrophils # (1.3-7.7) k/uL Lymphocytes # (1.0-4.8) k/uL Monocytes # (0-1.0) k/uL Eosinophils # (0-0.7) k/uL Basophils # (0-0.2) k/uL Hypochromasia PT (9.0-12.0) sec INR (<1.2) APTT (22.0-30.0) sec Sodium (137-145) mmol/L Potassium (3.5-5.1) mmol/L Chloride (98-107) mmol/L Carbon Dioxide (22-30) mmol/L Anion Gap mmol/L BUN (7-17) mg/dL Creatinine (0.52-1.04) mg/dL Est GFR (CKD-EPI)AfAm (>60 ml/min/1.73 sqM) Est GFR (CKD-EPI)NonAf (>60 ml/min/1.73 sqM) Glucose (74-99) mg/dL POC Glucose (mg/dL) 190 H (75-99) mg/dL POC Glu Ve Teacher ID Partipilo, [place] [address] Glu mg/dL Hemoglobin A1c (4.0-6.0) % Osmolality (280-301) mosm/kg Calcium (8.4-10.2) mg/dL Phosphorus (2.5-4.5) mg/dL Magnesium (1.6-2.3) mg/dL Total Bilirubin (0.2-1.3) mg/dL AST (14-36) U/L ALT (9-52) U/L Alkaline Phosphatase (38-126) U/L Troponin I (0.000-0.034) ng/mL NT-Pro-B Natriuret Pep pg/mL Total Protein (6.3-8.2) g/dL Albumin (3.5-5.0) g/dL TSH (0.465-4.680) mIU/L Urine Color Urine Appearance (Clear) Urine pH (5.0-8.0) Ur Specific [place] (1.001-1.035) Urine Protein (Negative) Urine Glucose (UA) (Negative) Urine Ketones (Negative) Urine Blood (Negative) Urine Nitrite (Negative) Urine Bilirubin (Negative) Urine Urobilinogen (<2.0) mg/dL Ur Leukocyte Esterase (Negative) Urine WBC (0-5) /hpf Urine Mucus (None) /hpf Urine Osmolality (50-1400) mosm/kg Ur Random Sodium (30-90) mmol/L Blood Type A Positive Blood Type Confirm A Positive Blood Type Recheck CABO Indicated Antibody Screen NEGATIVE Spec Expiration Date 09/22/2017230309/20/17 09/20/17 09/20/17 Range/Units 11:44 12:38 12:38 WBC 13.0 H (3.8-10.6) k/uL RBC 4.77 (3.80-5.40) m/uL Hgb 13.2 (11.4-16.0) gm/dL Hct 39.3 (34.0-46.0) % MCV 82.5 (80.0-100.0) fL MCH 27.6 (25.0-35.0) pg MCHC 33.5 (31.0-37.0) g/dL RDW 14.5 (11.5-15.5) % Plt Count 288 (150-450) k/uL Neutrophils % 87 % Lymphocytes % 10 % Monocytes % 2 % Eosinophils % 0 % Basophils % 0 % Neutrophils # 11.3 H (1.3-7.7) k/uL Lymphocytes # 1.3 (1.0-4.8) k/uL Monocytes # 0.3 (0-1.0) k/uL Eosinophils # 0.0 (0-0.7) k/uL Basophils # 0.0 (0-0.2) k/uL Hypochromasia PT (9.0-12.0) sec INR (<1.2) APTT (22.0-30.0) sec Sodium 136 L (137-145) mmol/L Potassium 3.9 (3.5-5.1) mmol/L Chloride 97 L (98-107) mmol/L Carbon Dioxide 27 (22-30) mmol/L Anion Gap 12 mmol/L BUN 7 (7-17) mg/dL Creatinine 0.67 (0.52-1.04) mg/dL Est GFR (CKD-EPI)AfAm >90 (>60 ml/min/1.73 sqM) Est GFR (CKD-EPI)NonAf 87 (>60 ml/min/1.73 sqM) Glucose 214 H (74-99) mg/dL POC Glucose (mg/dL) 187 H (75-99) mg/dL POC Glu Ve Teacher ID Agnieszka Rivers [address] Glu mg/dL Hemoglobin A1c (4.0-6.0) % Osmolality (280-301) mosm/kg Calcium 9.5 (8.4-10.2) mg/dL Phosphorus (2.5-4.5) mg/dL Magnesium (1.6-2.3) mg/dL Total Bilirubin (0.2-1.3) mg/dL AST (14-36) U/L ALT (9-52) U/L Alkaline Phosphatase (38-126) U/L Troponin I (0.000-0.034) ng/mL NT-Pro-B Natriuret Pep pg/mL Total Protein (6.3-8.2) g/dL Albumin (3.5-5.0) g/dL TSH (0.465-4.680) mIU/L Urine Color Urine Appearance (Clear) Urine pH (5.0-8.0) Ur Specific [place] (1.001-1.035) Urine Protein (Negative) Urine Glucose (UA) (Negative) Urine Ketones (Negative) Urine Blood (Negative) Urine Nitrite (Negative) Urine Bilirubin (Negative) Urine Urobilinogen (<2.0) mg/dL Ur Leukocyte Esterase (Negative) Urine WBC (0-5) /hpf Urine Mucus (None) /hpf Urine Osmolality (50-1400) mosm/kg Ur Random Sodium (30-90) mmol/L Blood Type Blood Type Confirm Blood Type Recheck Antibody Screen Spec Expiration Date 09/20/17 09/20/17 09/20/17 Range/Units 12:38 17:08 20:58 WBC (3.8-10.6) k/uL RBC (3.80-5.40) m/uL Hgb (11.4-16.0) gm/dL Hct (34.0-46.0) % MCV (80.0-100.0) fL MCH (25.0-35.0) pg MCHC (31.0-37.0) g/dL RDW (11.5-15.5) % Plt Count (150-450) k/uL Neutrophils % % Lymphocytes % % Monocytes % % Eosinophils % % Basophils % % Neutrophils # (1.3-7.7) k/uL Lymphocytes # (1.0-4.8) k/uL Monocytes # (0-1.0) k/uL Eosinophils # (0-0.7) k/uL Basophils # (0-0.2) k/uL Hypochromasia PT (9.0-12.0) sec INR (<1.2) APTT (22.0-30.0) sec Sodium (137-145) mmol/L Potassium (3.5-5.1) mmol/L Chloride (98-107) mmol/L Carbon Dioxide (22-30) mmol/L Anion Gap mmol/L BUN (7-17) mg/dL Creatinine (0.52-1.04) mg/dL Est GFR (CKD-EPI)AfAm (>60 ml/min/1.73 sqM) Est GFR (CKD-EPI)NonAf (>60 ml/min/1.73 sqM) Glucose (74-99) mg/dL POC Glucose (mg/dL) 284 H 277 H (75-99) mg/dL POC Glu Ve Teacher Guillermina Rahman Brenda [address] Glu mg/dL 151 Hemoglobin A1c 6.9 H (4.0-6.0) % Osmolality (280-301) mosm/kg Calcium (8.4-10.2) mg/dL Phosphorus (2.5-4.5) mg/dL Magnesium (1.6-2.3) mg/dL Total Bilirubin (0.2-1.3) mg/dL AST (14-36) U/L ALT (9-52) U/L Alkaline Phosphatase (38-126) U/L Troponin I (0.000-0.034) ng/mL NT-Pro-B Natriuret Pep pg/mL Total Protein (6.3-8.2) g/dL Albumin (3.5-5.0) g/dL TSH (0.465-4.680) mIU/L Urine Color Urine Appearance (Clear) Urine pH (5.0-8.0) Ur Specific [place] (1.001-1.035) Urine Protein (Negative) Urine Glucose (UA) (Negative) Urine Ketones (Negative) Urine Blood (Negative) Urine Nitrite (Negative) Urine Bilirubin (Negative) Urine Urobilinogen (<2.0) mg/dL Ur Leukocyte Esterase (Negative) Urine WBC (0-5) /hpf Urine Mucus (None) /hpf Urine Osmolality (50-1400) mosm/kg Ur Random Sodium (30-90) mmol/L Blood Type Blood Type Confirm Blood Type Recheck Antibody Screen Spec Expiration Date 09/21/17 09/21/17 09/21/17 Range/Units 07:25 07:25 08:12 WBC 13.0 H (3.8-10.6) k/uL RBC 3.80 (3.80-5.40) m/uL Hgb 10.4 L (11.4-16.0) gm/dL Hct 31.4 L (34.0-46.0) % MCV 82.8 (80.0-100.0) fL MCH 27.3 (25.0-35.0) pg MCHC 33.0 (31.0-37.0) g/dL RDW 14.4 (11.5-15.5) % Plt Count 261 (150-450) k/uL Neutrophils % 84 % Lymphocytes % 10 % Monocytes % 5 % Eosinophils % 0 % Basophils % 0 % Neutrophils # 10.9 H (1.3-7.7) k/uL Lymphocytes # 1.3 (1.0-4.8) k/uL Monocytes # 0.7 (0-1.0) k/uL Eosinophils # 0.0 (0-0.7) k/uL Basophils # 0.0 (0-0.2) k/uL Hypochromasia PT (9.0-12.0) sec INR (<1.2) APTT (22.0-30.0) sec Sodium 134 L (137-145) mmol/L Potassium 4.4 (3.5-5.1) mmol/L Chloride 99 (98-107) mmol/L Carbon Dioxide 24 (22-30) mmol/L Anion Gap 11 mmol/L BUN 11 (7-17) mg/dL Creatinine 0.74 (0.52-1.04) mg/dL Est GFR (CKD-EPI)AfAm >90 (>60 ml/min/1.73 sqM) Est GFR (CKD-EPI)NonAf 81 (>60 ml/min/1.73 sqM) Glucose 207 H (74-99) mg/dL POC Glucose (mg/dL) 204 H (75-99) mg/dL POC Glu Ve Teacher ID Guillermina Davalos [address] Glu mg/dL Hemoglobin A1c (4.0-6.0) % Osmolality (280-301) mosm/kg Calcium 9.2 (8.4-10.2) mg/dL Phosphorus (2.5-4.5) mg/dL Magnesium (1.6-2.3) mg/dL Total Bilirubin 0.4 (0.2-1.3) mg/dL AST 25 (14-36) U/L ALT 26 (9-52) U/L Alkaline Phosphatase 43 (38-126) U/L Troponin I (0.000-0.034) ng/mL NT-Pro-B Natriuret Pep pg/mL Total Protein 5.6 L (6.3-8.2) g/dL Albumin 3.2 L (3.5-5.0) g/dL TSH (0.465-4.680) mIU/L Urine Color Urine Appearance (Clear) Urine pH (5.0-8.0) Ur Specific [place] (1.001-1.035) Urine Protein (Negative) Urine Glucose (UA) (Negative) Urine Ketones (Negative) Urine Blood (Negative) Urine Nitrite (Negative) Urine Bilirubin (Negative) Urine Urobilinogen (<2.0) mg/dL Ur Leukocyte Esterase (Negative) Urine WBC (0-5) /hpf Urine Mucus (None) /hpf Urine Osmolality (50-1400) mosm/kg Ur Random Sodium (30-90) mmol/L Blood Type Blood Type Confirm Blood Type Recheck Antibody Screen Spec Expiration Date 09/21/17 09/21/17 09/21/17 Range/Units 11:55 17:02 20:52 WBC (3.8-10.6) k/uL RBC (3.80-5.40) m/uL Hgb (11.4-16.0) gm/dL Hct (34.0-46.0) % MCV (80.0-100.0) fL MCH (25.0-35.0) pg MCHC (31.0-37.0) g/dL RDW (11.5-15.5) % Plt Count (150-450) k/uL Neutrophils % % Lymphocytes % % Monocytes % % Eosinophils % % Basophils % % Neutrophils # (1.3-7.7) k/uL Lymphocytes # (1.0-4.8) k/uL Monocytes # (0-1.0) k/uL Eosinophils # (0-0.7) k/uL Basophils # (0-0.2) k/uL Hypochromasia PT (9.0-12.0) sec INR (<1.2) APTT (22.0-30.0) sec Sodium (137-145) mmol/L Potassium (3.5-5.1) mmol/L Chloride (98-107) mmol/L Carbon Dioxide (22-30) mmol/L Anion Gap mmol/L BUN (7-17) mg/dL Creatinine (0.52-1.04) mg/dL Est GFR (CKD-EPI)AfAm (>60 ml/min/1.73 sqM) Est GFR (CKD-EPI)NonAf (>60 ml/min/1.73 sqM) Glucose (74-99) mg/dL POC Glucose (mg/dL) 208 H 108 H 148 H (75-99) mg/dL POC Glu Ve Teacher Guillermina Rahman, Yoselin Lui [address] Glu mg/dL Hemoglobin A1c (4.0-6.0) % Osmolality (280-301) mosm/kg Calcium (8.4-10.2) mg/dL Phosphorus (2.5-4.5) mg/dL Magnesium (1.6-2.3) mg/dL Total Bilirubin (0.2-1.3) mg/dL AST (14-36) U/L ALT (9-52) U/L Alkaline Phosphatase (38-126) U/L Troponin I (0.000-0.034) ng/mL NT-Pro-B Natriuret Pep pg/mL Total Protein (6.3-8.2) g/dL Albumin (3.5-5.0) g/dL TSH (0.465-4.680) mIU/L Urine Color Urine Appearance (Clear) Urine pH (5.0-8.0) Ur Specific [place] (1.001-1.035) Urine Protein (Negative) Urine Glucose (UA) (Negative) Urine Ketones (Negative) Urine Blood (Negative) Urine Nitrite (Negative) Urine Bilirubin (Negative) Urine Urobilinogen (<2.0) mg/dL Ur Leukocyte Esterase (Negative) Urine WBC (0-5) /hpf Urine Mucus (None) /hpf Urine Osmolality (50-1400) mosm/kg Ur Random Sodium (30-90) mmol/L Blood Type Blood Type Confirm Blood Type Recheck Antibody Screen Spec Expiration Date 09/22/17 09/22/17 09/22/17 Range/Units 06:31 06:31 07:01 WBC 11.0 H (3.8-10.6) k/uL RBC 4.12 (3.80-5.40) m/uL Hgb 11.4 (11.4-16.0) gm/dL Hct 34.3 (34.0-46.0) % MCV 83.2 (80.0-100.0) fL MCH 27.6 (25.0-35.0) pg MCHC 33.2 (31.0-37.0) g/dL RDW 14.4 (11.5-15.5) % Plt Count 228 (150-450) k/uL Neutrophils % 73 % Lymphocytes % 20 % Monocytes % 5 % Eosinophils % 1 % Basophils % 0 % Neutrophils # 8.0 H (1.3-7.7) k/uL Lymphocytes # 2.2 (1.0-4.8) k/uL Monocytes # 0.6 (0-1.0) k/uL Eosinophils # 0.1 (0-0.7) k/uL Basophils # 0.0 (0-0.2) k/uL Hypochromasia PT (9.0-12.0) sec INR (<1.2) APTT (22.0-30.0) sec Sodium 137 (137-145) mmol/L Potassium 3.8 (3.5-5.1) mmol/L Chloride 101 (98-107) mmol/L Carbon Dioxide 22 (22-30) mmol/L Anion Gap 14 mmol/L BUN 5 L (7-17) mg/dL Creatinine 0.54 (0.52-1.04) mg/dL Est GFR (CKD-EPI)AfAm >90 (>60 ml/min/1.73 sqM) Est GFR (CKD-EPI)NonAf >90 (>60 ml/min/1.73 sqM) Glucose 162 H (74-99) mg/dL POC Glucose (mg/dL) 169 H (75-99) mg/dL POC Glu Ve Teacher ID Evon Levin [address] Glu mg/dL Hemoglobin A1c (4.0-6.0) % Osmolality (280-301) mosm/kg Calcium 9.0 (8.4-10.2) mg/dL Phosphorus (2.5-4.5) mg/dL Magnesium (1.6-2.3) mg/dL Total Bilirubin 0.4 (0.2-1.3) mg/dL AST 43 H (14-36) U/L ALT 31 (9-52) U/L Alkaline Phosphatase 51 (38-126) U/L Troponin I (0.000-0.034) ng/mL NT-Pro-B Natriuret Pep pg/mL Total Protein 5.9 L (6.3-8.2) g/dL Albumin 3.4 L (3.5-5.0) g/dL TSH (0.465-4.680) mIU/L Urine Color Urine Appearance (Clear) Urine pH (5.0-8.0) Ur Specific [place] (1.001-1.035) Urine Protein (Negative) Urine Glucose (UA) (Negative) Urine Ketones (Negative) Urine Blood (Negative) Urine Nitrite (Negative) Urine Bilirubin (Negative) Urine Urobilinogen (<2.0) mg/dL Ur Leukocyte Esterase (Negative) Urine WBC (0-5) /hpf Urine Mucus (None) /hpf Urine Osmolality (50-1400) mosm/kg Ur Random Sodium (30-90) mmol/L Blood Type Blood Type Confirm Blood Type Recheck Antibody Screen Spec Expiration Date 09/22/17 09/22/17 09/22/17 Range/Units 11:26 17:25 20:37 WBC (3.8-10.6) k/uL RBC (3.80-5.40) m/uL Hgb (11.4-16.0) gm/dL Hct (34.0-46.0) % MCV (80.0-100.0) fL MCH (25.0-35.0) pg MCHC (31.0-37.0) g/dL RDW (11.5-15.5) % Plt Count (150-450) k/uL Neutrophils % % Lymphocytes % % Monocytes % % Eosinophils % % Basophils % % Neutrophils # (1.3-7.7) k/uL Lymphocytes # (1.0-4.8) k/uL Monocytes # (0-1.0) k/uL Eosinophils # (0-0.7) k/uL Basophils # (0-0.2) k/uL Hypochromasia PT (9.0-12.0) sec INR (<1.2) APTT (22.0-30.0) sec Sodium (137-145) mmol/L Potassium (3.5-5.1) mmol/L Chloride (98-107) mmol/L Carbon Dioxide (22-30) mmol/L Anion Gap mmol/L BUN (7-17) mg/dL Creatinine (0.52-1.04) mg/dL Est GFR (CKD-EPI)AfAm (>60 ml/min/1.73 sqM) Est GFR (CKD-EPI)NonAf (>60 ml/min/1.73 sqM) Glucose (74-99) mg/dL POC Glucose (mg/dL) 186 H 200 H 189 H (75-99) mg/dL POC Glu Ve Teacher ID Arcadio, Sheridan Arcadio, Sheridan Melissa, Yoselin [address] Glu mg/dL Hemoglobin A1c (4.0-6.0) % Osmolality (280-301) mosm/kg Calcium (8.4-10.2) mg/dL Phosphorus (2.5-4.5) mg/dL Magnesium (1.6-2.3) mg/dL Total Bilirubin (0.2-1.3) mg/dL AST (14-36) U/L ALT (9-52) U/L Alkaline Phosphatase (38-126) U/L Troponin I (0.000-0.034) ng/mL NT-Pro-B Natriuret Pep pg/mL Total Protein (6.3-8.2) g/dL Albumin (3.5-5.0) g/dL TSH (0.465-4.680) mIU/L Urine Color Urine Appearance (Clear) Urine pH (5.0-8.0) Ur Specific [place] (1.001-1.035) Urine Protein (Negative) Urine Glucose (UA) (Negative) Urine Ketones (Negative) Urine Blood (Negative) Urine Nitrite (Negative) Urine Bilirubin (Negative) Urine Urobilinogen (<2.0) mg/dL Ur Leukocyte Esterase (Negative) Urine WBC (0-5) /hpf Urine Mucus (None) /hpf Urine Osmolality (50-1400) mosm/kg Ur Random Sodium (30-90) mmol/L Blood Type Blood Type Confirm Blood Type Recheck Antibody Screen Spec Expiration Date 09/23/17 09/23/17 09/23/17 Range/Units 06:37 06:37 06:57 WBC 9.8 (3.8-10.6) k/uL RBC 4.06 (3.80-5.40) m/uL Hgb 10.9 L (11.4-16.0) gm/dL Hct 33.7 L (34.0-46.0) % MCV 83.0 (80.0-100.0) fL MCH 26.9 (25.0-35.0) pg MCHC 32.4 (31.0-37.0) g/dL RDW 14.6 (11.5-15.5) % Plt Count 275 (150-450) k/uL Neutrophils % 63 % Lymphocytes % 28 % Monocytes % 6 % Eosinophils % 2 % Basophils % 0 % Neutrophils # 6.2 (1.3-7.7) k/uL Lymphocytes # 2.7 (1.0-4.8) k/uL Monocytes # 0.5 (0-1.0) k/uL Eosinophils # 0.2 (0-0.7) k/uL Basophils # 0.0 (0-0.2) k/uL Hypochromasia PT (9.0-12.0) sec INR (<1.2) APTT (22.0-30.0) sec Sodium 132 L (137-145) mmol/L Potassium 3.9 (3.5-5.1) mmol/L Chloride 98 (98-107) mmol/L Carbon Dioxide 23 (22-30) mmol/L Anion Gap 11 mmol/L BUN 7 (7-17) mg/dL Creatinine 0.66 (0.52-1.04) mg/dL Est GFR (CKD-EPI)AfAm >90 (>60 ml/min/1.73 sqM) Est GFR (CKD-EPI)NonAf 87 (>60 ml/min/1.73 sqM) Glucose 157 H (74-99) mg/dL POC Glucose (mg/dL) 166 H (75-99) mg/dL POC Glu Ve Teacher ID Sheridan Ervin [address] Glu mg/dL Hemoglobin A1c (4.0-6.0) % Osmolality (280-301) mosm/kg Calcium 8.2 L (8.4-10.2) mg/dL Phosphorus (2.5-4.5) mg/dL Magnesium (1.6-2.3) mg/dL Total Bilirubin 0.7 (0.2-1.3) mg/dL AST 26 (14-36) U/L ALT 31 (9-52) U/L Alkaline Phosphatase 46 (38-126) U/L Troponin I (0.000-0.034) ng/mL NT-Pro-B Natriuret Pep pg/mL Total Protein 5.3 L (6.3-8.2) g/dL Albumin 3.0 L (3.5-5.0) g/dL TSH (0.465-4.680) mIU/L Urine Color Urine Appearance (Clear) Urine pH (5.0-8.0) Ur Specific [place] (1.001-1.035) Urine Protein (Negative) Urine Glucose (UA) (Negative) Urine Ketones (Negative) Urine Blood (Negative) Urine Nitrite (Negative) Urine Bilirubin (Negative) Urine Urobilinogen (<2.0) mg/dL Ur Leukocyte Esterase (Negative) Urine WBC (0-5) /hpf Urine Mucus (None) /hpf Urine Osmolality (50-1400) mosm/kg Ur Random Sodium (30-90) mmol/L Blood Type Blood Type Confirm Blood Type Recheck Antibody Screen Spec Expiration Date 09/23/17 09/23/17 09/23/17 Range/Units 11:12 16:56 20:17 WBC (3.8-10.6) k/uL RBC (3.80-5.40) m/uL Hgb (11.4-16.0) gm/dL Hct (34.0-46.0) % MCV (80.0-100.0) fL MCH (25.0-35.0) pg MCHC (31.0-37.0) g/dL RDW (11.5-15.5) % Plt Count (150-450) k/uL Neutrophils % % Lymphocytes % % Monocytes % % Eosinophils % % Basophils % % Neutrophils # (1.3-7.7) k/uL Lymphocytes # (1.0-4.8) k/uL Monocytes # (0-1.0) k/uL Eosinophils # (0-0.7) k/uL Basophils # (0-0.2) k/uL Hypochromasia PT (9.0-12.0) sec INR (<1.2) APTT (22.0-30.0) sec Sodium (137-145) mmol/L Potassium (3.5-5.1) mmol/L Chloride (98-107) mmol/L Carbon Dioxide (22-30) mmol/L Anion Gap mmol/L BUN (7-17) mg/dL Creatinine (0.52-1.04) mg/dL Est GFR (CKD-EPI)AfAm (>60 ml/min/1.73 sqM) Est GFR (CKD-EPI)NonAf (>60 ml/min/1.73 sqM) Glucose (74-99) mg/dL POC Glucose (mg/dL) 198 H 192 H 242 H (75-99) mg/dL POC Glu Ve Teacher ID Arcadio, Sheridan Ervin, Yoselin Matthews [address] Glu mg/dL Hemoglobin A1c (4.0-6.0) % Osmolality (280-301) mosm/kg Calcium (8.4-10.2) mg/dL Phosphorus (2.5-4.5) mg/dL Magnesium (1.6-2.3) mg/dL Total Bilirubin (0.2-1.3) mg/dL AST (14-36) U/L ALT (9-52) U/L Alkaline Phosphatase (38-126) U/L Troponin I (0.000-0.034) ng/mL NT-Pro-B Natriuret Pep pg/mL Total Protein (6.3-8.2) g/dL Albumin (3.5-5.0) g/dL TSH (0.465-4.680) mIU/L Urine Color Urine Appearance (Clear) Urine pH (5.0-8.0) Ur Specific [place] (1.001-1.035) Urine Protein (Negative) Urine Glucose (UA) (Negative) Urine Ketones (Negative) Urine Blood (Negative) Urine Nitrite (Negative) Urine Bilirubin (Negative) Urine Urobilinogen (<2.0) mg/dL Ur Leukocyte Esterase (Negative) Urine WBC (0-5) /hpf Urine Mucus (None) /hpf Urine Osmolality (50-1400) mosm/kg Ur Random Sodium (30-90) mmol/L Blood Type Blood Type Confirm Blood Type Recheck Antibody Screen Spec Expiration Date 09/24/17 09/24/17 09/24/17 Range/Units 06:20 06:20 06:20 WBC 9.8 (3.8-10.6) k/uL RBC 3.75 L (3.80-5.40) m/uL Hgb 10.4 L (11.4-16.0) gm/dL Hct 30.6 L (34.0-46.0) % MCV 81.7 (80.0-100.0) fL MCH 27.8 (25.0-35.0) pg MCHC 34.1 (31.0-37.0) g/dL RDW 14.5 (11.5-15.5) % Plt Count 262 (150-450) k/uL Neutrophils % 72 % Lymphocytes % 19 % Monocytes % 6 % Eosinophils % 2 % Basophils % 0 % Neutrophils # 7.1 (1.3-7.7) k/uL Lymphocytes # 1.8 (1.0-4.8) k/uL Monocytes # 0.6 (0-1.0) k/uL Eosinophils # 0.2 (0-0.7) k/uL Basophils # 0.0 (0-0.2) k/uL Hypochromasia PT (9.0-12.0) sec INR (<1.2) APTT (22.0-30.0) sec Sodium 133 L (137-145) mmol/L Potassium 3.6 (3.5-5.1) mmol/L Chloride 99 (98-107) mmol/L Carbon Dioxide 23 (22-30) mmol/L Anion Gap 11 mmol/L BUN 5 L (7-17) mg/dL Creatinine 0.60 (0.52-1.04) mg/dL Est GFR (CKD-EPI)AfAm >90 (>60 ml/min/1.73 sqM) Est GFR (CKD-EPI)NonAf >90 (>60 ml/min/1.73 sqM) Glucose 161 H (74-99) mg/dL POC Glucose (mg/dL) (75-99) mg/dL POC Glu Ve Teacher ID Estimated Ave Glu mg/dL Hemoglobin A1c (4.0-6.0) % Osmolality (280-301) mosm/kg Calcium 8.7 (8.4-10.2) mg/dL Phosphorus (2.5-4.5) mg/dL Magnesium (1.6-2.3) mg/dL Total Bilirubin 0.5 (0.2-1.3) mg/dL AST 154 H (14-36) U/L ALT 41 (9-52) U/L Alkaline Phosphatase 46 (38-126) U/L Troponin I (0.000-0.034) ng/mL NT-Pro-B Natriuret Pep pg/mL Total Protein 5.3 L (6.3-8.2) g/dL Albumin 2.8 L (3.5-5.0) g/dL TSH 1.070 (0.465-4.680) mIU/L Urine Color Urine Appearance (Clear) Urine pH (5.0-8.0) Ur Specific [place] (1.001-1.035) Urine Protein (Negative) Urine Glucose (UA) (Negative) Urine Ketones (Negative) Urine Blood (Negative) Urine Nitrite (Negative) Urine Bilirubin (Negative) Urine Urobilinogen (<2.0) mg/dL Ur Leukocyte Esterase (Negative) Urine WBC (0-5) /hpf Urine Mucus (None) /hpf Urine Osmolality (50-1400) mosm/kg Ur Random Sodium (30-90) mmol/L Blood Type Blood Type Confirm Blood Type Recheck Antibody Screen Spec Expiration Date 09/24/17 09/24/17 09/24/17 Range/Units 06:20 06:50 10:58 WBC (3.8-10.6) k/uL RBC (3.80-5.40) m/uL Hgb (11.4-16.0) gm/dL Hct (34.0-46.0) % MCV (80.0-100.0) fL MCH (25.0-35.0) pg MCHC (31.0-37.0) g/dL RDW (11.5-15.5) % Plt Count (150-450) k/uL Neutrophils % % Lymphocytes % % Monocytes % % Eosinophils % % Basophils % % Neutrophils # (1.3-7.7) k/uL Lymphocytes # (1.0-4.8) k/uL Monocytes # (0-1.0) k/uL Eosinophils # (0-0.7) k/uL Basophils # (0-0.2) k/uL Hypochromasia PT (9.0-12.0) sec INR (<1.2) APTT (22.0-30.0) sec Sodium (137-145) mmol/L Potassium (3.5-5.1) mmol/L Chloride (98-107) mmol/L Carbon Dioxide (22-30) mmol/L Anion Gap mmol/L BUN (7-17) mg/dL Creatinine (0.52-1.04) mg/dL Est GFR (CKD-EPI)AfAm (>60 ml/min/1.73 sqM) Est GFR (CKD-EPI)NonAf (>60 ml/min/1.73 sqM) Glucose (74-99) mg/dL POC Glucose (mg/dL) 169 H 203 H (75-99) mg/dL POC Glu Ve Teacher ID Jannette Baker Estimated [address] Glu mg/dL Hemoglobin A1c (4.0-6.0) % Osmolality (280-301) mosm/kg Calcium (8.4-10.2) mg/dL Phosphorus (2.5-4.5) mg/dL Magnesium 1.3 L (1.6-2.3) mg/dL Total Bilirubin (0.2-1.3) mg/dL AST (14-36) U/L ALT (9-52) U/L Alkaline Phosphatase (38-126) U/L Troponin I (0.000-0.034) ng/mL NT-Pro-B Natriuret Pep pg/mL Total Protein (6.3-8.2) g/dL Albumin (3.5-5.0) g/dL TSH (0.465-4.680) mIU/L Urine Color Urine Appearance (Clear) Urine pH (5.0-8.0) Ur Specific [place] (1.001-1.035) Urine Protein (Negative) Urine Glucose (UA) (Negative) Urine Ketones (Negative) Urine Blood (Negative) Urine Nitrite (Negative) Urine Bilirubin (Negative) Urine Urobilinogen (<2.0) mg/dL Ur Leukocyte Esterase (Negative) Urine WBC (0-5) /hpf Urine Mucus (None) /hpf Urine Osmolality (50-1400) mosm/kg Ur Random Sodium (30-90) mmol/L Blood Type Blood Type Confirm Blood Type Recheck Antibody Screen Spec Expiration Date 09/24/17 09/24/17 09/24/17 Range/Units 17:12 20:02 21:01 WBC (3.8-10.6) k/uL RBC (3.80-5.40) m/uL Hgb (11.4-16.0) gm/dL Hct (34.0-46.0) % MCV (80.0-100.0) fL MCH (25.0-35.0) pg MCHC (31.0-37.0) g/dL RDW (11.5-15.5) % Plt Count (150-450) k/uL Neutrophils % % Lymphocytes % % Monocytes % % Eosinophils % % Basophils % % Neutrophils # (1.3-7.7) k/uL Lymphocytes # (1.0-4.8) k/uL Monocytes # (0-1.0) k/uL Eosinophils # (0-0.7) k/uL Basophils # (0-0.2) k/uL Hypochromasia PT (9.0-12.0) sec INR (<1.2) APTT (22.0-30.0) sec Sodium (137-145) mmol/L Potassium (3.5-5.1) mmol/L Chloride (98-107) mmol/L Carbon Dioxide (22-30) mmol/L Anion Gap mmol/L BUN (7-17) mg/dL Creatinine (0.52-1.04) mg/dL Est GFR (CKD-EPI)AfAm (>60 ml/min/1.73 sqM) Est GFR (CKD-EPI)NonAf (>60 ml/min/1.73 sqM) Glucose (74-99) mg/dL POC Glucose (mg/dL) 190 H 196 H (75-99) mg/dL POC Glu Ve Teacher ID Mirtha Gaitan Estimated Ave Glu mg/dL Hemoglobin A1c (4.0-6.0) % Osmolality (280-301) mosm/kg Calcium (8.4-10.2) mg/dL Phosphorus (2.5-4.5) mg/dL Magnesium 2.0 (1.6-2.3) mg/dL Total Bilirubin (0.2-1.3) mg/dL AST (14-36) U/L ALT (9-52) U/L Alkaline Phosphatase (38-126) U/L Troponin I (0.000-0.034) ng/mL NT-Pro-B Natriuret Pep pg/mL Total Protein (6.3-8.2) g/dL Albumin (3.5-5.0) g/dL TSH (0.465-4.680) mIU/L Urine Color Urine Appearance (Clear) Urine pH (5.0-8.0) Ur Specific [place] (1.001-1.035) Urine Protein (Negative) Urine Glucose (UA) (Negative) Urine Ketones (Negative) Urine Blood (Negative) Urine Nitrite (Negative) Urine Bilirubin (Negative) Urine Urobilinogen (<2.0) mg/dL Ur Leukocyte Esterase (Negative) Urine WBC (0-5) /hpf Urine Mucus (None) /hpf Urine Osmolality (50-1400) mosm/kg Ur Random Sodium (30-90) mmol/L Blood Type Blood Type Confirm Blood Type Recheck Antibody Screen Spec Expiration Date 09/25/17 09/25/17 09/25/17 Range/Units 00:03 07:21 07:22 WBC (3.8-10.6) k/uL RBC (3.80-5.40) m/uL Hgb (11.4-16.0) gm/dL Hct (34.0-46.0) % MCV (80.0-100.0) fL MCH (25.0-35.0) pg MCHC (31.0-37.0) g/dL RDW (11.5-15.5) % Plt Count (150-450) k/uL Neutrophils % % Lymphocytes % % Monocytes % % Eosinophils % % Basophils % % Neutrophils # (1.3-7.7) k/uL Lymphocytes # (1.0-4.8) k/uL Monocytes # (0-1.0) k/uL Eosinophils # (0-0.7) k/uL Basophils # (0-0.2) k/uL Hypochromasia PT (9.0-12.0) sec INR (<1.2) APTT (22.0-30.0) sec Sodium (137-145) mmol/L Potassium (3.5-5.1) mmol/L Chloride (98-107) mmol/L Carbon Dioxide (22-30) mmol/L Anion Gap mmol/L BUN (7-17) mg/dL Creatinine (0.52-1.04) mg/dL Est GFR (CKD-EPI)AfAm (>60 ml/min/1.73 sqM) Est GFR (CKD-EPI)NonAf (>60 ml/min/1.73 sqM) Glucose (74-99) mg/dL POC Glucose (mg/dL) 173 H (75-99) mg/dL POC Glu Ve Teacher ID Guillermina Davalos Estimated Ave Glu mg/dL Hemoglobin A1c (4.0-6.0) % Osmolality (280-301) mosm/kg Calcium (8.4-10.2) mg/dL Phosphorus (2.5-4.5) mg/dL Magnesium 1.7 (1.6-2.3) mg/dL Total Bilirubin (0.2-1.3) mg/dL AST (14-36) U/L ALT (9-52) U/L Alkaline Phosphatase (38-126) U/L Troponin I (0.000-0.034) ng/mL NT-Pro-B Natriuret Pep 6080 pg/mL Total Protein (6.3-8.2) g/dL Albumin (3.5-5.0) g/dL TSH (0.465-4.680) mIU/L Urine Color Urine Appearance (Clear) Urine pH (5.0-8.0) Ur Specific [place] (1.001-1.035) Urine Protein (Negative) Urine Glucose (UA) (Negative) Urine Ketones (Negative) Urine Blood (Negative) Urine Nitrite (Negative) Urine Bilirubin (Negative) Urine Urobilinogen (<2.0) mg/dL Ur Leukocyte Esterase (Negative) Urine WBC (0-5) /hpf Urine Mucus (None) /hpf Urine Osmolality (50-1400) mosm/kg Ur Random Sodium (30-90) mmol/L Blood Type Blood Type Confirm Blood Type Recheck Antibody Screen Spec Expiration Date 09/25/17 09/25/17 09/25/17 Range/Units 07:22 07:22 11:48 WBC 10.1 (3.8-10.6) k/uL RBC 3.72 L (3.80-5.40) m/uL Hgb 10.4 L (11.4-16.0) gm/dL Hct 30.4 L (34.0-46.0) % MCV 81.9 (80.0-100.0) fL MCH 27.9 (25.0-35.0) pg MCHC 34.0 (31.0-37.0) g/dL RDW 14.8 (11.5-15.5) % Plt Count 301 (150-450) k/uL Neutrophils % 77 % Lymphocytes % 15 % Monocytes % 6 % Eosinophils % 1 % Basophils % 0 % Neutrophils # 7.8 H (1.3-7.7) k/uL Lymphocytes # 1.5 (1.0-4.8) k/uL Monocytes # 0.6 (0-1.0) k/uL Eosinophils # 0.1 (0-0.7) k/uL Basophils # 0.0 (0-0.2) k/uL Hypochromasia PT (9.0-12.0) sec INR (<1.2) APTT (22.0-30.0) sec Sodium 128 L (137-145) mmol/L Potassium 3.3 L (3.5-5.1) mmol/L Chloride 93 L (98-107) mmol/L Carbon Dioxide 23 (22-30) mmol/L Anion Gap 12 mmol/L BUN 5 L (7-17) mg/dL Creatinine 0.54 (0.52-1.04) mg/dL Est GFR (CKD-EPI)AfAm >90 (>60 ml/min/1.73 sqM) Est GFR (CKD-EPI)NonAf >90 (>60 ml/min/1.73 sqM) Glucose 159 H (74-99) mg/dL POC Glucose (mg/dL) 219 H (75-99) mg/dL POC Glu Ve Teacher ID Evon Levin Estimated Ave Glu mg/dL Hemoglobin A1c (4.0-6.0) % Osmolality (280-301) mosm/kg Calcium 8.5 (8.4-10.2) mg/dL Phosphorus (2.5-4.5) mg/dL Magnesium (1.6-2.3) mg/dL Total Bilirubin 0.6 (0.2-1.3) mg/dL AST 131 H (14-36) U/L ALT 46 (9-52) U/L Alkaline Phosphatase 52 (38-126) U/L Troponin I (0.000-0.034) ng/mL NT-Pro-B Natriuret Pep pg/mL Total Protein 5.3 L (6.3-8.2) g/dL Albumin 2.9 L (3.5-5.0) g/dL TSH (0.465-4.680) mIU/L Urine Color Urine Appearance (Clear) Urine pH (5.0-8.0) Ur Specific [place] (1.001-1.035) Urine Protein (Negative) Urine Glucose (UA) (Negative) Urine Ketones (Negative) Urine Blood (Negative) Urine Nitrite (Negative) Urine Bilirubin (Negative) Urine Urobilinogen (<2.0) mg/dL Ur Leukocyte Esterase (Negative) Urine WBC (0-5) /hpf Urine Mucus (None) /hpf Urine Osmolality (50-1400) mosm/kg Ur Random Sodium (30-90) mmol/L Blood Type Blood Type Confirm Blood Type Recheck Antibody Screen Spec Expiration Date 09/25/17 09/25/17 09/25/17 Range/Units 12:30 17:04 19:58 WBC (3.8-10.6) k/uL RBC (3.80-5.40) m/uL Hgb (11.4-16.0) gm/dL Hct (34.0-46.0) % MCV (80.0-100.0) fL MCH (25.0-35.0) pg MCHC (31.0-37.0) g/dL RDW (11.5-15.5) % Plt Count (150-450) k/uL Neutrophils % % Lymphocytes % % Monocytes % % Eosinophils % % Basophils % % Neutrophils # (1.3-7.7) k/uL Lymphocytes # (1.0-4.8) k/uL Monocytes # (0-1.0) k/uL Eosinophils # (0-0.7) k/uL Basophils # (0-0.2) k/uL Hypochromasia PT (9.0-12.0) sec INR (<1.2) APTT (22.0-30.0) sec Sodium (137-145) mmol/L Potassium (3.5-5.1) mmol/L Chloride (98-107) mmol/L Carbon Dioxide (22-30) mmol/L Anion Gap mmol/L BUN (7-17) mg/dL Creatinine (0.52-1.04) mg/dL Est GFR (CKD-EPI)AfAm (>60 ml/min/1.73 sqM) Est GFR (CKD-EPI)NonAf (>60 ml/min/1.73 sqM) Glucose (74-99) mg/dL POC Glucose (mg/dL) 202 H 204 H (75-99) mg/dL POC Glu Ve Teacher Evon Jamil Loretta [address]imated Ave Glu mg/dL Hemoglobin A1c (4.0-6.0) % Osmolality (280-301) mosm/kg Calcium (8.4-10.2) mg/dL Phosphorus (2.5-4.5) mg/dL Magnesium (1.6-2.3) mg/dL Total Bilirubin (0.2-1.3) mg/dL AST (14-36) U/L ALT (9-52) U/L Alkaline Phosphatase (38-126) U/L Troponin I (0.000-0.034) ng/mL NT-Pro-B Natriuret Pep pg/mL Total Protein (6.3-8.2) g/dL Albumin (3.5-5.0) g/dL TSH (0.465-4.680) mIU/L Urine Color Colorless Urine Appearance Clear (Clear) Urine pH 6.5 (5.0-8.0) Ur Specific [place] 1.004 (1.001-1.035) Urine Protein Negative (Negative) Urine Glucose (UA) Negative (Negative) Urine Ketones Negative (Negative) Urine Blood Negative (Negative) Urine Nitrite Negative (Negative) Urine Bilirubin Negative (Negative) Urine Urobilinogen <2.0 (<2.0) mg/dL Ur Leukocyte Esterase Negative (Negative) Urine WBC (0-5) /hpf Urine Mucus (None) /hpf Urine Osmolality (50-1400) mosm/kg Ur Random Sodium (30-90) mmol/L Blood Type Blood Type Confirm Blood Type Recheck Antibody Screen Spec Expiration Date 09/26/17 09/26/17 09/26/17 Range/Units 00:47 00:47 00:47 WBC 12.9 H (3.8-10.6) k/uL RBC 3.85 (3.80-5.40) m/uL Hgb 10.5 L (11.4-16.0) gm/dL Hct 31.5 L (34.0-46.0) % MCV 81.8 (80.0-100.0) fL MCH 27.1 (25.0-35.0) pg MCHC 33.2 (31.0-37.0) g/dL RDW 14.5 (11.5-15.5) % Plt Count 357 (150-450) k/uL Neutrophils % 83 % Lymphocytes % 10 % Monocytes % 5 % Eosinophils % 1 % Basophils % 0 % Neutrophils # 10.7 H (1.3-7.7) k/uL Lymphocytes # 1.3 (1.0-4.8) k/uL Monocytes # 0.6 (0-1.0) k/uL Eosinophils # 0.1 (0-0.7) k/uL Basophils # 0.0 (0-0.2) k/uL Hypochromasia PT (9.0-12.0) sec INR (<1.2) APTT (22.0-30.0) sec Sodium 125 L (137-145) mmol/L Potassium 3.5 (3.5-5.1) mmol/L Chloride 90 L (98-107) mmol/L Carbon Dioxide 22 (22-30) mmol/L Anion Gap 13 mmol/L BUN 7 (7-17) mg/dL Creatinine 0.60 (0.52-1.04) mg/dL Est GFR (CKD-EPI)AfAm >90 (>60 ml/min/1.73 sqM) Est GFR (CKD-EPI)NonAf >90 (>60 ml/min/1.73 sqM) Glucose 195 H (74-99) mg/dL POC Glucose (mg/dL) (75-99) mg/dL POC Glu Ve Teacher ID Estimated Ave Glu mg/dL Hemoglobin A1c (4.0-6.0) % Osmolality (280-301) mosm/kg Calcium 8.7 (8.4-10.2) mg/dL Phosphorus (2.5-4.5) mg/dL Magnesium (1.6-2.3) mg/dL Total Bilirubin (0.2-1.3) mg/dL AST (14-36) U/L ALT (9-52) U/L Alkaline Phosphatase (38-126) U/L Troponin I (0.000-0.034) ng/mL NT-Pro-B Natriuret Pep 8850 pg/mL Total Protein (6.3-8.2) g/dL Albumin (3.5-5.0) g/dL TSH (0.465-4.680) mIU/L Urine Color Urine Appearance (Clear) Urine pH (5.0-8.0) Ur Specific [place] (1.001-1.035) Urine Protein (Negative) Urine Glucose (UA) (Negative) Urine Ketones (Negative) Urine Blood (Negative) Urine Nitrite (Negative) Urine Bilirubin (Negative) Urine Urobilinogen (<2.0) mg/dL Ur Leukocyte Esterase (Negative) Urine WBC (0-5) /hpf Urine Mucus (None) /hpf Urine Osmolality (50-1400) mosm/kg Ur Random Sodium (30-90) mmol/L Blood Type Blood Type Confirm Blood Type Recheck Antibody Screen Spec Expiration Date 09/26/17 09/26/17 09/26/17 Range/Units 06:49 07:09 07:09 WBC 13.8 H (3.8-10.6) k/uL RBC 3.96 (3.80-5.40) m/uL Hgb 10.7 L (11.4-16.0) gm/dL Hct 32.3 L (34.0-46.0) % MCV 81.6 (80.0-100.0) fL MCH 27.0 (25.0-35.0) pg MCHC 33.1 (31.0-37.0) g/dL RDW 14.8 (11.5-15.5) % Plt Count 374 (150-450) k/uL Neutrophils % 79 % Lymphocytes % 15 % Monocytes % 5 % Eosinophils % 0 % Basophils % 0 % Neutrophils # 10.9 H (1.3-7.7) k/uL Lymphocytes # 2.0 (1.0-4.8) k/uL Monocytes # 0.7 (0-1.0) k/uL Eosinophils # 0.1 (0-0.7) k/uL Basophils # 0.0 (0-0.2) k/uL Hypochromasia PT (9.0-12.0) sec INR (<1.2) APTT (22.0-30.0) sec Sodium 127 L (137-145) mmol/L Potassium 4.2 (3.5-5.1) mmol/L Chloride 91 L (98-107) mmol/L Carbon Dioxide 22 (22-30) mmol/L Anion Gap 14 mmol/L BUN 8 (7-17) mg/dL Creatinine 0.55 (0.52-1.04) mg/dL Est GFR (CKD-EPI)AfAm >90 (>60 ml/min/1.73 sqM) Est GFR (CKD-EPI)NonAf >90 (>60 ml/min/1.73 sqM) Glucose 171 H (74-99) mg/dL POC Glucose (mg/dL) 195 H (75-99) mg/dL POC Glu Ve Teacher ID Guillermina Davalos [address]imated Ave Glu mg/dL Hemoglobin A1c (4.0-6.0) % Osmolality (280-301) mosm/kg Calcium 8.6 (8.4-10.2) mg/dL Phosphorus (2.5-4.5) mg/dL Magnesium 1.3 L (1.6-2.3) mg/dL Total Bilirubin 0.8 (0.2-1.3) mg/dL AST 64 H (14-36) U/L ALT 39 (9-52) U/L Alkaline Phosphatase 54 (38-126) U/L Troponin I (0.000-0.034) ng/mL NT-Pro-B Natriuret Pep pg/mL Total Protein 5.7 L (6.3-8.2) g/dL Albumin 3.1 L (3.5-5.0) g/dL TSH (0.465-4.680) mIU/L Urine Color Urine Appearance (Clear) Urine pH (5.0-8.0) Ur Specific [place] (1.001-1.035) Urine Protein (Negative) Urine Glucose (UA) (Negative) Urine Ketones (Negative) Urine Blood (Negative) Urine Nitrite (Negative) Urine Bilirubin (Negative) Urine Urobilinogen (<2.0) mg/dL Ur Leukocyte Esterase (Negative) Urine WBC (0-5) /hpf Urine Mucus (None) /hpf Urine Osmolality (50-1400) mosm/kg Ur Random Sodium (30-90) mmol/L Blood Type Blood Type Confirm Blood Type Recheck Antibody Screen Spec Expiration Date 09/26/17 09/26/17 09/26/17 Range/Units 12:40 12:40 12:42 WBC (3.8-10.6) k/uL RBC (3.80-5.40) m/uL Hgb (11.4-16.0) gm/dL Hct (34.0-46.0) % MCV (80.0-100.0) fL MCH (25.0-35.0) pg MCHC (31.0-37.0) g/dL RDW (11.5-15.5) % Plt Count (150-450) k/uL Neutrophils % % Lymphocytes % % Monocytes % % Eosinophils % % Basophils % % Neutrophils # (1.3-7.7) k/uL Lymphocytes # (1.0-4.8) k/uL Monocytes # (0-1.0) k/uL Eosinophils # (0-0.7) k/uL Basophils # (0-0.2) k/uL Hypochromasia PT (9.0-12.0) sec INR (<1.2) APTT (22.0-30.0) sec Sodium (137-145) mmol/L Potassium (3.5-5.1) mmol/L Chloride (98-107) mmol/L Carbon Dioxide (22-30) mmol/L Anion Gap mmol/L BUN (7-17) mg/dL Creatinine (0.52-1.04) mg/dL Est GFR (CKD-EPI)AfAm (>60 ml/min/1.73 sqM) Est GFR (CKD-EPI)NonAf (>60 ml/min/1.73 sqM) Glucose (74-99) mg/dL POC Glucose (mg/dL) 230 H (75-99) mg/dL POC Glu Ve Teacher ID Evon Levin Estimated Ave Glu mg/dL Hemoglobin A1c (4.0-6.0) % Osmolality 264 L (280-301) mosm/kg Calcium (8.4-10.2) mg/dL Phosphorus (2.5-4.5) mg/dL Magnesium (1.6-2.3) mg/dL Total Bilirubin (0.2-1.3) mg/dL AST (14-36) U/L ALT (9-52) U/L Alkaline Phosphatase (38-126) U/L Troponin I 14.500 H* (0.000-0.034) ng/mL NT-Pro-B Natriuret Pep pg/mL Total Protein (6.3-8.2) g/dL Albumin (3.5-5.0) g/dL TSH (0.465-4.680) mIU/L Urine Color Urine Appearance (Clear) Urine pH (5.0-8.0) Ur Specific [place] (1.001-1.035) Urine Protein (Negative) Urine Glucose (UA) (Negative) Urine Ketones (Negative) Urine Blood (Negative) Urine Nitrite (Negative) Urine Bilirubin (Negative) Urine Urobilinogen (<2.0) mg/dL Ur Leukocyte Esterase (Negative) Urine WBC (0-5) /hpf Urine Mucus (None) /hpf Urine Osmolality (50-1400) mosm/kg Ur Random Sodium (30-90) mmol/L Blood Type Blood Type Confirm Blood Type Recheck Antibody Screen Spec Expiration Date 09/26/17 09/26/17 09/26/17 Range/Units 14:17 14:17 16:23 WBC 12.1 H (3.8-10.6) k/uL RBC 3.93 (3.80-5.40) m/uL Hgb 10.9 L (11.4-16.0) gm/dL Hct 32.7 L (34.0-46.0) % MCV 83.2 (80.0-100.0) fL MCH 27.8 (25.0-35.0) pg MCHC 33.4 (31.0-37.0) g/dL RDW 14.4 (11.5-15.5) % Plt Count 368 (150-450) k/uL Neutrophils % 75 % Lymphocytes % 16 % Monocytes % 6 % Eosinophils % 1 % Basophils % 0 % Neutrophils # 9.1 H (1.3-7.7) k/uL Lymphocytes # 1.9 (1.0-4.8) k/uL Monocytes # 0.8 (0-1.0) k/uL Eosinophils # 0.1 (0-0.7) k/uL Basophils # 0.0 (0-0.2) k/uL Hypochromasia Slight PT 10.5 (9.0-12.0) sec INR 1.1 (<1.2) APTT 24.8 (22.0-30.0) sec Sodium (137-145) mmol/L Potassium (3.5-5.1) mmol/L Chloride (98-107) mmol/L Carbon Dioxide (22-30) mmol/L Anion Gap mmol/L BUN (7-17) mg/dL Creatinine (0.52-1.04) mg/dL Est GFR (CKD-EPI)AfAm (>60 ml/min/1.73 sqM) Est GFR (CKD-EPI)NonAf (>60 ml/min/1.73 sqM) Glucose (74-99) mg/dL POC Glucose (mg/dL) (75-99) mg/dL POC Glu Ve Teacher ID Estimated Ave Glu mg/dL Hemoglobin A1c (4.0-6.0) % Osmolality (280-301) mosm/kg Calcium (8.4-10.2) mg/dL Phosphorus (2.5-4.5) mg/dL Magnesium (1.6-2.3) mg/dL Total Bilirubin (0.2-1.3) mg/dL AST (14-36) U/L ALT (9-52) U/L Alkaline Phosphatase (38-126) U/L Troponin I (0.000-0.034) ng/mL NT-Pro-B Natriuret Pep pg/mL Total Protein (6.3-8.2) g/dL Albumin (3.5-5.0) g/dL TSH (0.465-4.680) mIU/L Urine Color Urine Appearance (Clear) Urine pH (5.0-8.0) Ur Specific [place] (1.001-1.035) Urine Protein (Negative) Urine Glucose (UA) (Negative) Urine Ketones (Negative) Urine Blood (Negative) Urine Nitrite (Negative) Urine Bilirubin (Negative) Urine Urobilinogen (<2.0) mg/dL Ur Leukocyte Esterase (Negative) Urine WBC (0-5) /hpf Urine Mucus (None) /hpf Urine Osmolality 184 (50-1400) mosm/kg Ur Random Sodium (30-90) mmol/L Blood Type Blood Type Confirm Blood Type Recheck Antibody Screen Spec Expiration Date 09/26/17 09/26/17 09/26/17 Range/Units 16:23 16:28 18:05 WBC (3.8-10.6) k/uL RBC (3.80-5.40) m/uL Hgb (11.4-16.0) gm/dL Hct (34.0-46.0) % MCV (80.0-100.0) fL MCH (25.0-35.0) pg MCHC (31.0-37.0) g/dL RDW (11.5-15.5) % Plt Count (150-450) k/uL Neutrophils % % Lymphocytes % % Monocytes % % Eosinophils % % Basophils % % Neutrophils # (1.3-7.7) k/uL Lymphocytes # (1.0-4.8) k/uL Monocytes # (0-1.0) k/uL Eosinophils # (0-0.7) k/uL Basophils # (0-0.2) k/uL Hypochromasia PT (9.0-12.0) sec INR (<1.2) APTT (22.0-30.0) sec Sodium 124 L (137-145) mmol/L Potassium (3.5-5.1) mmol/L Chloride (98-107) mmol/L Carbon Dioxide (22-30) mmol/L Anion Gap mmol/L BUN (7-17) mg/dL Creatinine (0.52-1.04) mg/dL Est GFR (CKD-EPI)AfAm (>60 ml/min/1.73 sqM) Est GFR (CKD-EPI)NonAf (>60 ml/min/1.73 sqM) Glucose (74-99) mg/dL POC Glucose (mg/dL) 212 H (75-99) mg/dL POC Glu Ve Teacher ID Tasneem Rivas Estimated Ave Glu mg/dL Hemoglobin A1c (4.0-6.0) % Osmolality (280-301) mosm/kg Calcium (8.4-10.2) mg/dL Phosphorus (2.5-4.5) mg/dL Magnesium (1.6-2.3) mg/dL Total Bilirubin (0.2-1.3) mg/dL AST (14-36) U/L ALT (9-52) U/L Alkaline Phosphatase (38-126) U/L Troponin I (0.000-0.034) ng/mL NT-Pro-B Natriuret Pep pg/mL Total Protein (6.3-8.2) g/dL Albumin (3.5-5.0) g/dL TSH (0.465-4.680) mIU/L Urine Color Urine Appearance (Clear) Urine pH (5.0-8.0) Ur Specific [place] (1.001-1.035) Urine Protein (Negative) Urine Glucose (UA) (Negative) Urine Ketones (Negative) Urine Blood (Negative) Urine Nitrite (Negative) Urine Bilirubin (Negative) Urine Urobilinogen (<2.0) mg/dL Ur Leukocyte Esterase (Negative) Urine WBC (0-5) /hpf Urine Mucus (None) /hpf Urine Osmolality (50-1400) mosm/kg Ur Random Sodium 5 L (30-90) mmol/L Blood Type Blood Type Confirm Blood Type Recheck Antibody Screen Spec Expiration Date 09/26/17 09/26/17 09/26/17 Range/Units 18:05 19:45 21:05 WBC (3.8-10.6) k/uL RBC (3.80-5.40) m/uL Hgb (11.4-16.0) gm/dL Hct (34.0-46.0) % MCV (80.0-100.0) fL MCH (25.0-35.0) pg MCHC (31.0-37.0) g/dL RDW (11.5-15.5) % Plt Count (150-450) k/uL Neutrophils % % Lymphocytes % % Monocytes % % Eosinophils % % Basophils % % Neutrophils # (1.3-7.7) k/uL Lymphocytes # (1.0-4.8) k/uL Monocytes # (0-1.0) k/uL Eosinophils # (0-0.7) k/uL Basophils # (0-0.2) k/uL Hypochromasia PT (9.0-12.0) sec INR (<1.2) APTT 37.9 H (22.0-30.0) sec Sodium (137-145) mmol/L Potassium (3.5-5.1) mmol/L Chloride (98-107) mmol/L Carbon Dioxide (22-30) mmol/L Anion Gap mmol/L BUN (7-17) mg/dL Creatinine (0.52-1.04) mg/dL Est GFR (CKD-EPI)AfAm (>60 ml/min/1.73 sqM) Est GFR (CKD-EPI)NonAf (>60 ml/min/1.73 sqM) Glucose (74-99) mg/dL POC Glucose (mg/dL) 188 H (75-99) mg/dL POC Glu Ve Teacher ID Steph Howell Estimated Ave Glu mg/dL Hemoglobin A1c (4.0-6.0) % Osmolality (280-301) mosm/kg Calcium (8.4-10.2) mg/dL Phosphorus (2.5-4.5) mg/dL Magnesium (1.6-2.3) mg/dL Total Bilirubin (0.2-1.3) mg/dL AST (14-36) U/L ALT (9-52) U/L Alkaline Phosphatase (38-126) U/L Troponin I 13.100 H* (0.000-0.034) ng/mL NT-Pro-B Natriuret Pep pg/mL Total Protein (6.3-8.2) g/dL Albumin (3.5-5.0) g/dL TSH (0.465-4.680) mIU/L Urine Color Urine Appearance (Clear) Urine pH (5.0-8.0) Ur Specific [place] (1.001-1.035) Urine Protein (Negative) Urine Glucose (UA) (Negative) Urine Ketones (Negative) Urine Blood (Negative) Urine Nitrite (Negative) Urine Bilirubin (Negative) Urine Urobilinogen (<2.0) mg/dL Ur Leukocyte Esterase (Negative) Urine WBC (0-5) /hpf Urine Mucus (None) /hpf Urine Osmolality (50-1400) mosm/kg Ur Random Sodium (30-90) mmol/L Blood Type Blood Type Confirm Blood Type Recheck Antibody Screen Spec Expiration Date 09/27/17 09/27/17 09/27/17 Range/Units 00:16 03:14 03:14 WBC 9.2 (3.8-10.6) k/uL RBC 3.40 L (3.80-5.40) m/uL Hgb 9.3 L D (11.4-16.0) gm/dL Hct 27.5 L (34.0-46.0) % MCV 80.7 (80.0-100.0) fL MCH 27.3 (25.0-35.0) pg MCHC 33.8 (31.0-37.0) g/dL RDW 14.5 (11.5-15.5) % Plt Count 335 (150-450) k/uL Neutrophils % 70 % Lymphocytes % 20 % Monocytes % 6 % Eosinophils % 2 % Basophils % 0 % Neutrophils # 6.4 (1.3-7.7) k/uL Lymphocytes # 1.8 (1.0-4.8) k/uL Monocytes # 0.6 (0-1.0) k/uL Eosinophils # 0.2 (0-0.7) k/uL Basophils # 0.0 (0-0.2) k/uL Hypochromasia PT (9.0-12.0) sec INR (<1.2) APTT (22.0-30.0) sec Sodium 122 L (137-145) mmol/L Potassium 3.7 (3.5-5.1) mmol/L Chloride 89 L (98-107) mmol/L Carbon Dioxide 24 (22-30) mmol/L Anion Gap 9 mmol/L BUN 10 (7-17) mg/dL Creatinine 0.70 (0.52-1.04) mg/dL Est GFR (CKD-EPI)AfAm >90 (>60 ml/min/1.73 sqM) Est GFR (CKD-EPI)NonAf 86 (>60 ml/min/1.73 sqM) Glucose 164 H (74-99) mg/dL POC Glucose (mg/dL) (75-99) mg/dL POC Glu Ve Teacher ID Estimated Ave Glu mg/dL Hemoglobin A1c (4.0-6.0) % Osmolality (280-301) mosm/kg Calcium 8.5 (8.4-10.2) mg/dL Phosphorus (2.5-4.5) mg/dL Magnesium 1.7 (1.6-2.3) mg/dL Total Bilirubin 0.4 (0.2-1.3) mg/dL AST 34 (14-36) U/L ALT 41 (9-52) U/L Alkaline Phosphatase 49 (38-126) U/L Troponin I 12.300 H* (0.000-0.034) ng/mL NT-Pro-B Natriuret Pep pg/mL Total Protein 5.0 L (6.3-8.2) g/dL Albumin 2.7 L (3.5-5.0) g/dL TSH (0.465-4.680) mIU/L Urine Color Urine Appearance (Clear) Urine pH (5.0-8.0) Ur Specific [place] (1.001-1.035) Urine Protein (Negative) Urine Glucose (UA) (Negative) Urine Ketones (Negative) Urine Blood (Negative) Urine Nitrite (Negative) Urine Bilirubin (Negative) Urine Urobilinogen (<2.0) mg/dL Ur Leukocyte Esterase (Negative) Urine WBC (0-5) /hpf Urine Mucus (None) /hpf Urine Osmolality (50-1400) mosm/kg Ur Random Sodium (30-90) mmol/L Blood Type Blood Type Confirm Blood Type Recheck Antibody Screen Spec Expiration Date 09/27/17 09/27/17 09/27/17 Range/Units 03:14 05:40 10:33 WBC (3.8-10.6) k/uL RBC (3.80-5.40) m/uL Hgb (11.4-16.0) gm/dL Hct (34.0-46.0) % MCV (80.0-100.0) fL MCH (25.0-35.0) pg MCHC (31.0-37.0) g/dL RDW (11.5-15.5) % Plt Count (150-450) k/uL Neutrophils % % Lymphocytes % % Monocytes % % Eosinophils % % Basophils % % Neutrophils # (1.3-7.7) k/uL Lymphocytes # (1.0-4.8) k/uL Monocytes # (0-1.0) k/uL Eosinophils # (0-0.7) k/uL Basophils # (0-0.2) k/uL Hypochromasia PT (9.0-12.0) sec INR (<1.2) APTT 44.7 H 41.3 H (22.0-30.0) sec Sodium (137-145) mmol/L Potassium (3.5-5.1) mmol/L Chloride (98-107) mmol/L Carbon Dioxide (22-30) mmol/L Anion Gap mmol/L BUN (7-17) mg/dL Creatinine (0.52-1.04) mg/dL Est GFR (CKD-EPI)AfAm (>60 ml/min/1.73 sqM) Est GFR (CKD-EPI)NonAf (>60 ml/min/1.73 sqM) Glucose (74-99) mg/dL POC Glucose (mg/dL) 186 H (75-99) mg/dL POC Glu Ve Teacher ID Jorge Haque [address] Glu mg/dL Hemoglobin A1c (4.0-6.0) % Osmolality (280-301) mosm/kg Calcium (8.4-10.2) mg/dL Phosphorus (2.5-4.5) mg/dL Magnesium (1.6-2.3) mg/dL Total Bilirubin (0.2-1.3) mg/dL AST (14-36) U/L ALT (9-52) U/L Alkaline Phosphatase (38-126) U/L Troponin I (0.000-0.034) ng/mL NT-Pro-B Natriuret Pep pg/mL Total Protein (6.3-8.2) g/dL Albumin (3.5-5.0) g/dL TSH (0.465-4.680) mIU/L Urine Color Urine Appearance (Clear) Urine pH (5.0-8.0) Ur Specific [place] (1.001-1.035) Urine Protein (Negative) Urine Glucose (UA) (Negative) Urine Ketones (Negative) Urine Blood (Negative) Urine Nitrite (Negative) Urine Bilirubin (Negative) Urine Urobilinogen (<2.0) mg/dL Ur Leukocyte Esterase (Negative) Urine WBC (0-5) /hpf Urine Mucus (None) /hpf Urine Osmolality (50-1400) mosm/kg Ur Random Sodium (30-90) mmol/L Blood Type Blood Type Confirm Blood Type Recheck Antibody Screen Spec Expiration Date 09/27/17 09/27/17 09/27/17 Range/Units 11:29 13:38 17:06 WBC (3.8-10.6) k/uL RBC (3.80-5.40) m/uL Hgb (11.4-16.0) gm/dL Hct (34.0-46.0) % MCV (80.0-100.0) fL MCH (25.0-35.0) pg MCHC (31.0-37.0) g/dL RDW (11.5-15.5) % Plt Count (150-450) k/uL Neutrophils % % Lymphocytes % % Monocytes % % Eosinophils % % Basophils % % Neutrophils # (1.3-7.7) k/uL Lymphocytes # (1.0-4.8) k/uL Monocytes # (0-1.0) k/uL Eosinophils # (0-0.7) k/uL Basophils # (0-0.2) k/uL Hypochromasia PT (9.0-12.0) sec INR (<1.2) APTT (22.0-30.0) sec Sodium 128 L (137-145) mmol/L Potassium (3.5-5.1) mmol/L Chloride (98-107) mmol/L Carbon Dioxide (22-30) mmol/L Anion Gap mmol/L BUN (7-17) mg/dL Creatinine (0.52-1.04) mg/dL Est GFR (CKD-EPI)AfAm (>60 ml/min/1.73 sqM) Est GFR (CKD-EPI)NonAf (>60 ml/min/1.73 sqM) Glucose (74-99) mg/dL POC Glucose (mg/dL) 243 H 236 H (75-99) mg/dL POC Glu Ve Teacher Tasneem Markham Andrea [address] Glu mg/dL Hemoglobin A1c (4.0-6.0) % Osmolality (280-301) mosm/kg Calcium (8.4-10.2) mg/dL Phosphorus (2.5-4.5) mg/dL Magnesium (1.6-2.3) mg/dL Total Bilirubin (0.2-1.3) mg/dL AST (14-36) U/L ALT (9-52) U/L Alkaline Phosphatase (38-126) U/L Troponin I (0.000-0.034) ng/mL NT-Pro-B Natriuret Pep pg/mL Total Protein (6.3-8.2) g/dL Albumin (3.5-5.0) g/dL TSH (0.465-4.680) mIU/L Urine Color Urine Appearance (Clear) Urine pH (5.0-8.0) Ur Specific [place] (1.001-1.035) Urine Protein (Negative) Urine Glucose (UA) (Negative) Urine Ketones (Negative) Urine Blood (Negative) Urine Nitrite (Negative) Urine Bilirubin (Negative) Urine Urobilinogen (<2.0) mg/dL Ur Leukocyte Esterase (Negative) Urine WBC (0-5) /hpf Urine Mucus (None) /hpf Urine Osmolality (50-1400) mosm/kg Ur Random Sodium (30-90) mmol/L Blood Type Blood Type Confirm Blood Type Recheck Antibody Screen Spec Expiration Date 09/27/17 09/27/17 09/27/17 Range/Units 17:06 17:35 18:15 WBC (3.8-10.6) k/uL RBC (3.80-5.40) m/uL Hgb (11.4-16.0) gm/dL Hct (34.0-46.0) % MCV (80.0-100.0) fL MCH (25.0-35.0) pg MCHC (31.0-37.0) g/dL RDW (11.5-15.5) % Plt Count (150-450) k/uL Neutrophils % % Lymphocytes % % Monocytes % % Eosinophils % % Basophils % % Neutrophils # (1.3-7.7) k/uL Lymphocytes # (1.0-4.8) k/uL Monocytes # (0-1.0) k/uL Eosinophils # (0-0.7) k/uL Basophils # (0-0.2) k/uL Hypochromasia PT (9.0-12.0) sec INR (<1.2) APTT (22.0-30.0) sec Sodium 129 L (137-145) mmol/L Potassium 3.8 (3.5-5.1) mmol/L Chloride 92 L (98-107) mmol/L Carbon Dioxide 22 (22-30) mmol/L Anion Gap 15 mmol/L BUN 9 (7-17) mg/dL Creatinine 0.60 (0.52-1.04) mg/dL Est GFR (CKD-EPI)AfAm >90 (>60 ml/min/1.73 sqM) Est GFR (CKD-EPI)NonAf >90 (>60 ml/min/1.73 sqM) Glucose 211 H (74-99) mg/dL POC Glucose (mg/dL) 230 H (75-99) mg/dL POC Glu Ve Teacher ID Leonel Monteiro [address] Glu mg/dL Hemoglobin A1c (4.0-6.0) % Osmolality (280-301) mosm/kg Calcium 8.5 (8.4-10.2) mg/dL Phosphorus (2.5-4.5) mg/dL Magnesium (1.6-2.3) mg/dL Total Bilirubin (0.2-1.3) mg/dL AST (14-36) U/L ALT (9-52) U/L Alkaline Phosphatase (38-126) U/L Troponin I (0.000-0.034) ng/mL NT-Pro-B Natriuret Pep pg/mL Total Protein (6.3-8.2) g/dL Albumin (3.5-5.0) g/dL TSH (0.465-4.680) mIU/L Urine Color Light Yellow Urine Appearance Clear (Clear) Urine pH 5.5 (5.0-8.0) Ur Specific [place] 1.010 (1.001-1.035) Urine Protein Negative (Negative) Urine Glucose (UA) Negative (Negative) Urine Ketones Negative (Negative) Urine Blood Negative (Negative) Urine Nitrite Negative (Negative) Urine Bilirubin Negative (Negative) Urine Urobilinogen <2.0 (<2.0) mg/dL Ur Leukocyte Esterase Trace H (Negative) Urine WBC 4 (0-5) /hpf Urine Mucus Rare H (None) /hpf Urine Osmolality (50-1400) mosm/kg Ur Random Sodium (30-90) mmol/L Blood Type Blood Type Confirm Blood Type Recheck Antibody Screen Spec Expiration Date 09/27/17 09/28/17 09/28/17 Range/Units 21:57 04:35 04:35 WBC 9.1 (3.8-10.6) k/uL RBC 3.83 (3.80-5.40) m/uL Hgb 10.4 L (11.4-16.0) gm/dL Hct 31.1 L (34.0-46.0) % MCV 81.2 (80.0-100.0) fL MCH 27.1 (25.0-35.0) pg MCHC 33.3 (31.0-37.0) g/dL RDW 14.5 (11.5-15.5) % Plt Count 424 (150-450) k/uL Neutrophils % 80 % Lymphocytes % 12 % Monocytes % 6 % Eosinophils % 0 % Basophils % 0 % Neutrophils # 7.3 (1.3-7.7) k/uL Lymphocytes # 1.1 (1.0-4.8) k/uL Monocytes # 0.5 (0-1.0) k/uL Eosinophils # 0.0 (0-0.7) k/uL Basophils # 0.0 (0-0.2) k/uL Hypochromasia PT (9.0-12.0) sec INR (<1.2) APTT (22.0-30.0) sec Sodium 132 L (137-145) mmol/L Potassium 3.9 (3.5-5.1) mmol/L Chloride 92 L (98-107) mmol/L Carbon Dioxide 26 (22-30) mmol/L Anion Gap 14 mmol/L BUN 8 (7-17) mg/dL Creatinine 0.66 (0.52-1.04) mg/dL Est GFR (CKD-EPI)AfAm >90 (>60 ml/min/1.73 sqM) Est GFR (CKD-EPI)NonAf 87 (>60 ml/min/1.73 sqM) Glucose 209 H (74-99) mg/dL POC Glucose (mg/dL) 171 H (75-99) mg/dL POC Glu Ve Teacher ID Mick Chacon [address] Glu mg/dL Hemoglobin A1c (4.0-6.0) % Osmolality (280-301) mosm/kg Calcium 8.4 (8.4-10.2) mg/dL Phosphorus 4.7 H (2.5-4.5) mg/dL Magnesium 1.5 L (1.6-2.3) mg/dL Total Bilirubin 0.5 (0.2-1.3) mg/dL AST 22 (14-36) U/L ALT 34 (9-52) U/L Alkaline Phosphatase 58 (38-126) U/L Troponin I (0.000-0.034) ng/mL NT-Pro-B Natriuret Pep pg/mL Total Protein 5.7 L (6.3-8.2) g/dL Albumin 3.1 L (3.5-5.0) g/dL TSH (0.465-4.680) mIU/L Urine Color Urine Appearance (Clear) Urine pH (5.0-8.0) Ur Specific [place] (1.001-1.035) Urine Protein (Negative) Urine Glucose (UA) (Negative) Urine Ketones (Negative) Urine Blood (Negative) Urine Nitrite (Negative) Urine Bilirubin (Negative) Urine Urobilinogen (<2.0) mg/dL Ur Leukocyte Esterase (Negative) Urine WBC (0-5) /hpf Urine Mucus (None) /hpf Urine Osmolality (50-1400) mosm/kg Ur Random Sodium (30-90) mmol/L Blood Type Blood Type Confirm Blood Type Recheck Antibody Screen Spec Expiration Date 09/28/17 09/28/17 Range/Units 05:03 05:42 WBC (3.8-10.6) k/uL RBC (3.80-5.40) m/uL Hgb (11.4-16.0) gm/dL Hct (34.0-46.0) % MCV (80.0-100.0) fL MCH (25.0-35.0) pg MCHC (31.0-37.0) g/dL RDW (11.5-15.5) % Plt Count (150-450) k/uL Neutrophils % % Lymphocytes % % Monocytes % % Eosinophils % % Basophils % % Neutrophils # (1.3-7.7) k/uL Lymphocytes # (1.0-4.8) k/uL Monocytes # (0-1.0) k/uL Eosinophils # (0-0.7) k/uL Basophils # (0-0.2) k/uL Hypochromasia PT (9.0-12.0) sec INR (<1.2) APTT 24.3 (22.0-30.0) sec Sodium (137-145) mmol/L Potassium (3.5-5.1) mmol/L Chloride (98-107) mmol/L Carbon Dioxide (22-30) mmol/L Anion Gap mmol/L BUN (7-17) mg/dL Creatinine (0.52-1.04) mg/dL Est GFR (CKD-EPI)AfAm (>60 ml/min/1.73 sqM) Est GFR (CKD-EPI)NonAf (>60 ml/min/1.73 sqM) Glucose (74-99) mg/dL POC Glucose (mg/dL) 230 H (75-99) mg/dL POC Glu Ve Teacher ID Zach Garcia [address]imated [address] Glu mg/dL Hemoglobin A1c (4.0-6.0) % Osmolality (280-301) mosm/kg Calcium (8.4-10.2) mg/dL Phosphorus (2.5-4.5) mg/dL Magnesium (1.6-2.3) mg/dL Total Bilirubin (0.2-1.3) mg/dL AST (14-36) U/L ALT (9-52) U/L Alkaline Phosphatase (38-126) U/L Troponin I (0.000-0.034) ng/mL NT-Pro-B Natriuret Pep pg/mL Total Protein (6.3-8.2) g/dL Albumin (3.5-5.0) g/dL TSH (0.465-4.680) mIU/L Urine Color Urine Appearance (Clear) Urine pH (5.0-8.0) Ur Specific [place] (1.001-1.035) Urine Protein (Negative) Urine Glucose (UA) (Negative) Urine Ketones (Negative) Urine Blood (Negative) Urine Nitrite (Negative) Urine Bilirubin (Negative) Urine Urobilinogen (<2.0) mg/dL Ur Leukocyte Esterase (Negative) Urine WBC (0-5) /hpf Urine Mucus (None) /hpf Urine Osmolality (50-1400) mosm/kg Ur Random Sodium (30-90) mmol/L Blood Type Blood Type Confirm Blood Type Recheck Antibody Screen Spec Expiration Date Disposition Clinical Impression: Cardiac arrest Disposition: Condition: Poor Preliminary Cause of : Cardiac Arrest Procedures - Intubation Time Out Performed: No Laryngoscope: Brian Size: 4 ET Tube Size: 7.5 ET Tube Uncuffed: Yes Tube Secured Depth (cm): 23 Tube Secured Location: lips Tube Placement Confirmation: visualized tube passing through cords, equal breath sounds bilaterally, no breath sounds over epigastrium, confirmation by capnometry Patient Tolerated Procedure: no complications Intubation Complications: none
[2017-09-28] MEDS ORDERED: FERROUS SULFATE 325 MG TAB PO SCH (09:00)
[2017-09-28] MEDS ORDERED: ASPIRIN 81 MG PO SCH ×2 (09:00)
--- NOTE | 2017-09-28 09:54 | P.DS ---
Providers Date of admission: 09/20/17 07:11 Expected date of discharge: 09/28/17 Attending physician: Remy Cardenas Consults: 09/20/17 11:40 Consult Physician Routine Consulting Provider: Renae Hall Consult Reason/Comments: Management medical Do you want consulting provider notified?: Yes 09/24/17 10:37 Consult Physician Routine Consulting Provider: Ethan Jha Consult Reason/Comments: tachy, run of 8 Do you want consulting provider notified?: Yes 09/26/17 06:52 Consult Physician Routine Consulting Provider: Danisha Hernandez Consult Reason/Comments: Dr Hall requested Nephrology review Do you want consulting provider notified?: Yes, Notify in am 09/27/17 13:05 Consult Physician Urgent Consulting Provider: Lexa Avendano Consult Reason/Comments: ICU Do you want consulting provider notified?: Yes 09/27/17 13:50 Consult Physician Urgent Consulting Provider: Emily Gustafson Consult Reason/Comments: multi vessel cad Do you want consulting provider notified?: Already Contacted Primary care physician: Rubina Stubbs [facility] Course: 72-year-old female admitted on September 20 to undergo low anterior resection for diverticulitis for a sigmoid mass. Patient had recently undergone a colonoscopy. The colonoscopy was incomplete secondary to the inability to pass through the sigmoid colon. Patient underwent a barium enema the CAT scan which did show evidence of severe diverticulosis. There was a questionable sigmoid mass noted on the CAT scan. Patient elected to undergo low anterior resection for diverticulitis prior to surgery patient reportedly had been seen by mobile marketing manager dr ryan in the office. Patient from a cardiac perspective was deemed appropriate risk to undergo the colon surgery. It was noted that the patient did have episodes postop heart rates up into the 110-120 A prior echocardiogram done in the office on November 2015 the report indicated preserved LV function with an EF of 55 repeat echocardiogram done this admission showed a decrease in systolic function EF 35-40. Patient was monitored closely by cardiology service electrolyte were monitored and corrected as indicated patient was followed by cardiology after patient developed episode shortness of breath throughout the hospitalization patient was adamant that she was not experiencing any chest pain when questioning. 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 Postprocedure patient was admitted to the intensive care unit Patient by cardiology's recommendations was scheduled for IMPALA on the . On September 28 patient went into cardiac arrest ACL protocol initiated patient was pronounced Impression History of diverticulitis with severe diverticulosis sigmoid colon mass per previous CAT scan of the abdomen Low anterior resection for a sigmoid colon mass done on September 20 pathology report no evidence of malignancy Electrolyte abnormality hypokalemia, hyponatremia suspect due to diuretics corrected resolved Episodes of nonsustained ventricular tachycardia Acute on chronic systolic heart failure EF per echocardiogram between 35 and 40% New-onset acute systolic heart failure symptomatic Hypo-magnesium Cardiac arrest with pulseless asystole, PEA on September 28 The above impression and plan of care have been discussed and directed by signing physician. Sofie Mcmahan nurse practitioner acting as scribe for signing physician. Patient Condition at Discharge: Poor Plan - Discharge Summary Discharge Rx Participant: No New Discharge Prescriptions: No Action Sucralfate [Carafate] 1 gm PO QID PRN PRN Reason: Heartburn Glimepiride [Amaryl] 4 mg PO AC-BID Aspirin 325 mg PO DAILY amLODIPine [Norvasc] 5 mg PO DAILY metFORMIN HCL [Glucophage] 1,000 mg PO AC-BID Atorvastatin [Lipitor] 20 mg PO QAM Atenolol [Tenormin] 25 mg PO BID Omeprazole 40 mg PO DAILY Meclizine [Antivert] 25 mg PO DAILY PRN PRN Reason: Vertigo Losartan/Hydrochlorothiazide [Losartan-Hctz 100-25 mg Tab] 1 tab PO DAILY Multivitamins, Thera [Multivitamin (formulary)] 1 tab PO DAILY Cholecalciferol [Vitamin D3] 5,000 unit PO DAILY Latanoprost Ophth [Xalatan 0.005%] 1 drops RIGHT EYE HS Vit C/E/Zn/Coppr/Lutein/Zeaxan [Preservision Areds 2 Softgel] 1 cap PO DAILY Ubidecarenone [Co Q-10] 100 mg PO DAILY Theresa-3 Fatty Acids/Fish Oil [Fish Oil 1,000 mg Softgel] 1 cap PO DAILY Ferrous Sulfate [Iron] 325 mg PO DAILY Calcium Carbonate [Calcium] 600 mg PO DAILY Acetaminophen [Tylenol Extra Strength] 1,000 mg PO DAILY PRN PRN Reason: Pain Eye Lubricant Combination No.1 [Freshkote] 1 applic BOTH EYES QID Artificial Tears-Hypromellose [Artificial Tear Drops] 1 drops BOTH EYES TID PRN PRN Reason: Dry Eye(S) [place] Sanz Supplement 1 tab PO DAILY Discharge Medication List Aspirin 325 mg PO DAILY 08/17/17 [History] Atenolol [Tenormin] 25 mg PO BID 08/17/17 [History] Atorvastatin [Lipitor] 20 mg PO QAM 08/17/17 [History] Glimepiride [Amaryl] 4 mg PO AC-BID 08/17/17 [History] Losartan/Hydrochlorothiazide [Losartan-Hctz 100-25 mg Tab] 1 tab PO DAILY [History] Meclizine [Antivert] 25 mg PO DAILY PRN 08/17/17 [History] Omeprazole 40 mg PO DAILY 08/17/17 [History] Sucralfate [Carafate] 1 gm PO QID PRN 08/17/17 [History] amLODIPine [Norvasc] 5 mg PO DAILY 08/17/17 [History] metFORMIN HCL [Glucophage] 1,000 mg PO AC-BID 08/17/17 [History] Acetaminophen [Tylenol Extra Strength] 1,000 mg PO DAILY PRN 09/12/17 [History] Artificial Tears-Hypromellose [Artificial Tear Drops] 1 drops BOTH EYES TID PRN 09/12/17 [History] Calcium Carbonate [Calcium] 600 mg PO DAILY 09/12/17 [History] Cholecalciferol [Vitamin D3] 5,000 unit PO DAILY 09/12/17 [History] Eye Lubricant Combination No.1 [Freshkote] 1 applic BOTH EYES QID 09/12/17 [ History] Ferrous Sulfate [Iron] 325 mg PO DAILY 09/12/17 [History] [place] Sanz Supplement 1 tab PO DAILY 09/12/17 [History] Latanoprost Ophth [Xalatan 0.005%] 1 drops RIGHT EYE HS 09/12/17 [History] Multivitamins, Thera [Multivitamin (formulary)] 1 tab PO DAILY 09/12/17 [History ] Theresa-3 Fatty Acids/Fish Oil [Fish Oil 1,000 mg Softgel] 1 cap PO DAILY [History] Ubidecarenone [Co Q-10] 100 mg PO DAILY 09/12/17 [History] Vit C/E/Zn/Coppr/Lutein/Zeaxan [Preservision Areds 2 Softgel] 1 cap PO DAILY 01/22 [History] Activity/Diet/Wound Care/Special Instructions: full Liquid diet advance as tolerated Discharge Disposition: - Preliminary Cause of Preliminary Cause of : Cardiac arrest pulseless asystole PEA
--- NOTE | 2017-10-03 10:44 | CDI ---
Last Revision, April 2017 Documentation Clarification Form Date: 10/03/17 From: Cassia Overton Phone: If you have a question regarding this query, please contact Shannan Mayo at [phone] between 8am and 5pm. Admit Date: 09/20/2017 7:11:00 AM Patient Name: Ange Bird Visit Number: [id number] Discharge Date: 09/28/17 ATTENTION: The Clinical Documentation Specialists (CDI) and [employer] Coding Staff appreciate your assistance in clarifying documentation. Please respond to the clarification below the line at the bottom and electronically sign. The CDI & [employer] Coding staff will review the response and follow-up if needed. Please note: Queries are made part of the Legal Health Record. If you have any questions, please contact the author of this message via ITS. Dr. Remy Cardenas Mass of the sigmoid colon is documented in the H&P and progress notes. It is also documented in the procedure note. Patient history/risk factors: Patient was admitted with sigmoid diverticulitis and mass. Treatment: Low anterior resection of the sigmoid colon. Surgical pathology: Diverticulosis with submucosal abscess. Acute and chronic inflammation, fibrosis and foreign body reaction consistent with diverticular rupture. Please document specificity of the mass of sigmoid colon. Diverticulitis with rupture Diverticulitis with abscess Other(please specify) Unable to determine Diverticulitis with abscess MTDD
== END 2017-09-28 08:24 | disposition expired | DRG 329 ==
LOC: 2ORMAIN 07:11 → EDSTATUS 09:30 → 3SUR 11:21 → 6SEL 09-26 14:24 → 6ICU 09-27 12:59
PROVIDERS: ADMIT Surgery; ATTEND Surgery
PROC: 0DTN0ZZ Resection of Sigmoid Colon, Open Approach (ICD-10-PCS; principal; 2017-09-20 09:25)
PROC: 4A023N7 Measurement of Cardiac Sampling and Pressure, Left Heart, Percutaneous Approach (ICD-10-PCS; 2017-09-27)
PROC: B2111ZZ Fluoroscopy of Multiple Coronary Arteries using Low Osmolar Contrast (ICD-10-PCS; 2017-09-27)
PROC: B4101ZZ Fluoroscopy of Abdominal Aorta using Low Osmolar Contrast (ICD-10-PCS; 2017-09-27)
PROC: 5A12012 Performance of Cardiac Output, Single, Manual (ICD-10-PCS; 2017-09-28)
DX: K57.20 Diverticulitis of large intestine with perforation and abscess without bleeding (principal); I21.4 Non-ST elevation (NSTEMI) myocardial infarction; I50.23 Acute on chronic systolic (congestive) heart failure; D62 Acute posthemorrhagic anemia; E87.1 Hypo-osmolality and hyponatremia; I47.2 Ventricular tachycardia; E11.51 Type 2 diabetes mellitus with diabetic peripheral angiopathy without gangrene; E11.65 Type 2 diabetes mellitus with hyperglycemia; E78.2 Mixed hyperlipidemia; E83.42 Hypomagnesemia; E87.6 Hypokalemia; F41.1 Generalized anxiety disorder; I11.0 Hypertensive heart disease with heart failure; I25.10 Atherosclerotic heart disease of native coronary artery without angina pectoris; I25.5 Ischemic cardiomyopathy; I27.20 Pulmonary hypertension, unspecified; I46.9 Cardiac arrest, cause unspecified; K21.9 Gastro-esophageal reflux disease without esophagitis; T50.2X5A Adverse effect of carbonic-anhydrase inhibitors, benzothiadiazides and other diuretics, initial encounter; G89.29 Other chronic pain; I83.90 Asymptomatic varicose veins of unspecified lower extremity; M19.90 Unspecified osteoarthritis, unspecified site; M54.9 Dorsalgia, unspecified; R11.2 Nausea with vomiting, unspecified; H81.09 Meniere's disease, unspecified ear; I49.3 Ventricular premature depolarization; D72.829 Elevated white blood cell count, unspecified; I08.0 Rheumatic disorders of both mitral and aortic valves; Z79.82 Long term (current) use of aspirin; Z79.899 Other long term (current) drug therapy; Z79.84 Long term (current) use of oral hypoglycemic drugs; Z87.891 Personal history of nicotine dependence; Z90.710 Acquired absence of both cervix and uterus; Z88.0 Allergy status to penicillin; Z82.49 Family history of ischemic heart disease and other diseases of the circulatory system
CPT/HCPCS: 71045; 71046; 80048; 80053; 81001; 81003; 83036; 83735; 83880; 83930; 83935; 84100; 84295; 84300; 84443; 84484; 85025; 85610; 85730; 86850; 86900; 86901; 87040; 87086; 88307; 93306; 93458; 94640; 94760